=== PATIENT | female | born 1980 | race Caucasian/White ===

== ENCOUNTER → 2018-08-12 09:27 | Outpatient (CLI) | payer MEDICAID, SELFPAY ==
--- NOTE | 2018-08-12 09:29 | MRI_ITS ---
STUDY: MRI CERVICAL SPINE WITHOUT CONTRAST REASON FOR EXAM: Female, 37 years old. Neck pain and left arm numbness and weakness TECHNIQUE: Standardized fat and water weighted pulse sequences were obtained in the sagittal and axial planes. COMPARISON: None FINDINGS: Normal foramen magnum and brainstem-cervical cord junction. Normal craniovertebral junction. Normal anterior atlantoaxial articulation. Normal odontoid process. Normal cervical lordosis. Normal vertebral bodies and posterior osseous elements. C2-3: Normal endplates. Normal disc height, signal and morphology. Normal central canal and intervertebral neural foramina. C3-4: Normal endplates. Normal disc height, signal and morphology. Normal central canal and intervertebral neural foramina. C4-5: Normal endplates. Normal disc height, signal and morphology. Normal central canal and intervertebral neural foramina. C5-6: Normal endplates. Normal disc height, signal and morphology. Normal central canal and intervertebral neural foramina. C6-7: Normal endplates. Normal disc height, signal and morphology. Normal central canal and intervertebral neural foramina. C7-T1: Normal endplates. Normal disc height, signal and morphology. Normal central canal and intervertebral neural foramina. Normal cervical cord. Normal visualized soft tissue structures. MRI/Spine Cervical (Routine) IMPRESSION: Normal unenhanced MR examination of the cervical spine. Electronically Signed: Vikram Dobbs MD at 22:37 EST , Service support ,
--- OUTSIDE RECORDS SUMMARY | 2018-10-17 01:11 | XMS RPT_ITS ---
:1980 Author Organization OHIP Care Team Providers Name Role Phone RANDALL MAGANA Attending Unavailable RANDALL MAGANA Attending Unavailable BETSY LEE ([place]) Attending Unavailable VAMSI SUE Referring Unavailable RANDALL MAGANA Referring Unavailable CHENCHO CANALES (BUSINESS INTELLIGENCE MANAGER) Attending Unavailable BETSY LEE (LAUREEN) Referring Unavailable EFREN AMIN Referring Unavailable YAMILEX UGALDE Attending Unavailable RANDALL MAGANA Referring Unavailable YAMILEX UGALDE Referring Unavailable BETSY LEE ([facility]) Attending Unavailable Randall Magana Attending Unavailable Randall Magana Referring Unavailable Randall Magana Primary Care Unavailable PROBLEMS PROBLEMS DATE TYPE CONDITION / CODE ATTENDING STATUS SOURCE 02/08/2015 Active Personal history of NA Active [facility] malignant neoplasm [place] of thyroid / Repository Z85.850(ICD-10) 12/12/2017 Active Brachial plexus NA Active [facility] disorders / [place] G54.0(ICD-10) Repository 11/05/2017 Active Unknown / JESUS Active [facility] UNK(Unknown) BETSY (BUSINESS INTELLIGENCE MANAGER) [place] Repository 08/28/2016 Active Type 2 diabetes NA Active [facility] mellitus with other [place] diabetic kidney Repository complication / E11.29(ICD-10) 08/28/2016 Active Proteinuria, NA Active [facility] unspecified / [place] R80.9(ICD-10) Repository 02/08/2015 Active Mixed hyperlipidemia NA Active [facility] / E78.2(ICD-10) [place] Repository 12/11/2012 Active Postprocedural NA Active [facility] hypothyroidism / [place] E89.0(ICD-10) Repository PROCEDURES PROCEDURES No Procedure Records FoundRESULTS RESULTS SPINE CERVICAL Observed: 08/12/2018 Status: F Source: [place] (ROUTINE) 9:29 AM [facility] REPOSITORY [facility] Imaging Services [address] [place] [address] Spine Cervical (Routine) MR#: [id number] Acct: [id number] Name: JUAN MENCHACA Rep #: [id number] : 1980 F 37 From: Vikram Dobbs MD PCP: Randall Avila DO Status: REG CLI Study: Spine Cervical (Routine) Date of Exam: 08/12/18 Exam# [id number] Ordering Dr: Randall Magana DO STUDY: MRI CERVICAL SPINE WITHOUT CONTRAST REASON FOR EXAM: Female, 37 years old. Neck pain and left arm numbness and weakness TECHNIQUE: Standardized fat and water weighted pulse sequences were obtained in the sagittal and axial planes. COMPARISON: None FINDINGS: Normal foramen magnum and brainstem-cervical cord junction. Normal craniovertebral junction. Normal anterior atlantoaxial articulation. Normal odontoid process. Normal cervical lordosis. Normal vertebral bodies and posterior osseous elements. C2-3: Normal endplates. Normal disc height, signal and morphology. Normal central canal and intervertebral neural foramina. C3-4: Normal endplates. Normal disc height, signal and morphology. Normal central canal and intervertebral neural foramina. C4-5: Normal endplates. Normal disc height, signal and morphology. Normal central canal and intervertebral neural foramina. C5-6: Normal endplates. Normal disc height, signal and morphology. Normal central canal and intervertebral neural foramina. C6-7: Normal endplates. Normal disc height, signal and morphology. Normal central canal and intervertebral neural foramina. C7-T1: Normal endplates. Normal disc height, signal and morphology. Normal central canal and intervertebral neural foramina. Normal cervical cord. Normal visualized soft tissue structures. MRI/Spine Cervical (Routine) IMPRESSION: Normal unenhanced MR examination of the cervical spine. Electronically Signed: Vikram Dobbs MD at 22:37 EST , Service support , CC: Randall Avila DO Spa Director: Signed PROGRESS Observed: 07/29/2018 Status: COMPLETED Source: [place] 8:15 AM [facility] HNO ID: [id number] Author: Betsy Lee Service: (none) Author Type: Nurse Practitioner Type: Progress Notes Filed: 07/30/2018 10:45 AM Note Text: DIABETES VISIT HISTORIES FAMILY HISTORY Problem Relation Age of Onset - Diabetes Mother diverticular disease - Hypertension Mother - Arthritis Mother - Asthma Mother - Lipids Mother - Cancer Mother 60 anal - Diabetes Father - Hypertension Father - Diabetes Sister - Thyroid Sister - Hypertension Sister - Diabetes Sister - other (endometriosis) Sister - Breast Cancer Maternal Grandmother 30 - Breast Cancer Maternal Aunt 18 bilateral mastectomy PAST MEDICAL HISTORY Diagnosis Date - Abnormal glandular Papanicolaou smear of cervix 2004 Abn. Pap smear (cervix) - Acute anal fissure now closed - Allergic rhinitis - Asthma CHILDHOOD ASTHMA - Coccygeal arthritis seen on xray - Diabetes mellitus 01/2010 NIDDM - Dyspareunia 07/24/2013 - GERD (gastroesophageal reflux disease) - Hidradenitis suppurativa 01/28/2012 - Hypertension - PCOS (polycystic ovarian syndrome) - Right shoulder pain 12/11/2012 - Rosacea - Thyroid cancer (HCC) 10/02/2012 s/p thyroidectomy, Dr. Camcaho PAST SURGICAL HISTORY Procedure Laterality Date - COLONOSCOP W/ OR W/O BRSH SPEC 09/07/2014 Colonoscopy - EGD W/O OR W/BRUSH/WASH 11/11/13 EGD - FNA WITH IMAGING 08/19/12 U/S FNA left thyroid nodule - LAPAROSCOPY DIAGNOSTIC 2011 ectopic salpingectomy, L ovarian cystectomies - LEEP PROCEDURE (EXECUTIVE DIRECTOR OF NURSING DEPT)_*FL 1993 [id number] - OTHER 08/03/2014 left axillary skin resection hidratinitis - THYROIDECTOMY 10-02-12 TOTAL - cancerous. 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 Social History Main Topics Smoking status: Current Every Day Smoker Packs/day: 0.50 Years: 9.00 Types: Cigarettes Last attempt to quit: 01/25/2014 Smokeless tobacco: Never Used Alcohol use: Yes Comment: Seldom Drug use: No Sexual activity: Yes Partners with: Male control/protection: Pill Immunization History Administered Date(s) Administered Influenza Seasonal Inj Quadrivalent Age 3+ 08/05/2016 04/21/2017 05/29/2018 Influenza Vaccine, Split-Non Spec 06/25/2011 06/22/2012 07/01/2013 Pneumovax 06/22/2012 ALLERGIES Allergen Reactions - Erythromycin Hives, Swelling Current Outpatient Prescriptions on File Prior to Visit: betamethasone dipropionate (DIPROSONE) 0.05 % cream Apply 1 application to affected area twice daily as needed. blood sugar diagnostic (FREESTYLE LITE STRIPS) test strip TEST BLOOD SUGARS 3 TIMES DAILY Blood-Glucose Meter, Drum-type (ACCU-CHEK COMPACT PLUS CARE) kit Use as directed 6 times daily cyclobenzaprine (FLEXERIL) 10 mg tablet TAKE 1 TABLET BY MOUTH THREE TIMES DAILY NEEDED. dicyclomine (BENTYL) 20 mg tablet TAKE 1 TABLET BY MOUTH 4 TIMES A DAY NEEDED diphenhydrAMINE (BENADRYL) 25 mg capsule Take 1 capsule by mouth every 6 hours as needed for Itching/Rash. glyBURIDE (DIABETA) 2.5 mg tablet Take 1 tablet by mouth twice daily with meals. levothyroxine (SYNTHROID) 175 mcg tablet Take 1 tablet by mouth once daily. metFORMIN (GLUCOPHAGE) 500 mg tablet Take 2 tablets by mouth twice daily with meals. pantoprazole DR (PROTONIX) 40 mg tablet Take 1 tablet by mouth once daily. polyethylene glycol 3350 (MIRALAX, GLYCOLAX) 17 gram packet Take 1 Packet by mouth once daily. (Patient taking differently: Take 17 g by mouth as needed. ) multivitamin ( VITAMIN WITH MINERALS) 28 mg iron- 800 mcg tab Take 1 tablet by mouth once daily. simvastatin (ZOCOR) 20 mg tablet Take 1 tablet by mouth daily at bedtime. wheat dextrin (BENEFIBER SUGAR FREE, DEXTRIN,) 3 gram/3.8 gram powd Take by mouth. No current facility-administered medications on file prior to visit. LABS TSH (uU/mL) Date Value 05/16/2018 0.701 11/01/2017 0.135 05/14/2017 0.674 ALT (U/L) Date Value 05/16/2018 21 11/01/2017 17 05/14/2017 24 Potassium (mmol/L) Date Value 05/16/2018 4.2 11/01/2017 4.6 Creatinine (mg/dL) Date Value 05/16/2018 0.87 11/01/2017 0.86 05/14/2017 0.79 Hemoglobin A1C (%) Date Value 05/16/2018 7.4 11/01/2017 6.1 05/14/2017 7.1 Albumin, Urine Random (mg/L) Date Value 11/01/2017 23.1 07/04/2016 71.0 04/26/2015 34.7 Creatinine, Ur Random (UCRR) (mg/dL) Date Value 11/01/2017 111.3 04/26/2015 120.6 Albumin/Creat Ratio (mg/g) Date Value 11/01/2017 21 04/26/2015 29 Glucose (mg/dL) Date Value 05/16/2018 168 11/01/2017 137 05/14/2017 168 Calcium (mg/dL) Date Value 05/16/2018 9.5 11/01/2017 9.9 Vitamin D 25 Hydroxy (ng/mL) Date Value 02/11/2013 35.5 11/04/2012 12.0 Lipids: Cholesterol, Total (mg/dL) Date Value 05/16/2018 240 11/01/2017 157 05/14/2017 156 HDL Cholesterol (mg/dL) Date Value 05/16/2018 30 11/01/2017 28 05/14/2017 27 LDL Cholesterol (mg/dL) Date Value 05/16/2018 143 11/01/2017 93 05/14/2017 86 Triglyceride (mg/dL) Date Value 05/16/2018 335 11/01/2017 181 05/14/2017 215 I reviewed the Slice Cutting Machine Operator Helper's notes with this visit for vital signs, current allergies, medications, electronic medical record, lab(s), outside lab(s), and or back office lab(s) results, history of vaccinations, and chief complaints. I edited the information obtained, as required. HISTORY OF PRESENT ILLNESS Last endo office visit: 11/05/2017 with me, last office visit with Dr. 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 Patient has had diabetes since 2009. Also known history of obesity, hypertension, hirsutism Family history re DM : parents Patient's last HgA1C was Hemoglobin A1C (%) Date Value 05/16/2018 7.4 Component Latest Ref Rng AND Units 08/05/2016 10/14/2016 05/14/2017 11/01/2017 05/16/2018 Thyroglobulin 1.6 - 59.9 ng/mL <0.2 (L) TG Antibody Screen <14.4 IU/mL 2.2 Free T4 0.9 - 1.7 ng/dL 1.6 1.5 2.0 (H) 1.8 (H) TSH 0.400 - 5.500 uU/mL 0.090 (L) 0.386 (L) 0.674 0.135 (L) 0.701 -in past office visit, the patient was contemplating , so medications were adjusted accordingly--she now states she is not going to become and will be discussing control with her EXECUTIVE DIRECTOR OF NURSING -she states that her was recently diagnosed with diabetes, so she and he are going to eating better -she had flu shot this fall -winding down from the holidays--had a houseful of children for -has weakness in left arm with numbness and tingling as well as decreased ROM--was told it is not Thoracic outlet syndrome by vascular surgeon --will be having this reevaluated soon Diet: Breakfast: 1/2 C cheerios + milk or toast + 4 oz Snack: yogurt --plain vanilla Lunch: Usually skips Dinner: Chicken + veg + mashed pots or spaghetti Tea/splenda Snack: pkg PB crackers Medications: The patient is currently taking the following medications to manage her diabetes: -metformin 500 mg two tablets twice daily -glyburide 2.5 mg twice daily The patient is currently taking levothyroxine 175 mcg daily to manage her thyroid CA She is compliant with medication(s) and is tolerating med(s) without any side effects. Monitoring: She reports checking her glucose with meter: 3 times a day BG Values: Patient did not bring meter or log for review today. Patient states FBSs 115-136 (usually the highest reading), Lunch ~ 105, Dinner 120-130 Other issues: Last Ophthalmology exam was 02/2018 Hypoglycemia awareness:yes, but rare occurrence. Exercise: exercise bike 30 min 3 times weekly REVIEW OF SYSTEMS: GENERAL: No weight loss, malaise or fevers WEIGHT: gained a few pounds over the holidays EYES:denies any recent visual changes CARDIAC: no chest pain, dyspnea, palpitations, edema, orthopnea, cough LUNG:Negative for cough, hemoptysis, wheezing, COPD, dyspnea or shortness of breath GI: no nausea, fullness, vomiting, diarrhea, constipation, GI bleeding or heartburn :no dysuria, frequency, hesitancy, hematuria, polyuria, nocturia, UTIs, yeast infections, or kidney stones SKIN: Pt denies ulceration,cellulitis, abscess, acne, hirsutism, rashes, or lesions FEET:Pt denies callus formation, foot deformity including partial or complete amputation of the foot, ulceration, or peripheral neuropathy MUSCULO-SKELETAL: see above, also left neck pain NERVOUS SYSTEM: no numbness, paresthesias, weakness, cramping, burning or dizziness The rest of the ROS is otherwise negative PHYSICAL EXAM: BP 140/86 (BP Site: Left Arm, BP Position: Sitting, BP Cuff Size: Regular Adult) Pulse 92 Ht 167.2 cm (5' 5.83) Wt 102.1 kg (225 lb) SpO2 95% BMI 36.51 kg/m? Wt: 100.7 kg (222 lb) BMI: 38.11 kg/(m2) Last 2 Encounter Wt Readings: Date: Wt: 07/17/2018 100.7 kg (222 lb) 05/29/2018 100.7 kg (222 lb) Appearance:Well appearing, alert, in no acute distress, well-hydrated, well nourished. and Obese Eyes:PERRLA, conjunctiva and sclera normal Neck: Supple, no adenopathy; thyroidectomy scar is visible Heart:RRR with no JVD appreciated Lungs:clear to auscultation Extremities: No skin discoloration and No edema Neuro:Awake, alert and oriented x 3, No involuntary motions. and Cranial nerves II-XII grossly intact Feet: Foot exam 07/17/2018 Skin:Color, texture, turgor normal. No rashes or lesions IMPRESSION AND PLAN: (E11.29, R80.9) Type 2 diabetes mellitus with microalbuminuria, without long-term current use of insulin (HCC) (primary encounter diagnosis) Comment: most recent A1c on 05/16 at 7.4%. Patient is not planning future , will add alogliptin Plan: -Medications: -continue metformin 50 mg two tablets twice daily -continue glyburide 2.5 mg twice daily -add alogliptin 25 mg daily -Refills: Yes, patient requests e-script prescription -Recommended diet: Low carbohydrate and Low saturated fat, low simple sugar, high fiber diet -Recommended exercise: 150 minutes of exercise weekly -Monitor blood glucose 2-3 times per day. The patient was advised to contact the office if the blood sugar readings are consistently high or if having frequent hypoglycemia. -Driving and Diabetes has been reviewed with the patient (E89.0) Hypothyroidism, postsurgical (Z85.850) History of thyroid cancer Comment: denies symptoms of hypo or hyperthyroidism with most recent labs 04/2018 Plan: -continue levothyroxine 175 mcg daily -follow up for thyroid in April 2019 (E66.09) Class 2 obesity due to excess calories in adult, unspecified BMI, unspecified whether serious comorbidity present Comment: Body mass index is 36.51 kg/m?. Plan: -discussed diet and exercise -encourage weight loss (R03.0) Elevated blood pressure reading without diagnosis of hypertension Comment: BP elevated today, she feels due to lack of sleep Plan: -she will take BP in community and follow up with PCP if needed Patient to continue to follow up with her Primary Care Provider and with other consultants regarding her other medical problems. Entire visit was 30 min with >50% of time spent as face to face counseling regarding blood sugar monitoring, review of risks, benefits, and side effects of medication(s), symptoms AND treatment of hypoglycemia, importance of diet adherence, discussion of BMI and weight goals and importance of exercise program and Plan of Care. Next visit in 9 months (April) with Dr. Sue . Betsy Lee MSN, BUSINESS INTELLIGENCE MANAGER, CDE Department of Endocrinology, Diabetes and Metabolism CNOV Observed: 07/29/2018 Status: COMPLETED Source: [place] 8:15 AM [facility] REPOSITORY Office Visit (ENDMED) JUAN MENCHACA ([id number]) 1980 F Date Time Provider Department 07/29/18 8:15 AM BETSY LEE (LAUREEN) MARGARETTE During your visit today, we recorded the following information about you: Pulse Blood pressure Weight Height 92/minute 140/86 102.1 kg 1.672 m Betsy Lee APRN.CNP 07/30/2018 10:45 AM Signed DIABETES VISIT HISTORIES FAMILY HISTORY Problem Relation Age of Onset - Diabetes Mother diverticular disease - Hypertension Mother - Arthritis Mother - Asthma Mother - Lipids Mother - Cancer Mother 60 anal - Diabetes Father - Hypertension Father - Diabetes Sister - Thyroid Sister - Hypertension Sister - Diabetes Sister - other (endometriosis) Sister - Breast Cancer Maternal Grandmother 30 - Breast Cancer Maternal Aunt 18 bilateral mastectomy PAST MEDICAL HISTORY Diagnosis Date - Abnormal glandular Papanicolaou smear of cervix 2004 Abn. Pap smear (cervix) - Acute anal fissure now closed - Allergic rhinitis - Asthma CHILDHOOD ASTHMA - Coccygeal arthritis seen on xray - Diabetes mellitus 01/2010 NIDDM - Dyspareunia 07/24/2013 - GERD (gastroesophageal reflux disease) - Hidradenitis suppurativa 01/28/2012 - Hypertension - PCOS (polycystic ovarian syndrome) - Right shoulder pain 12/11/2012 - Rosacea - Thyroid cancer (HCC) 10/02/2012 s/p thyroidectomy, Dr. Camacho PAST SURGICAL HISTORY Procedure Laterality Date - COLONOSCOP W/ OR W/O BRSH SPEC 09/07/2014 Colonoscopy - EGD W/O OR W/BRUSH/WASH 11/11/13 EGD - FNA WITH IMAGING 08/19/12 U/S FNA left thyroid nodule - LAPAROSCOPY DIAGNOSTIC 2011 ectopic salpingectomy, L ovarian cystectomies - LEEP PROCEDURE (EXECUTIVE DIRECTOR OF NURSING DEPT)_*FL 1993 [id number] - OTHER 08/03/2014 left axillary skin resection hidratinitis - THYROIDECTOMY 10-02-12 TOTAL - cancerous. 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 Social History Main Topics Smoking status: Current Every Day Smoker Packs/day: 0.50 Years: 9.00 Types: Cigarettes Last attempt to quit: 01/25/2014 Smokeless tobacco: Never Used Alcohol use: Yes Comment: Seldom Drug use: No Sexual activity: Yes Partners with: Male control/protection: Pill Immunization History Administered Date(s) Administered Influenza Seasonal Inj Quadrivalent Age 3+ 08/05/2016 04/21/2017 05/29/2018 Influenza Vaccine, Split-Non Spec 06/25/2011 06/22/2012 07/01/2013 Pneumovax 06/22/2012 ALLERGIES Allergen Reactions - Erythromycin Hives, Swelling Current Outpatient Prescriptions on File Prior to Visit: betamethasone dipropionate (DIPROSONE) 0.05 % cream Apply 1 application to affected area twice daily as needed. blood sugar diagnostic (FREESTYLE LITE STRIPS) test strip TEST BLOOD SUGARS 3 TIMES DAILY Blood-Glucose Meter, Drum-type (ACCU-CHEK COMPACT PLUS CARE) kit Use as directed 6 times daily cyclobenzaprine (FLEXERIL) 10 mg tablet TAKE 1 TABLET BY MOUTH THREE TIMES DAILY NEEDED. dicyclomine (BENTYL) 20 mg tablet TAKE 1 TABLET BY MOUTH 4 TIMES A DAY NEEDED diphenhydrAMINE (BENADRYL) 25 mg capsule Take 1 capsule by mouth every 6 hours as needed for Itching/Rash. glyBURIDE (DIABETA) 2.5 mg tablet Take 1 tablet by mouth twice daily with meals. levothyroxine (SYNTHROID) 175 mcg tablet Take 1 tablet by mouth once daily. metFORMIN (GLUCOPHAGE) 500 mg tablet Take 2 tablets by mouth twice daily with meals. pantoprazole DR (PROTONIX) 40 mg tablet Take 1 tablet by mouth once daily. polyethylene glycol 3350 (MIRALAX, GLYCOLAX) 17 gram packet Take 1 Packet by mouth once daily. (Patient taking differently: Take 17 g by mouth as needed. ) multivitamin ( VITAMIN WITH MINERALS) 28 mg iron- 800 mcg tab Take 1 tablet by mouth once daily. simvastatin (ZOCOR) 20 mg tablet Take 1 tablet by mouth daily at bedtime. wheat dextrin (BENEFIBER SUGAR FREE, DEXTRIN,) 3 gram/3.8 gram powd Take by mouth. No current facility-administered medications on file prior to visit. LABS TSH (uU/mL) Date Value 05/16/2018 0.701 11/01/2017 0.135 05/14/2017 0.674 ALT (U/L) Date Value 05/16/2018 21 11/01/2017 17 05/14/2017 24 Potassium (mmol/L) Date Value 05/16/2018 4.2 11/01/2017 4.6 Creatinine (mg/dL) Date Value 05/16/2018 0.87 11/01/2017 0.86 05/14/2017 0.79 Hemoglobin A1C (%) Date Value 05/16/2018 7.4 11/01/2017 6.1 05/14/2017 7.1 Albumin, Urine Random (mg/L) Date Value 11/01/2017 23.1 07/04/2016 71.0 04/26/2015 34.7 Creatinine, Ur Random (UCRR) (mg/dL) Date Value 11/01/2017 111.3 04/26/2015 120.6 Albumin/Creat Ratio (mg/g) Date Value 11/01/2017 21 04/26/2015 29 Glucose (mg/dL) Date Value 05/16/2018 168 11/01/2017 137 05/14/2017 168 Calcium (mg/dL) Date Value 05/16/2018 9.5 11/01/2017 9.9 Vitamin D 25 Hydroxy (ng/mL) Date Value 02/11/2013 35.5 11/04/2012 12.0 Lipids: Cholesterol, Total (mg/dL) Date Value 05/16/2018 240 11/01/2017 157 05/14/2017 156 HDL Cholesterol (mg/dL) Date Value 05/16/2018 30 11/01/2017 28 05/14/2017 27 LDL Cholesterol (mg/dL) Date Value 05/16/2018 143 11/01/2017 93 05/14/2017 86 Triglyceride (mg/dL) Date Value 05/16/2018 335 11/01/2017 181 05/14/2017 215 I reviewed the Slice Cutting Machine Operator Helper's notes with this visit for vital signs, current allergies, medications, electronic medical record, lab(s), outside lab(s), and or back office lab(s) results, history of vaccinations, and chief complaints. I edited the information obtained, as required. HISTORY OF PRESENT ILLNESS Last endo office visit: 11/05/2017 with me, last office visit with Dr. 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 Patient has had diabetes since 2009. Also known history of obesity, hypertension, hirsutism Family history re DM : parents Patient's last HgA1C was Hemoglobin A1C (%) Date Value 05/16/2018 7.4 Component Latest Ref Rng AND Units 08/05/2016 10/14/2016 05/14/2017 11/01/2017 05/16/2018 Thyroglobulin 1.6 - 59.9 ng/mL <0.2 (L) TG Antibody Screen <14.4 IU/mL 2.2 Free T4 0.9 - 1.7 ng/dL 1.6 1.5 2.0 (H) 1.8 (H) TSH 0.400 - 5.500 uU/mL 0.090 (L) 0.386 (L) 0.674 0.135 (L) 0.701 -in past office visit, the patient was contemplating , so medications were adjusted accordingly--she now states she is not going to become and will be discussing control with her EXECUTIVE DIRECTOR OF NURSING -she states that her was recently diagnosed with diabetes, so she and he are going to eating better -she had flu shot this fall -winding down from the holidays--had a houseful of children for -has weakness in left arm with numbness and tingling as well as decreased ROM--was told it is not Thoracic outlet syndrome by vascular surgeon --will be having this reevaluated soon Diet: Breakfast: 1/2 C cheerios + milk or toast + 4 oz Snack: yogurt --plain vanilla Lunch: Usually skips Dinner: Chicken + veg + mashed pots or spaghetti Tea/splenda Snack: pkg PB crackers Medications: The patient is currently taking the following medications to manage her diabetes: -metformin 500 mg two tablets twice daily -glyburide 2.5 mg twice daily The patient is currently taking levothyroxine 175 mcg daily to manage her thyroid CA She is compliant with medication(s) and is tolerating med(s) without any side effects. Monitoring: She reports checking her glucose with meter: 3 times a day BG Values: Patient did not bring meter or log for review today. Patient states FBSs 115-136 (usually the highest reading), Lunch ~ 105, Dinner 120-130 Other issues: Last Ophthalmology exam was 02/2018 Hypoglycemia awareness:yes, but rare occurrence. Exercise: exercise bike 30 min 3 times weekly REVIEW OF SYSTEMS: GENERAL: No weight loss, malaise or fevers WEIGHT: gained a few pounds over the holidays EYES:denies any recent visual changes CARDIAC: no chest pain, dyspnea, palpitations, edema, orthopnea, cough LUNG:Negative for cough, hemoptysis, wheezing, COPD, dyspnea or shortness of breath GI: no nausea, fullness, vomiting, diarrhea, constipation, GI bleeding or heartburn :no dysuria, frequency, hesitancy, hematuria, polyuria, nocturia, UTIs, yeast infections, or kidney stones SKIN: Pt denies ulceration,cellulitis, abscess, acne, hirsutism, rashes, or lesions FEET:Pt denies callus formation, foot deformity including partial or complete amputation of the foot, ulceration, or peripheral neuropathy MUSCULO-SKELETAL: see above, also left neck pain NERVOUS SYSTEM: no numbness, paresthesias, weakness, cramping, burning or dizziness The rest of the ROS is otherwise negative PHYSICAL EXAM: BP 140/86 (BP Site: Left Arm, BP Position: Sitting, BP Cuff Size: Regular Adult) Pulse 92 Ht 167.2 cm (5' 5.83) Wt 102.1 kg (225 lb) SpO2 95% BMI 36.51 kg/m? Wt: 100.7 kg (222 lb) BMI: 38.11 kg/(m2) Last 2 Encounter Wt Readings: Date: Wt: 07/17/2018 100.7 kg (222 lb) 05/29/2018 100.7 kg (222 lb) Appearance:Well appearing, alert, in no acute distress, well- hydrated, well nourished. and Obese Eyes:PERRLA, conjunctiva and sclera normal Neck: Supple, no adenopathy; thyroidectomy scar is visible Heart:RRR with no JVD appreciated Lungs:clear to auscultation Extremities: No skin discoloration and No edema Neuro:Awake, alert and oriented x 3, No involuntary motions. and Cranial nerves II-XII grossly intact Feet: Foot exam 07/17/2018 Skin:Color, texture, turgor normal. No rashes or lesions IMPRESSION AND PLAN: (E11.29, R80.9) Type 2 diabetes mellitus with microalbuminuria, without long-term current use of insulin ([facility]) (primary encounter diagnosis) Comment: most recent A1c on 05/16 at 7.4%. Patient is not planning future , will add alogliptin Plan: -Medications: -continue metformin 50 mg two tablets twice daily -continue glyburide 2.5 mg twice daily -add alogliptin 25 mg daily -Refills: Yes, patient requests e-script prescription -Recommended diet: Low carbohydrate and Low saturated fat, low simple sugar, high fiber diet -Recommended exercise: 150 minutes of exercise weekly -Monitor blood glucose 2-3 times per day. The patient was advised to contact the office if the blood sugar readings are consistently high or if having frequent hypoglycemia. -Driving and Diabetes has been reviewed with the patient (E89.0) Hypothyroidism, postsurgical (Z85.850) History of thyroid cancer Comment: denies symptoms of hypo or hyperthyroidism with most recent labs 04/2018 Plan: -continue levothyroxine 175 mcg daily -follow up for thyroid in April 2019 (E66.09) Class 2 obesity due to excess calories in adult, unspecified BMI, unspecified whether serious comorbidity present Comment: Body mass index is 36.51 kg/m?. Plan: -discussed diet and exercise -encourage weight loss (R03.0) Elevated blood pressure reading without diagnosis of hypertension Comment: BP elevated today, she feels due to lack of sleep Plan: -she will take BP in community and follow up with PCP if needed Patient to continue to follow up with her Primary Care Provider and with other consultants regarding her other medical problems. Entire visit was 30 min with >50% of time spent as face to face counseling regarding blood sugar monitoring, review of risks, benefits, and side effects of medication(s), symptoms AND treatment of hypoglycemia, importance of diet adherence, discussion of BMI and weight goals and importance of exercise program and Plan of Care. Next visit in 9 months (April) with Dr. Sue . Betsy Lee MSN, BUSINESS INTELLIGENCE MANAGER, CDE Department of Endocrinology, Diabetes and Metabolism Betsy Lee, GAMBLING SUPERVISOR.LAUREEN 07/29/2018 9:17 AM Signed Continue metformin 500 mg two tablets twice daily Continue glyburide 2.5 mg twice daily Add alogliptin 25 mg daily Referring Provider: SELF [200] Allergies As of Date: 07/29/2018 Noted Allergy Reaction ERYTHROMYCIN 01/02/2009 4 - Hives 7 - Swelling Date Reviewed: 07/29/2018 Reviewed by: Betsy (Laureen) Jesus - Fully Assessed Reason for Visit: Diabetes [34] Primary Visit Diagnosis:Type 2 diabetes mellitus with microalbuminuria, without long-term current use of insulin (HCC) [E11.29, R80.9] Other Visit Diagnoses:Hypothyroidism, postsurgical [E89.0] History of thyroid cancer [Z85.850] Class 2 obesity due to excess calories in adult, unspecified BMI, unspecified whether serious comorbidity present [E66.09] Elevated blood pressure reading without diagnosis of hypertension [R03.0] Order(s):dicyclomine (BENTYL) 20 mg tabletTAKE 1 TABLET BY MOUTH 4 TIMES A DAY NEEDEDDisp: 120 tabletRfl: 6 metFORMIN (GLUCOPHAGE) 500 mg tabletTake 2 tablets by mouth twice daily with meals.Disp: 360 tabletRfl: 3 levothyroxine (SYNTHROID) 175 mcg tabletTake 1 tablet by mouth once daily.Disp: 90 tabletRfl: 3 glyBURIDE (DIABETA) 2.5 mg tabletTake 1 tablet by mouth twice daily with meals.Disp: 90 tabletRfl: 3 alogliptin (NESINA) 25 mg tabTake 1 tablet by mouth once daily.Disp: 90 tabletRfl: 3 Prescriptions as of 07/29/2018 Sig: METFORMIN 500 MG TABLET Take 2 tablets by mouth twice* LEVOTHYROXINE 175 MCG TABLET Take 1 tablet by mouth once d* GLYBURIDE 2.5 MG TABLET Take 1 tablet by mouth twice * CYCLOBENZAPRINE 10 MG TABLET TAKE 1 TABLET BY MOUTH THREE * SIMVASTATIN 20 MG TABLET Take 1 tablet by mouth daily * WHEAT DEXTRIN 3 GRAM/3.8 GRAM* Take by mouth. BLOOD SUGAR DIAGNOSTIC STRIPS TEST BLOOD SUGARS 3 TIMES OSORIO* POLYETHYLENE GLYCOL 3350 17 G* Take 1 Packet by mouth once d* Patient taking differently: Take 17 g by mouth as needed.* PANTOPRAZOLE 40 MG TABLET,DEL* Take 1 tablet by mouth once d* BETAMETHASONE DIPROPIONATE 0.* Apply 1 application to affect* DICYCLOMINE 20 MG TABLET TAKE 1 TABLET BY MOUTH 4 TIME* ALOGLIPTIN 25 MG TABLET Take 1 tablet by mouth once d* BLOOD-GLUCOSE METER, DRUM-TYP* Use as directed 6 times daily Medication notes this encounter DIPHENHYDRAMINE 25 MG CAPSULE >> Giovany Baker Ma 07/29/2018 8:34 AM >> GIOVANY BAKER MA FriJul 29, 2018 8:34 AM D/c VITAMIN-FERROUS FUMARATE 28 MG IRON-FOLIC ACID 800 MCG TABLET >> Giovany Baker Ma 07/29/2018 8:35 AM >> GIOVANY BAKER MA FriJul 29, 2018 8:35 AM D/c Problem List As Of Date 07/29/2018 Noted Resolved Supervision of other high-risk [O09.8*INVALID FOR*01/28/2012 Obesity [E66.9] INVALID FOR* GERD (gastroesophageal reflux disease) [K21.9] INVALID FOR* Depression [F32.9] INVALID FOR* Hypothyroidism, postsurgical [E89.0] INVALID FOR* Type 2 diabetes mellitus with microalbuminuria,*INVALID FOR* Hyperprolactinemia [E22.1] INVALID FOR*08/16/2014 Stress incontinence [N39.3] INVALID FOR* Mixed hyperlipidemia [E78.2] INVALID FOR* History of thyroid cancer [Z85.850] INVALID FOR* Coccygeal arthritis [M48.9] INVALID FOR*08/28/2016 Obesity, Class I, BMI 30-34.9 [E66.9] INVALID FOR* Constipation [K59.00] INVALID FOR* Paresthesia of left arm [R20.2] INVALID FOR* Paresthesia of right arm [R20.2] INVALID FOR* Varicose veins of bilateral lower extremities w*INVALID FOR* Arterial thoracic outlet syndrome of left subcl*INVALID FOR* Other instructions from your clinician: Continue metformin 500 mg two tablets twice daily Continue glyburide 2.5 mg twice daily Add alogliptin 25 mg daily Prescriptions ordered this encounter Disp Refills Start End DICYCLOMINE 20 MG TABLET 120 * 6 07/29/2018 Class: Med Update Sig: TAKE 1 TABLET BY MOUTH 4 TIMES A DAY NEEDED METFORMIN 500 MG TABLET 360 * 3 07/29/2018 Route: ORAL Sig: Take 2 tablets by mouth twice daily with meals. LEVOTHYROXINE 175 MCG TABLET 90 t* 3 07/29/2018 Route: ORAL Sig: Take 1 tablet by mouth once daily. GLYBURIDE 2.5 MG TABLET 90 t* 3 07/29/2018 Route: ORAL Sig: Take 1 tablet by mouth twice daily with meals. ALOGLIPTIN 25 MG TABLET 90 t* 3 07/29/2018 Route: ORAL Sig: Take 1 tablet by mouth once daily. Medications Discontinued During This Encounter dicyclomine (BENTYL) 20 mg tablet 120 * 6 11/14/2016 07/29/2018 Sig: TAKE 1 TABLET BY MOUTH 4 TIMES A DAY NEEDED Disc: Course of therapy completed Cosign accepted by ALYSON RITTER MD[[id number]] on 11/15/2016 7:16 AM diphenhydrAMINE (BENADRYL) 25 mg cap* 20 c* 0 10/03/2017 07/29/2018 Route: ORAL Sig: Take 1 capsule by mouth every 6 hours as needed for Itching/Rash. Disc: Course of therapy completed multivitamin ( WARD* 90 t* 3 06/18/2017 07/29/2018 Route: ORAL Sig: Take 1 tablet by mouth once daily. Disc: Course of therapy completed metFORMIN (GLUCOPHAGE) 500 mg tablet 360 * 0 06/22/2018 07/29/2018 Route: ORAL Sig: Take 2 tablets by mouth twice daily with meals. Disc: Reason for discontinue is not on file. levothyroxine (SYNTHROID) 175 mcg ta* 30 t* 1 06/22/2018 07/29/2018 Route: ORAL Sig: Take 1 tablet by mouth once daily. Disc: Reason for discontinue is not on file. glyBURIDE (DIABETA) 2.5 mg tablet 90 t* 0 05/29/2018 07/29/2018 Route: ORAL Sig: Take 1 tablet by mouth twice daily with meals. Disc: Reason for discontinue is not on file. Follow-up and Disposition History Recorded Encounter Status:Closed by BETSY LEE CNP on 07/30/18 PROGRESS Observed: 07/17/2018 Status: COMPLETED Source: [place] 1:41 PM [facility] RE[facility]IT[facility] O ID: [id number] Author: Randall Magana Service: (none) Author Type: Physician Type: Progress Notes Filed: 07/18/2018 8:08 AM Note Text: WILLIAMS Menchaca is a 37 year old female who presents to the office for left arm pain HPI: Left neck and arm pain into hands, has been occurring on a constant with intermittent worsening basis for several years. Was diagnosed with concerns for thoracic arterial origin outlet syndrome per testing at [facility]. She was recently seen by Vascular surgeon who repeated the testing in his office but less comprehensive testing and states that she doesn't have TOS. She is getting frustrated since she continues to have worsening weakness in her left hand, tingling in left hand/fingers as well as difficulty with raising left shoulder above 90 degrees based on demonstration. Symptoms into the neck, these issues all started after a fall off of a swing several years ago. Has been using different NSAIDs and other topical medications without relief. PAST MEDICAL HISTORY Diagnosis Date - Abnormal glandular Papanicolaou smear of cervix 2004 Abn. Pap smear (cervix) - Acute anal fissure now closed - Allergic rhinitis - Asthma CHILDHOOD ASTHMA - Coccygeal arthritis seen on xray - Diabetes mellitus 01/2010 NIDDM - Dyspareunia 07/24/2013 - GERD (gastroesophageal reflux disease) - Hidradenitis suppurativa 01/28/2012 - Hypertension - PCOS (polycystic ovarian syndrome) - Right shoulder pain 12/11/2012 - Rosacea - Thyroid cancer (HCC) 10/02/2012 s/p thyroidectomy, Dr. Camacho PAST SURGICAL HISTORY Procedure Laterality Date - COLONOSCOP W/ OR W/O [facility] SPEC 09/07/2014 Colonoscopy - EGD W/O OR W/BRUSH/WASH 11/11/13 EGD - FNA WITH IMAGING 08/19/12 U/S FNA left thyroid nodule - LAPAROSCOPY DIAGNOSTIC 2011 ectopic salpingectomy, L ovarian cystectomies - LEEP PROCEDURE (EXECUTIVE DIRECTOR OF NURSING DEPT)_*FL 1993 [id number] - OTHER 08/03/2014 left axillary skin resection hidratinitis - THYROIDECTOMY 10-02-12 TOTAL - cancerous. Current Outpatient Prescriptions: betamethasone dipropionate (DIPROSONE) 0.05 % cream Apply 1 application to affected area twice daily as needed. blood sugar diagnostic (FREESTYLE LITE STRIPS) test strip TEST BLOOD SUGARS 3 TIMES DAILY cyclobenzaprine (FLEXERIL) 10 mg tablet TAKE 1 TABLET BY MOUTH THREE TIMES DAILY NEEDED. dicyclomine (BENTYL) 20 mg tablet TAKE 1 TABLET BY MOUTH 4 TIMES A DAY NEEDED diphenhydrAMINE (BENADRYL) 25 mg capsule Take 1 capsule by mouth every 6 hours as needed for Itching/Rash. glyBURIDE (DIABETA) 2.5 mg tablet Take 1 tablet by mouth twice daily with meals. levothyroxine (SYNTHROID) 175 mcg tablet Take 1 tablet by mouth once daily. metFORMIN (GLUCOPHAGE) 500 mg tablet Take 2 tablets by mouth twice daily with meals. polyethylene glycol 3350 (MIRALAX, GLYCOLAX) 17 gram packet Take 1 Packet by mouth once daily. (Patient taking differently: Take 17 g by mouth as needed. ) multivitamin ( VITAMIN WITH MINERALS) 28 mg iron- 800 mcg tab Take 1 tablet by mouth once daily. simvastatin (ZOCOR) 20 mg tablet Take 1 tablet by mouth daily at bedtime. wheat dextrin (BENEFIBER SUGAR FREE, DEXTRIN,) 3 gram/3.8 gram powd Take by mouth. Blood-Glucose Meter, Drum-type (ACCU-CHEK COMPACT PLUS CARE) kit Use as directed [address] (PROTONIX) 40 mg tablet Take 1 tablet by mouth once daily. No current facility-administered medications for this visit. 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 Uvula midline. Neck: No LAD, no thyromegaly, no meningismus. CV: RRR, no murmur Lungs: CTA b/l, no wheezing Skin: No rashes, lesions, or wounds on exposed skin. 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 Chronic neck pain - ICD9: 723.1, 338.29, ICD10: M54.2, G89.29 (primary diagnosis) - unsure cause, need for MRI cervical spine to make sure cervical nerve impingement or herniated disc is not a contributing cause to symptoms since has failed multiple rounds of PHYSICAL THERAPY and conservative tx - MRI CERVICAL SPINE WO IVCON - DIAZEPAM 5 MG TABLET 2. Radiculopathy of lumbar region - ICD9: 724.4, ICD10: M54.16 - unsure cause, need for MRI cervical spine to make sure cervical nerve impingement or herniated disc is not a contributing cause to symptoms since has failed multiple rounds of PHYSICAL THERAPY and conservative tx - MRI CERVICAL SPINE WO IVCON - DIAZEPAM 5 MG TABLET 3. Weakness of left arm - ICD9: 729.89, ICD10: R29.898 - unsure cause, need for MRI cervical spine to make sure cervical nerve impingement or herniated disc is not a contributing cause to symptoms since has failed multiple rounds of PHYSICAL THERAPY and conservative tx - MRI CERVICAL SPINE WO IVCON - DIAZEPAM 5 MG TABLET 4. Paresthesia of left arm - ICD9: 782.0, ICD10: R20.2 - unsure cause, need for MRI cervical spine to make sure cervical nerve impingement or herniated disc is not a contributing cause to symptoms since has failed multiple rounds of PHYSICAL THERAPY and conservative tx - MRI CERVICAL SPINE WO IVCON - DIAZEPAM 5 MG TABLET Randall Magana DO Return if no improvement. Follow up with Randall Magana DO. Discussed risks, benefits, alternatives, and potential side effects of medications. Patient/Guardian expressed understanding and agreed with the plan. See patient instructions. Randall Magana DO [address] [place] [address] CNOV Observed: 07/17/2018 Status: COMPLETED Source: [place] 1:40 PM [facility] Office Visit (FAMPWS) JUAN MENCHACA ([id number]) 1980 F Date Time Provider Department 07/17/18 1:40 PM RANDALL MAGANA During your visit today, we recorded the following information about you: Temperature Pulse Respiration Blood pressure 98.5 degrees 80/minute 16/minute 120/70 Weight Last Period 100.7 kg 05/25/18 Randall Magana DO 07/18/2018 8:08 AM Signed CC Juan Menchaca is a 37 year old female who presents to the office for left arm pain HPI: Left neck and arm pain into hands, has been occurring on a constant with intermittent worsening basis for several years. Was diagnosed with concerns for thoracic arterial origin outlet syndrome per testing at [facility]. She was recently seen by Vascular surgeon who repeated the testing in his office but less comprehensive testing and states that she doesn't have TOS. She is getting frustrated since she continues to have worsening weakness in her left hand, tingling in left hand/fingers as well as difficulty with raising left shoulder above 90 degrees based on demonstration. Symptoms into the neck, these issues all started after a fall off of a swing several years ago. Has been using different NSAIDs and other topical medications without relief. PAST MEDICAL HISTORY Diagnosis Date - Abnormal glandular Papanicolaou smear of cervix 2004 Abn. Pap smear (cervix) - Acute anal fissure now closed - Allergic rhinitis - Asthma CHILDHOOD ASTHMA - Coccygeal arthritis seen on xray - Diabetes mellitus 01/2010 NIDDM - Dyspareunia 07/24/2013 - GERD (gastroesophageal reflux disease) - Hidradenitis suppurativa 01/28/2012 - Hypertension - PCOS (polycystic ovarian syndrome) - Right shoulder pain 12/11/2012 - Rosacea - Thyroid cancer (HCC) 10/02/2012 s/p thyroidectomy, Dr. Camacho PAST SURGICAL HISTORY Procedure Laterality Date - COLONOSCOP W/ OR W/O [facility] SPEC 09/07/2014 Colonoscopy - EGD W/O OR W/BRUSH/WASH 11/11/13 EGD - FNA WITH IMAGING 08/19/12 U/S FNA left thyroid nodule - LAPAROSCOPY DIAGNOSTIC 2011 ectopic salpingectomy, L ovarian cystectomies - LEEP PROCEDURE (EXECUTIVE DIRECTOR OF NURSING DEPT)_*FL 1993 [id number] - OTHER 08/03/2014 left axillary skin resection hidratinitis - THYROIDECTOMY 10-02-12 TOTAL - cancerous. Current Outpatient Prescriptions: betamethasone dipropionate (DIPROSONE) 0.05 % cream Apply 1 application to affected area twice daily as needed. blood sugar diagnostic (FREESTYLE LITE STRIPS) test strip TEST BLOOD SUGARS 3 TIMES DAILY cyclobenzaprine (FLEXERIL) 10 mg tablet TAKE 1 TABLET BY MOUTH THREE TIMES DAILY NEEDED. dicyclomine (BENTYL) 20 mg tablet TAKE 1 TABLET BY MOUTH 4 TIMES A DAY NEEDED diphenhydrAMINE (BENADRYL) 25 mg capsule Take 1 capsule by mouth every 6 hours as needed for Itching/Rash. glyBURIDE (DIABETA) 2.5 mg tablet Take 1 tablet by mouth twice daily with meals. levothyroxine (SYNTHROID) 175 mcg tablet Take 1 tablet by mouth once daily. metFORMIN (GLUCOPHAGE) 500 mg tablet Take 2 tablets by mouth twice daily with meals. polyethylene glycol 3350 (MIRALAX, GLYCOLAX) 17 gram packet Take 1 Packet by mouth once daily. (Patient taking differently: Take 17 g by mouth as needed. ) multivitamin ( VITAMIN WITH MINERALS) 28 mg iron- 800 mcg tab Take 1 tablet by mouth once daily. simvastatin (ZOCOR) 20 mg tablet Take 1 tablet by mouth daily at bedtime. wheat dextrin (BENEFIBER SUGAR FREE, DEXTRIN,) 3 gram/3.8 gram powd Take by mouth. Blood-Glucose Meter, Drum-type (ACCU-CHEK COMPACT PLUS CARE) kit Use as directed [address] (PROTONIX) 40 mg tablet Take 1 tablet by mouth once daily. No current facility-administered medications for this visit. 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 Uvula midline. Neck: No LAD, no thyromegaly, no meningismus. CV: RRR, no murmur Lungs: CTA b/l, no wheezing Skin: No rashes, lesions, or wounds on exposed skin. 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 Chronic neck pain - ICD9: 723.1, 338.29, ICD10: M54.2, G89.29 (primary diagnosis) - unsure cause, need for MRI cervical spine to make sure cervical nerve impingement or herniated disc is not a contributing cause to symptoms since has failed multiple rounds of PHYSICAL THERAPY and conservative tx - MRI CERVICAL SPINE WO IVCON - DIAZEPAM 5 MG TABLET 2. Radiculopathy of lumbar region - ICD9: 724.4, ICD10: M54.16 - unsure cause, need for MRI cervical spine to make sure cervical nerve impingement or herniated disc is not a contributing cause to symptoms since has failed multiple rounds of PHYSICAL THERAPY and conservative tx - MRI CERVICAL SPINE WO IVCON - DIAZEPAM 5 MG TABLET 3. Weakness of left arm - ICD9: 729.89, ICD10: R29.898 - unsure cause, need for MRI cervical spine to make sure cervical nerve impingement or herniated disc is not a contributing cause to symptoms since has failed multiple rounds of PHYSICAL THERAPY and conservative tx - MRI CERVICAL SPINE WO IVCON - DIAZEPAM 5 MG TABLET 4. Paresthesia of left arm - ICD9: 782.0, ICD10: R20.2 - unsure cause, need for MRI cervical spine to make sure cervical nerve impingement or herniated disc is not a contributing cause to symptoms since has failed multiple rounds of PHYSICAL THERAPY and conservative tx - MRI CERVICAL SPINE WO IVCON - DIAZEPAM 5 MG TABLET Randall Magana DO Return if no improvement. Follow up with Randall Magana DO. Discussed risks, benefits, alternatives, and potential side effects of medications. Patient/Guardian expressed understanding and agreed with the plan. See patient instructions. Randall Magana DO [address] [place] [address] Ranadll Magana DO 07/17/2018 1:[address] Johan Vuong- [facility], vascular surgeon Dr. Jim Alarcon - [facility], Vascular surgeon Referring Provider: SELF [200] Allergies As of Date: 07/17/2018 Noted Allergy Reaction ERYTHROMYCIN 01/02/2009 4 - Hives 7 - Swelling Date Reviewed: 07/17/2018 Reviewed by: Jeimy Kilpatrick LPN - Fully Assessed Reason for Visit: Follow Up [171] Cmt: left side Primary Visit Diagnosis:Chronic neck pain [M54.2, G89.29] Other Visit Diagnoses:Radiculopathy of lumbar region [M54.16] Weakness of left arm [R29.898] Paresthesia of left arm [R20.2] Order(s):MRI CERVICAL SPINE WO JGON [[id number]] Order #: [id number] FUTURE [] diazePAM (VALIUM) 5 mg tabletTake 1-2 tablets by mouth once in interventional radiology for 1 dose.Disp: 2 tabletRfl: 1 Prescriptions as of 07/17/2018 Sig: BETAMETHASONE DIPROPIONATE 0.* Apply 1 application to affect* BLOOD SUGAR DIAGNOSTIC STRIPS TEST BLOOD SUGARS 3 TIMES OSORIO* CYCLOBENZAPRINE 10 MG TABLET TAKE 1 TABLET BY MOUTH THREE * DICYCLOMINE 20 MG TABLET TAKE 1 TABLET BY MOUTH 4 TIME* DIPHENHYDRAMINE 25 MG CAPSULE Take 1 capsule by mouth every* GLYBURIDE 2.5 MG TABLET Take 1 tablet by mouth twice * LEVOTHYROXINE 175 MCG TABLET Take 1 tablet by mouth once d* METFORMIN 500 MG TABLET Take 2 tablets by mouth twice* POLYETHYLENE GLYCOL 3350 17 G* Take 1 Packet by mouth once d* Patient taking differently: Take 17 g by mouth as needed.* VITAMIN-FERROUS FUMA* Take 1 tablet by mouth once d* SIMVASTATIN 20 MG TABLET Take 1 tablet by mouth daily * WHEAT DEXTRIN 3 GRAM/3.8 GRAM* Take by mouth. BLOOD-GLUCOSE METER, DRUM-TYP* Use as directed 6 times daily DIAZEPAM 5 MG TABLET Take 1-2 tablets by mouth onc* PANTOPRAZOLE 40 MG TABLET,DEL* Take 1 tablet by mouth once d* Problem List As Of Date 07/17/2018 Noted Resolved Supervision of other high-risk [O09.8*INVALID FOR*01/28/2012 Obesity [E66.9] INVALID FOR* GERD (gastroesophageal reflux disease) [K21.9] INVALID FOR* Depression [F32.9] INVALID FOR* Hypothyroidism, postsurgical [E89.0] INVALID FOR* Type 2 diabetes mellitus with microalbuminuria,*INVALID FOR* Hyperprolactinemia [E22.1] INVALID FOR*08/16/2014 Stress incontinence [N39.3] INVALID FOR* Mixed hyperlipidemia [E78.2] INVALID FOR* History of thyroid cancer [Z85.850] INVALID FOR* Coccygeal arthritis [M48.9] INVALID FOR*08/28/2016 Obesity, Class I, BMI 30-34.9 [E66.9] INVALID FOR* Constipation [K59.00] INVALID FOR* Paresthesia of left arm [R20.2] INVALID FOR* Paresthesia of right arm [R20.2] INVALID FOR* Varicose veins of bilateral lower extremities w*INVALID FOR* Arterial thoracic outlet syndrome of left subcl*INVALID FOR* Other instructions from your clinician[facility], Vascular surgeon Prescriptions ordered this encounter Disp Refills Start End DIAZEPAM 5 MG TABLET 2 ta* 1 07/17/2018 07/17/2018 Class: Print RX Route: ORAL Sig: Take 1-2 tablets by mouth once in interventional radiology for 1 dose. Encounter Status:Closed by RANDALL MAGANA DO on 07/18/18 PROGRESS Observed: 05/29/2018 Status: COMPLETED Source: [place] 8:30 AM [facility] REPOSITORY [facility] ID: [id number] Author: Chencho Rees (Sales Training Representative) [place] Service: (none) Author Type: Nurse Practitioner Type: Progress Notes Filed: 05/29/2018 2:54 PM Note Text: HPI/CC: Juan Menchaca is a 37 year old female who presents to the office today for review of health conditions. Ms. Menchaca has past history of diabetes, hyperlipidemia and hypertension. DM: Since our last visit she denies excessive thirst or increased frequency of urination, chest pain or dyspnea , numbness, tingling or pain in extremities, new or unusual visual symptoms and low sugar/hypoglycemic reactions. Follows a diabetic diet some of the time. She is compliant with medication(s) and is tolerating med(s) without any side effects. She reports checking her glucose on a twice a day schedule with sugars in the fasting 160 and postprandial 220 range. Patient's last HgA1C was Hemoglobin A1C (%) Date Value 05/16/2018 7.4 11/01/2017 6.1 ) Last Ophthalmology exam was 2015 Last Podiatry exam was 2015 Complications of Diabetes include: hyperlipidemia Most Recent Immunizations Administered Date(s) Administered Influenza Seasonal Inj Quadrivalent Age 3+ 04/21/2017 Influenza Vaccine, Split-Non Spec 07/01/2013 Pneumovax 06/22/2012 Hyperlipidemia. Current therapy includes no current treatment. Stopped statin d/t TTC. Her most recent lipid panels are reviewed. Cholesterol, Total (mg/dL) Date Value 05/16/2018 240 HDL Cholesterol (mg/dL) Date Value 05/16/2018 30 LDL Cholesterol (mg/dL) Date Value 05/16/2018 143 Triglyceride (mg/dL) Date Value 05/16/2018 335 She watches her diet for sodium, low fat and low cholesterol some of the time. She does not check BP's generally. Juan denies regular aerobic exercise. REVIEW OF SYSTEMS: as above Reviewed relevant PMHx, PSHx, Social Hx, current medications and allergies. PHYSICAL EXAMINATION: BP 109/72 (BP Site: Right Arm, BP Position: Sitting, BP Cuff Size: Large Adult) Wt 100.7 kg (222 lb) BMI 38.11 kg/m? General appearance: Well appearing, alert, in no acute distress, well-hydrated, well nourished. Skin: Skin color, texture, turgor normal, no suspicious rashes or lesions Lungs: Lungs clear to auscultation. No wheezing, rhonchi, rales Heart: RRR without murmur, gallop, or rubs. No ectopy ASSESSMENT/PLAN: 1. Type 2 diabetes mellitus with microalbuminuria, without long-term current use of insulin ([facility]) - ICD9: 250.40, 791.0, ICD10: E11.29, R80.9 (primary diagnosis) worsening control - Increase glyburide (Micronase) - Blood glucose monitoring on a twice a day schedule - Follow up in 3 months, sooner should any other issues arise. - BP goal of <130/80 - LDL goal of <100 - GLYBURIDE 2.5 MG TABLET - COMP METABOLIC PANEL - HGB A1C - LIPID PANEL BASIC - f/u with endo 2. Need for vaccination - ICD9: V05.9, ICD10: Z23 - INFLUENZA VACCINE QUADRIVALENT AGE 3 YRS PLUS + IM 3. Mixed hyperlipidemia - ICD9: 272.2, ICD10: E78.2 - poor control and - to be determined upon return of lab results - Begin treatment with simvastatin (Zocor) 20 mg - Encouraged following a low fat, low cholesterol diet. - Discussed the benefits of regular aerobic exercise and weight loss. - SIMVASTATIN 20 MG TABLET- restart. Patient no longer TTC - LIPID PANEL BASIC 4. Hypothyroidism, postsurgical - ICD9: 244.0, ICD10: E89.0 - TSH BLD - T3 BLD - T4 FREE/FREE THYROX - f/u with endo for managament Chencho Canales APRN.BUSINESS INTELLIGENCE MANAGER PROGRESS Observed: 05/29/2018 Status: COMPLETED Source: [place] 8:25 AM [facility] REPOSITORY [facility] ID: [id number] Author: Waylon White [facility] Service: (none) Author Type: (none) Type: Progress Notes Filed: 05/29/2018 2:54 PM Note Text: 37 year old female here for INACTIVATED INFLUENZA VACCINE. 7245-3214 Season Patient is identified by name and date of : Yes [] CONTRAINDICATIONS color enhanced section Age less than 6 months? No Allergy to eggs, chicken, chicken feathers, or chicken dander? No Allergy to thimerosal (a preservative) or formaldehyde, gelatin? No History of severe reaction to any vaccine component or a previous dose of influenza vaccination? No History of Guillain-Peninsula Syndrome within 6 weeks after a previous influenza vaccine? No Patient is not moderately or severely ill? No Current temperature greater or equal to 100.4F? No History of Bone Marrow Transplant prior 6 months or solid organ transplant in the past 3 months ? No History of fainting after a prior injection or medical procedure? No- ? If patient has fainted in the past, the CDC recommends sitting or lying down for 15 minutes after the vaccination. [] VERIFICATION color enhanced section Was the answer Yes for any of the above contraindications? No contraindications present. Acceptable to proceed with vaccine. Patient/guardian agrees the above answers are true to the best of their knowledge? Yes Flu vaccine information sheet given? Yes See immunization activity in [facility] for details of immunizations adminstered today. Patient age: [age] year old For The 7860-7374 Flu Season 6-35 months old: Fluzone 0.25 ml - IM (Preservative Free) 3 years of age: Fluzone 0.5 ml - IM (Preservative Free) 3 years and older: Fluzone 0.5 ml- IM-(with Preservatives) 65+ years old: 2-49 years old Fluzone High-Dose 0.5 ml - IM (Preservative Free) FLUMIST- intranasal REMEMBER: If patient is less than 9 years of age and this is the first vaccine of Influenza to be received in any flu season, they should receive a second dose in one months time. FABI Observed: 05/29/2018 Status: COMPLETED Source: [place] 8:20 AM [facility] REPOSITORY Office Visit (FAMPWS) JUAN MENCHACA ([id number]) 1980 F Date Time Provider Department 05/29/18 8:20 AM CHENCHO CANALES ([facility] During your visit today, we recorded the following information about you: Temperature Pulse Respiration Blood pressure 98.6 degrees 93/minute 16/minute 109/72 Weight 100.7 kg Waylon White Cma 05/29/2018 2:54 PM Signed 37 year old female here for INACTIVATED INFLUENZA VACCINE. Season Patient is identified by name and date of : Yes [] CONTRAINDICATIONS color enhanced section Age less than 6 months? No Allergy to eggs, chicken, chicken feathers, or chicken dander? No Allergy to thimerosal (a preservative) or formaldehyde, gelatin? No History of severe reaction to any vaccine component or a previous dose of influenza vaccination? No History of Guillain-Peninsula Syndrome within 6 weeks after a previous influenza vaccine? No Patient is not moderately or severely ill? No Current temperature greater or equal to 100.4F? No History of Bone Marrow Transplant prior 6 months or solid organ transplant in the past 3 months ? No History of fainting after a prior injection or medical procedure? No- ? If patient has fainted in the past, the CDC recommends sitting or lying down for 15 minutes after the vaccination. [] VERIFICATION color enhanced section Was the answer Yes for any of the above contraindications? No contraindications present. Acceptable to proceed with vaccine. Patient/guardian agrees the above answers are true to the best of their knowledge? Yes Flu vaccine information sheet given? Yes See immunization activity in [facility] for details of immunizations adminstered today. Patient age: [age] year old For The Flu Season 6-35 months old: Fluzone 0.25 ml - IM (Preservative Free) 3 years of age: Fluzone 0.5 ml - IM (Preservative Free) 3 years and older: Fluzone 0.5 ml- IM-(with Preservatives) 65+ years old: 2-49 years old Fluzone High-Dose 0.5 ml - IM (Preservative Free) FLUMIST- intranasal REMEMBER: If patient is less than 9 years of age and this is the first vaccine of Influenza to be received in any flu season, they should receive a second dose in one months time. Chencho Canales APRN.CNP 05/29/2018 2:54 PM Signed HPI/CC: Juan Menchaca is a 37 year old female who presents to the office today for review of health conditions. Ms. Menchaca has past history of diabetes, hyperlipidemia and hypertension. DM: Since our last visit she denies excessive thirst or increased frequency of urination, chest pain or dyspnea , numbness, tingling or pain in extremities, new or unusual visual symptoms and low sugar/hypoglycemic reactions. Follows a diabetic diet some of the time. She is compliant with medication(s) and is tolerating med(s) without any side effects. She reports checking her glucose on a twice a day schedule with sugars in the fasting 160 and postprandial 220 range. Patient's last HgA1C was Hemoglobin A1C (%) Date Value 05/16/2018 7.4 11/01/2017 6.1 ) Last Ophthalmology exam was 2015 Last Podiatry exam was 2015 Complications of Diabetes include: hyperlipidemia Most Recent Immunizations Administered Date(s) Administered Influenza Seasonal Inj Quadrivalent Age 3+ 04/21/2017 Influenza Vaccine, Split-Non Spec 07/01/2013 Pneumovax 06/22/2012 Hyperlipidemia. Current therapy includes no current treatment. Stopped statin d/t TTC. Her most recent lipid panels are reviewed. Cholesterol, Total (mg/dL) Date Value 05/16/2018 240 HDL Cholesterol (mg/dL) Date Value 05/16/2018 30 LDL Cholesterol (mg/dL) Date Value 05/16/2018 143 Triglyceride (mg/dL) Date Value 05/16/2018 335 She watches her diet for sodium, low fat and low cholesterol some of the time. She does not check BP's generally. Juan denies regular aerobic exercise. REVIEW OF SYSTEMS: as above Reviewed relevant PMHx, PSHx, Social Hx, current medications and allergies. PHYSICAL EXAMINATION: BP 109/72 (BP Site: Right Arm, BP Position: Sitting, BP Cuff Size: Large Adult) Wt 100.7 kg (222 lb) BMI 38.11 kg/m? General appearance: Well appearing, alert, in no acute distress, well-hydrated, well nourished. Skin: Skin color, texture, turgor normal, no suspicious rashes or lesions Lungs: Lungs clear to auscultation. No wheezing, rhonchi, rales Heart: RRR without murmur, gallop, or rubs. No ectopy ASSESSMENT/PLAN: 1. Type 2 diabetes mellitus with microalbuminuria, without long-term current use of insulin (HCC) - ICD9: 250.40, 791.0, ICD10: E11.29, R80.9 (primary diagnosis) worsening control - Increase glyburide (Micronase) - Blood glucose monitoring on a twice a day schedule - Follow up in 3 months, sooner should any other issues arise. - BP goal of <130/80 - LDL goal of <100 - GLYBURIDE 2.5 MG TABLET - COMP METABOLIC PANEL - HGB A1C - LIPID PANEL BASIC - f/u with endo 2. Need for vaccination - ICD9: V05.9, ICD10: Z23 - INFLUENZA VACCINE QUADRIVALENT AGE 3 YRS PLUS + IM 3. Mixed hyperlipidemia - ICD9: 272.2, ICD10: E78.2 - poor control and - to be determined upon return of lab results - Begin treatment with simvastatin (Zocor) 20 mg - Encouraged following a low fat, low cholesterol diet. - Discussed the benefits of regular aerobic exercise and weight loss. - SIMVASTATIN 20 MG TABLET- restart. Patient no longer TTC - LIPID PANEL BASIC 4. Hypothyroidism, postsurgical - ICD9: 244.0, ICD10: E89.0 - TSH BLD - T3 BLD - T4 FREE/FREE THYROX - f/u with endo for managament Chencho Canales APRN.BUSINESS INTELLIGENCE MANAGER Referring Provider: SELF [200] Allergies As of Date: 05/29/2018 Noted Allergy Reaction ERYTHROMYCIN 01/02/2009 4 - Hives 7 - Swelling Date Reviewed: 05/29/2018 Reviewed by: Waylon White Cma - Fully Assessed Reason for Visit: Recheck [92] Cmt: Review of labs Imm/Inj [58] Cmt: Flu Vaccine Reason For Visit History Recorded Primary Visit Diagnosis:Type 2 diabetes mellitus with microalbuminuria, without long-term current use of insulin (HCC) [E11.29, R80.9] Other Visit Diagnoses:Need for vaccination [Z23] Mixed hyperlipidemia [E78.2] Hypothyroidism, postsurgical [E89.0] Order(s):glyBURIDE (DIABETA) 2.5 mg tabletTake 1 tablet by mouth twice daily with meals.Disp: 90 tabletRfl: 0 simvastatin (ZOCOR) 20 mg tabletTake 1 tablet by mouth daily at bedtime.Disp: 90 tabletRfl: 0 COMP METABOLIC PANEL [SQCMP] Order #: [id number] FUTURE HGB A1C [NICGT9Q] Order #: [id number] FUTURE LIPID PANEL BASIC [SQLIPB] Order #: [id number] FUTURE TSH BLD [SQTSH] Order #: [id number] FUTURE T3 BLD [SQT3] Order #: [id number] FUTURE T4 FREE/FREE THYROX [SQFT4] Order #: [id number] FUTURE INFLUENZA VACCINE QUADRIVALENT AGE 3 YRS PLUS + IM [[id number]] Order #: [id number] Prescriptions as of 05/29/2018 Sig: GLYBURIDE 2.5 MG TABLET Take 1 tablet by mouth twice * CYCLOBENZAPRINE 10 MG TABLET TAKE 1 TABLET BY MOUTH THREE * LEVOTHYROXINE 175 MCG TABLET TAKE 1 TABLET BY MOUTH EVERY * WHEAT DEXTRIN 3 GRAM/3.8 GRAM* Take by mouth. BLOOD SUGAR DIAGNOSTIC STRIPS TEST BLOOD SUGARS 3 TIMES OSORIO* POLYETHYLENE GLYCOL 3350 17 G* Take 1 Packet by mouth once d* Patient taking differently: Take 17 g by mouth as needed.* METFORMIN 500 MG TABLET Take 2 tablets by mouth twice* PANTOPRAZOLE 40 MG TABLET,DEL* Take 1 tablet by mouth once d* DIPHENHYDRAMINE 25 MG CAPSULE Take 1 capsule by mouth every* VITAMIN-FERROUS FUMA* Take 1 tablet by mouth once d* DICYCLOMINE 20 MG TABLET TAKE 1 TABLET BY MOUTH 4 TIME* BETAMETHASONE DIPROPIONATE 0.* Apply 1 application to affect* SIMVASTATIN 20 MG TABLET Take 1 tablet by mouth daily * BLOOD-GLUCOSE METER, DRUM-TYP* Use as directed 6 times daily Problem List As Of Date 05/29/2018 Noted Resolved Supervision of other high-risk [O09.8*INVALID FOR*01/28/2012 Obesity [E66.9] INVALID FOR* GERD (gastroesophageal reflux disease) [K21.9] INVALID FOR* Depression [F32.9] INVALID FOR* Hypothyroidism, postsurgical [E89.0] INVALID FOR* Type 2 diabetes mellitus with microalbuminuria,*INVALID FOR* Hyperprolactinemia [E22.1] INVALID FOR*08/16/2014 Stress incontinence [N39.3] INVALID FOR* Mixed hyperlipidemia [E78.2] INVALID FOR* History of thyroid cancer [Z85.850] INVALID FOR* Coccygeal arthritis [M48.9] INVALID FOR*08/28/2016 Obesity, Class I, BMI 30-34.9 [E66.9] INVALID FOR* Constipation [K59.00] INVALID FOR* Paresthesia of left arm [R20.2] INVALID FOR* Paresthesia of right arm [R20.2] INVALID FOR* Varicose veins of bilateral lower extremities w*INVALID FOR* Arterial thoracic outlet syndrome of left subcl*INVALID FOR* Prescriptions ordered this encounter Disp Refills Start End GLYBURIDE 2.5 MG TABLET 90 t* 0 05/29/2018 Route: ORAL Sig: Take 1 tablet by mouth twice daily with meals. SIMVASTATIN 20 MG TABLET 90 t* 0 05/29/2018 Route: ORAL Sig: Take 1 tablet by mouth daily at bedtime. Medications Discontinued During This Encounter glyBURIDE (MICRONASE, DIABETA) 1.25 * 60 t* 11 11/05/2017 05/29/2018 Route: ORAL Sig: Take 1 tablet by mouth twice daily with meals. Disc: Reason for discontinue is not on file. Encounter Status:Closed by WAYLON WHITE CMA on 05/29/18 FREE T4 Collected: 05/16/2018 Status: F Source: [place] 9:31 AM [facility] REPOSITORY TYPE CODE TESTS RESULT OUT OF RANGE REFERENCE UNITS LAB FT4 0.9-1.7 ng/dL High Free T4 1.8 Performed By: #### FT4, TSH, TG #### [facility] [address] [address] TSH Collected: 05/16/2018 Status: F Source: [place] 9:31 AM [facility] REPOSITORY TYPE CODE TESTS RESULT OUT OF RANGE REFERENCE UNITS LAB TSH 0.400-5.500 uU/mL TSH 0.701 Result Comment: If the patient is , TSH reference range varies by gestational period: First Trimester 0.100-2.500 uU/mL Second Trimester 0.200-3.000 uU/mL Third Trimester 0.300-3.000 uU/mL References: 1. Garcia L, Stanley M, Miguel Angel EK, et al. Management of Thyroid Dysfunction during and : An Endocrine Society Clinical Practice Guideline. J Clin Endocrinol Metab, 2012:97:3076-5825. 2. Morgan MARTINEZ. Overview of thyroid disease in . UpToDate. 2016. Accessed on January 12, 2016. Performed By: #### FT4, TSH, TG #### [facility] [address] [place], [place] [address] THYROGLOBULIN Collected: 05/16/2018 Status: F Source: [place] 9:31 AM [facility] REPOSITORY TYPE CODE TESTS RESULT OUT OF REFERENCE UNITS RANGE LAB THYG 1.6-59.9 ng/mL Thyroglobulin Low <0.2 Result Comment: Test analyzed by the Siemens Immulite method LAB TGABS <14.4 IU/mL TG Antibody Screen 2.2 Performed By: #### FT4, TSH, TG #### [place] [address] [place], [place] [address] COMP METABOLIC PANEL Collected: 05/16/2018 Status: F Source: [place] 9:31 AM [facility] REPOSITORY TYPE CODE TESTS RESULT OUT OF REFERENCE UNITS RANGE LAB TP 6.3-8.0 g/dL Protein, Total 7.6 LAB ALB 3.9-4.9 g/dL Albumin 4.1 LAB CA 8.5-10.2 mg/dL Calcium, Total 9.5 LAB TBIL 0.2-1.3 mg/dL Bilirubin, Total 0.3 LAB ALKP 34-123 U/L Alkaline Phosphatase 63 LAB AST 13-35 U/L AST 29 LAB GLU 74-99 mg/dL Glucose High 168 Result Comment: The [place] Diabetes Association (ADA) provides guidance for cutoff values for fasting glucose and random glucose. The ADA defines fasting as no caloric intake for at least 8 hours. Fas ting plasma glucose results between 100 to 125 mg/dL indicate increased risk for diabetes (prediabetes). Fasting plasma glucose results greater than or equal to 126 mg/dL meet the criteria for diagnosis of diabetes. In the absence of unequivocal hyperglycemia, results should be confirmed by repeat testing. In a patient with classic symptoms of hyperglycemia or hyperglycemic crisis, random plasma glucose results greater than or equal to 200 mg/dL meet the criteria for diagnosis of diabetes. Reference: Standards of Medical Care in Diabetes 2016, [place] Diabetes Association. Diabetes Care. 2016.39(Suppl 1). LAB BUN 7-21 mg/dL BUN 10 LAB CRET 0.58-0.96 mg/dL Creatinine 0.87 LAB NA 136-144 mmol/L Sodium 141 LAB K 3.7-5.1 mmol/L Potassium 4.2 LAB CL 97-105 mmol/L Chloride 99 LAB CO2 22-30 mmol/L CO2 26 LAB AGAP 9-18 mmol/L Anion Gap 16 LAB ALT 7-38 U/L ALT 21 LAB GFRAA eGFR- Amer. >60 LAB GFRNAA . eGFR-All Other Races >60 Result Comment: eGFR (Estimated GFR) Units of measure: mL/min/1.73 meters squared eGFR is derived from the reexpressed MDRD Study equation using the following parameters: serum creatinine, age, gender and race. The creatinine assay has been calibrated to be traceable to IDMS. An eGFR <60 mL/min/1.73m2 for >3 months is consistent with chronic kidney disease. Refer to KDOQI guidelines for clinical interpretation. In patients with unstable renal function, e.g. those with acute kidney injury, the eGFR may not accurately reflect actual GFR. Performed By: #### CMP, LIPB, HBA1C #### [facility] [address] [place] [id number] LIPID PANEL, BASIC Collected: 05/16/2018 Status: F Source: [place] 9:31 AM [facility] REPOSITORY TYPE CODE TESTS RESULT OUT OF REFERENCE UNITS RANGE LAB CHOL <200 mg/dL Cholesterol High 240 Result Comment: <200 mg/dL, Desirable 200-239 mg/dL, Borderline high >239 mg/dL, High LAB TRIGLY <150 mg/dL Triglyceride High 335 Result Comment: <150 mg/dL, Normal 150-199 mg/dL, Borderline high 200-499 mg/dL, High >499 mg/dL, Very high LAB HDL >39 mg/dL HDL-Cholesterol Low 30 Result Comment: 40-59 mg/dL, Acceptable >59 mg/dL, High: Negative risk factor for coronary heart disease <40 mg/dL, Low: Positive risk factor for coronary heart disease LAB LDL <100 mg/dL LDL-Cholesterol High 143 Result Comment: <100 mg/dL, Optimal 100-129 mg/dL, Near optimal/above optimal 130-159 mg/dL, Borderline high 160-189 mg/dL, High >189 mg/dL, Very high Secondary prevention optimal LDL Cholesterol levels are recommended to be < 70 mg/dL LAB NONHDL <130 mg/dL Non HDL High Cholesterol 210 Result Comment: <130 mg/dL, Optimal 130-159 mg/dL, Near optimal/above optimal 160-189 mg/dL, Borderline high 190-219 mg/dL, High >219 mg/dL, Very high Secondary prevention optimal non HDL Cholesterol levels are recommended to be < 100 mg/dL LAB FT hrs Fasting Time 10 LAB VLDL <30 mg/dL High VLDL Cholesterol 67 LAB TCHDL <5.10 High TC:HDL Ratio 8.00 LAB LDLHDL <2.54 High LDL:HDL Ratio 4.77 Result Comment: Reference: 1. National Cholesterol Education Program ATP III Guideline At-A-Glance Quick Desk Reference: National Heart, Lung, and Blood [place]. National Institutes of Health. 2001: NIH Publication No. 01-3305. 2. An International Atherosclerosis Society position paper: global recommendations for the management of dyslipidemia: executive summary, Atherosclerosis. 2014: 232(2):410-413. Performed By: #### CMP, LIPB, HBA1C #### [facility] [address] [place], [place] [address] HEMOGLOBIN A1C Collected: 05/16/2018 Status: F Source: [place] 9:31 AM [facility] REPOSITORY TYPE CODE TESTS RESULT OUT OF REFERENCE UNITS RANGE LAB HGBA1C 4.3-5.6 % High Hemoglobin A1c 7.4 LAB HBA0 mg/dL Est. Average Glucose 166 Result Comment: eAG: (Estimated average glucose) is a calculated value from HgbA1c and is school admissions representative of the average blood glucose level in the last 2-3 month period. Performed By: #### CMP, LIPB, HBA1C #### [facility] [address] [place], [place] [address] PROGRESS Observed: 02/13/2018 Status: COMPLETED Source: [place] 1:22 PM [facility] REPOSITORY [facility]NO ID: [id number] Author: [place] Production Team Member Service: (none) Author Type: (none) Type: Progress Notes Filed: 02/13/2018 1:22 PM Note Text: Patient returned call and r/s appointment. PROGRESS Observed: 02/13/2018 Status: COMPLETED Source: [place] 8:50 AM [facility] REPOSITORY [facility] ID: [id number] Author: [place] Production Team Member Service: (none) Author Type: (none) Type: Progress Notes Filed: 02/13/2018 1:12 PM Note Text: Please file orders. Left detailed message for patient to return call #[phone] PROGRESS Observed: 02/13/2018 Status: COMPLETED Source: [place] 8:43 AM [facility] REPOSITORY [facility] ID: [id number] Author: [place] Production Team Member Service: (none) Author Type: (none) Type: Progress Notes Filed: 02/13/2018 1:12 PM Note Text: PHMA TEAMLET DOCUMENTATION Provider Action/FYI: *Please file labs PSR Action/FYI: *R/S appointment pt. No showed on 02/04/18 *Due for DM retinal exam *Due for DM Foot Exam Teamlet has identified patient by name and date of . Team: Chencho Chinchilla Myself ? Last Office Visit:Visit date not found ? Next Office Visit: Visit date not found ? Last BP/Labs: Blood Pressure: Last 3 Encounter BP Readings: Date: BP: 12/12/2017 116/78 11/05/2017 115/72 11/01/2017 108/76 Lipids: Cholesterol, Total (mg/dL) Date Value 11/01/2017 157 05/14/2017 156 HDL Cholesterol (mg/dL) Date Value 11/01/2017 28 05/14/2017 27 LDL Cholesterol (mg/dL) Date Value 11/01/2017 93 05/14/2017 86 Triglyceride (mg/dL) Date Value 11/01/2017 181 05/14/2017 215 HGB A1C: Lab Results Component Value Date HBA1C 6.1 11/01/2017 HBA1C 7.1 05/14/2017 HBA1C 7.3 07/04/2016 TSH: TSH (uU/mL) Date Value 11/01/2017 0.135 05/14/2017 0.674 ) Care Gap: DM - Needs dilated eye exam - HM overdue Hyperlipidemia Thyroid Plan: ? Confirm PCP / Status ? Type of appointment needed: Follow-up DM next available with Provider PCP or FLOOR STEWARD/STEWARDESS ? Consultation Appointments: N/S Labs, HM and Immunization: Health Maintenance Due: DTAP,TDAP,TD(1 - Tdap) due on 1997 DILATED RETINAL EXAM due on 10/29/2016 DIABETIC FOOT EXAM due on 08/28/2017 [place] Cma CNPTOUTREACH Observed: 02/13/2018 Status: COMPLETED Source: [place] 12:00 AM [facility] REPOSITORY Patient Outreach (INTMWS) JUAN MENCHACA ([id number]) 1980 F Date Time Provider Department 02/13/18 [place] ([facility]) INTMWS During your visit today, we recorded the following information about you: [place] Cma 02/13/2018 1:12 PM Signed PHMA TEAMLET DOCUMENTATION Provider Action/FYI: *Please file labs PSR Action/FYI: *R/S appointment pt. No showed on 02/04/18 *Due for DM retinal exam *Due for DM Foot Exam Teamlet has identified patient by name and date of . Team: Chencho Chinchilla Myself ? Last Office Visit:Visit date not found ? Next Office Visit: Visit date not found ? Last BP/Labs: Blood Pressure: Last 3 Encounter BP Readings: Date: BP: 12/12/2017 116/78 11/05/2017 115/72 11/01/2017 108/76 Lipids: Cholesterol, Total (mg/dL) Date Value 11/01/2017 157 05/14/2017 156 HDL Cholesterol (mg/dL) Date Value 11/01/2017 28 05/14/2017 27 LDL Cholesterol (mg/dL) Date Value 11/01/2017 93 05/14/2017 86 Triglyceride (mg/dL) Date Value 11/01/2017 181 05/14/2017 215 HGB A1C: Lab Results Component Value Date HBA1C 6.1 11/01/2017 HBA1C 7.1 05/14/2017 HBA1C 7.3 07/04/2016 TSH: TSH (uU/mL) Date Value 11/01/2017 0.135 05/14/2017 0.674 ) Care Gap: DM - Needs dilated eye exam - HM overdue Hyperlipidemia Thyroid Plan: ? Confirm PCP / Status ? Type of appointment needed: Follow-up DM next available with Provider PCP or FLOOR STEWARD/STEWARDESS ? Consultation Appointments: N/S Labs, HM and Immunization: Health Maintenance Due: DTAP,TDAP,TD(1 - Tdap) due on 1997 DILATED RETINAL EXAM due on 10/29/2016 DIABETIC FOOT EXAM due on 08/28/2017 [facility] 02/13/2018 1:12 PM Signed Please file orders. Left detailed message for patient to return call #[phone] [facility] [email or web address] [facility] 02/13/2018 1:22 PM Signed Patient returned call and r/s appointment. Allergies As of Date: 02/13/2018 Noted Allergy Reaction ERYTHROMYCIN 01/02/2009 4 - Hives 7 - Swelling Date Reviewed: 12/12/2017 Reviewed by: Oxana (Ariana) ARIANA Mitchell - Fully Assessed Reason for Visit: PHMA/Care Gap Outreach [[id number]] Primary Visit Diagnosis:Type 2 diabetes mellitus with microalbuminuria, without long-term current use of insulin (HCC) [E11.29, R80.9] Other Visit Diagnosis:Mixed hyperlipidemia [E78.2] Order(s):HGB A1C [CFCUB7P] Order #: [id number] FUTURE COMP METABOLIC PANEL [SQCMP] Order #: [id number] FUTURE LIPID PANEL BASIC [SQLIPB] Order #: [id number] FUTURE Prescriptions as of 02/13/2018 Sig: LEVOTHYROXINE 175 MCG TABLET TAKE 1 TABLET BY MOUTH EVERY * WHEAT DEXTRIN 3 GRAM/3.8 GRAM* Take by mouth. BLOOD SUGAR DIAGNOSTIC STRIPS TEST BLOOD SUGARS 3 TIMES OSORIO* POLYETHYLENE GLYCOL 3350 17 G* Take 1 Packet by mouth once d* Patient taking differently: Take 17 g by mouth as needed.* CYCLOBENZAPRINE 10 MG TABLET TAKE 1 TABLET BY MOUTH THREE * GLYBURIDE 1.25 MG TABLET Take 1 tablet by mouth twice * METFORMIN 500 MG TABLET Take 2 tablets by mouth twice* PANTOPRAZOLE 40 MG TABLET,DEL* Take 1 tablet by mouth once d* DIPHENHYDRAMINE 25 MG CAPSULE Take 1 capsule by mouth every* VITAMIN-FERROUS FUMA* Take 1 tablet by mouth once d* DICYCLOMINE 20 MG TABLET TAKE 1 TABLET BY MOUTH 4 TIME* BETAMETHASONE DIPROPIONATE 0.* Apply 1 application to affect* BLOOD-GLUCOSE METER, DRUM-TYP* Use as directed 6 times daily Problem List As Of Date 02/13/2018 Noted Resolved Supervision of other high-risk [O09.8*INVALID FOR*01/28/2012 Obesity [E66.9] INVALID FOR* GERD (gastroesophageal reflux disease) [K21.9] INVALID FOR* Depression [F32.9] INVALID FOR* Hypothyroidism, postsurgical [E89.0] INVALID FOR* Type 2 diabetes mellitus with microalbuminuria,*INVALID FOR* Hyperprolactinemia [E22.1] INVALID FOR*08/16/2014 Stress incontinence [N39.3] INVALID FOR* Mixed hyperlipidemia [E78.2] INVALID FOR* History of thyroid cancer [Z85.850] INVALID FOR* Coccygeal arthritis [M48.9] INVALID FOR*08/28/2016 Obesity, Class I, BMI 30-34.9 [E66.9] INVALID FOR* Constipation [K59.00] INVALID FOR* Paresthesia of left arm [R20.2] INVALID FOR* Paresthesia of right arm [R20.2] INVALID FOR* Varicose veins of bilateral lower extremities w*INVALID FOR* Arterial thoracic outlet syndrome of left subcl*INVALID FOR* Encounter Status:Closed by HALEY PARK CMA on 02/13/18 PROGRESS Observed: 12/12/2017 Status: COMPLETED Source: [place] 1:32 PM [facility] REPOSITORY HNO ID: [id number] Author: Yamilex Ugalde MD Service: (none) Author Type: Physician Type: Progress Notes Filed: 12/31/2017 4:02 PM Note Text: VASCULAR SURGERY INITIAL CONSULT SERVICE DATE: 12/12/2017 SERVICE TIME: 1:32 PM PRIMARY CARE PHYSICIAN: Randall Magana DO REFERRING PROVIDER: Randall Magana DO [address] [facility] [address] Consult requested for an opinion regarding the evaluation and treatment of the above. My final impression and recommendations will be communicated back to the requesting physician by way of the shared medical record or letter via US mail. CHIEF COMPLAINT/HISTORY OF PRESENT ILLNESS: Chief Complaint: TOS History of Present Illness: Juan Menchaca is a 37 year old female presenting with symptoms that began approximately 8 years ago, and swing broke in the air, her arms were holding to the chains when fell to the ground Patient states she broke her coccyx. Patient reports since this incident she had pain in her left side of neck down shoulder, arm, and in her hand. Patient states she get cramps in her hands, left more than right. Patient states she gets symptoms on her right side, but the left is worse. Patient states approximately one year later she lost about 100 pounds then pain worsened in her arms, and lower back. She states symptoms worsens at night when she tries to sleep. She denies chest wall pain. Patient is left hand dominant. Patient reports unable to brush her hair with her left hand. Patient states she drops pasta noodles on the floor due to arm weakness, they just give out. As well, doing laundry is difficult. 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 Patient states she had physical therapy for her shoulder and arm pain. Patient states she has seen pain management through [facility]. Patient states she has trialed steroid injections around 2009 in the left shoulder. Patient history of prominent variscosities which causes her legs to fatigue easily. Patient states they did not really help as she still could not sleep on her left side. She reports left arm, and L hand swelling with numbness. Patient denies history of strokes, heart attack, DVT or PE. PAST MEDICAL/SURGICAL/FAMILY/SOCIAL HISTORY PAST MEDICAL HISTORY Diagnosis Date - Abnormal glandular Papanicolaou smear of cervix 2004 Abn. Pap smear (cervix) - Acute anal fissure now closed - Allergic rhinitis - Asthma CHILDHOOD ASTHMA - Coccygeal arthritis seen on xray - Diabetes mellitus 01/2010 NIDDM - Dyspareunia 07/24/2013 - GERD (gastroesophageal reflux disease) - Hidradenitis suppurativa 01/28/2012 - Hypertension - PCOS (polycystic ovarian syndrome) - Right shoulder pain 12/11/2012 - Rosacea - Thyroid cancer (HCC) 10/02/2012 s/p thyroidectomy, Dr. Camacho PAST SURGICAL HISTORY Procedure Laterality Date - COLONOSCOP W/ OR W/O BRSH SPEC 09/07/2014 Colonoscopy - EGD W/O OR W/BRUSH/WASH 11/11/13 EGD - FNA WITH IMAGING 08/19/12 U/S FNA left thyroid nodule - LAPAROSCOPY DIAGNOSTIC 2011 ectopic salpingectomy, L ovarian cystectomies - LEEP PROCEDURE (EXECUTIVE DIRECTOR OF NURSING DEPT)_*FL 1993 [id number] - OTHER 08/03/2014 left axillary skin resection hidratinitis - THYROIDECTOMY 10-02-12 TOTAL - cancerous. 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 Disp: Rfl: levothyroxine (SYNTHROID) 175 mcg tablet One tablet Friday thru Friday + 0.5 tablet on Friday Disp: 90 tablet Rfl: 1 blood sugar diagnostic (FREESTYLE LITE STRIPS) test strip TEST BLOOD SUGARS 3 TIMES DAILY Disp: 300 Strip Rfl: 1 polyethylene glycol 3350 (MIRALAX, GLYCOLAX) 17 gram packet Take 1 Packet by mouth once daily. (Patient taking differently: Take 17 g by mouth as needed. ) Disp: 100 Packet Rfl: 3 cyclobenzaprine (FLEXERIL) 10 mg tablet TAKE 1 TABLET BY MOUTH THREE TIMES DAILY NEEDED. Disp: 270 tablet Rfl: 0 glyBURIDE (MICRONASE, DIABETA) 1.25 mg tablet Take 1 tablet by mouth twice daily with meals. Disp: 60 tablet Rfl: 11 metFORMIN (GLUCOPHAGE) 500 mg tablet Take 2 tablets by mouth twice daily with meals. Disp: 360 tablet Rfl: [address] (PROTONIX) 40 mg tablet Take 1 tablet by mouth once daily. Disp: 30 tablet Rfl: 11 diphenhydrAMINE (BENADRYL) 25 mg capsule Take 1 capsule by mouth every 6 hours as needed for Itching/Rash. Disp: 20 capsule Rfl: 0 multivitamin ( VITAMIN WITH MINERALS) 28 mg iron- 800 mcg tab Take 1 tablet by mouth once daily. Disp: 90 tablet Rfl: 3 dicyclomine (BENTYL) 20 mg tablet TAKE 1 TABLET BY MOUTH 4 TIMES A DAY NEEDED Disp: 120 tablet Rfl: 6 betamethasone dipropionate (DIPROSONE) 0.05 % cream Apply 1 application to affected area twice daily as needed. Disp: 60 g Rfl: 1 Blood-Glucose Meter, Drum-type (ACCU-CHEK COMPACT PLUS CARE) kit Use as directed 6 times daily Disp: 1 Kit Rfl: 0 No current facility-administered medications for this visit. ALLERGIES Allergen Reactions - Erythromycin Hives, Swelling REVIEW OF SYSTEMS Constitutional: No weight loss, malaise or fevers. HEENT: Negative for frequent or significant headaches Respiratory: Negative for cough, wheezing, or shortness of breath Cardiovascular: Negative for chest pain, leg swelling or palpitations Gatrointestinal: Positive for constipation Genitourinary: No history of dysuria, frequency, or incontinence Musculoskeletal: Positive for back pain, joint pain and bilateral shoulder and arm pain Endocrine: Positive for cold intolerance to hands and feet Hematology/Lymphatic: Negative for prolonged bleeding, bruising easily or swollen nodes Neurologic: Positive for headaches and numbness or tingling of hands Integumentary: Negative for lesions, rash, and itching. PHYSICAL EXAM VITALS: BP 116/78 Pulse 102 Temp (Src) 98.5 (Temporal Artery) Resp 15 Ht 5' 4 (1.63m) Wt 213 lb (96.6kg) SpO2 100% BMI 36.54 kg/(m2). General: Alert and oriented Integumentary: Normal color, no rash, no lesions. HEENT: EOM, pupils equal, round and reactive. Cardiovascular: No JVD., Pulse regular. Lungs: nonlabored breathing Abdomen: Soft, non-tender, no rigidity. Extremities: No deformity, no edema or tenderness, no joint swelling or clubbing. Neurological: Normal cognition and motor skills. Vascular: Pulses: Brachial Pulse Right: Normal Left: Normal Radial Pulse Right: Normal Left: Normal Femoral Pulse Right: Normal Left: Normal Popliteal Pulse Right: Normal Left: Normal Posterior Tibial Right: Normal Left: Normal Dorsalis Pedal Right: Normal Left: Normal ASSESSMENT 37 yo female with b/l UE arm pain that began occurring after she fell out of a swing holding onto the chains on the way to falling to the ground causing, what sounds to be, trauma to the shoulder girdle, cervical spine, or brachial plexus. SHe is here for evaluation for TOS. Diagnostic tests reviewed for today's visit: PLAN/RECOMMENDATIONS TOS specific PT consult Neurology consult for EMG if she has not had that before. Follow up in 3 months. SIGNATURE: Yamilex Ugalde MD, MD PATIENT NAME: Juan Menchaca DATE: December 12, 2017 TIME: 1:32 PM CNOV Observed: 12/12/2017 Status: COMPLETED Source: [place] 1:00 PM [facility] REPOSITORY Office Visit (OBDULIO) JUAN MENCHACA ([id number]) 1980 F Date Time Provider Department 12/12/17 1:00 PM YAMILEX UGALDE During your visit today, we recorded the following information about you: Temperature Pulse Respiration Blood pressure 98.5 degrees 102/minute 15/minute 116/78 Weight Height 96.6 kg 1.626 m Yamilex Ugalde MD, MD 12/31/2017 4:02 PM Signed VASCULAR SURGERY INITIAL CONSULT SERVICE DATE: 12/12/2017 SERVICE TIME: 1:32 PM PRIMARY CARE PHYSICIAN: Randall Magaan DO REFERRING PROVIDER: Randall Magana DO [address] [facility] [place] [address] Consult requested for an opinion regarding the evaluation and treatment of the above. My final impression and recommendations will be communicated back to the requesting physician by way of the shared medical record or letter via US mail. CHIEF COMPLAINT/HISTORY OF PRESENT ILLNESS: Chief Complaint: TOS History of Present Illness: Juan Menchaca is a 37 year old female presenting with symptoms that began approximately 8 years ago, and swing broke in the air, her arms were holding to the chains when fell to the ground Patient states she broke her coccyx. Patient reports since this incident she had pain in her left side of neck down shoulder, arm, and in her hand. Patient states she get cramps in her hands, left more than right. Patient states she gets symptoms on her right side, but the left is worse. Patient states approximately one year later she lost about 100 pounds then pain worsened in her arms, and lower back. She states symptoms worsens at night when she tries to sleep. She denies chest wall pain. Patient is left hand dominant. Patient reports unable to brush her hair with her left hand. Patient states she drops pasta noodles on the floor due to arm weakness, they just give out. As well, doing laundry is difficult. 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 Patient states she had physical therapy for her shoulder and arm pain. Patient states she has seen pain management through [facility]. Patient states she has trialed steroid injections around 2009 in the left shoulder. Patient history of prominent variscosities which causes her legs to fatigue easily. Patient states they did not really help as she still could not sleep on her left side. She reports left arm, and L hand swelling with numbness. Patient denies history of strokes, heart attack, DVT or PE. PAST MEDICAL/SURGICAL/FAMILY/SOCIAL HISTORY PAST MEDICAL HISTORY Diagnosis Date - Abnormal glandular Papanicolaou smear of cervix 2004 Abn. Pap smear (cervix) - Acute anal fissure now closed - Allergic rhinitis - Asthma CHILDHOOD ASTHMA - Coccygeal arthritis seen on xray - Diabetes mellitus 01/2010 NIDDM - Dyspareunia 07/24/2013 - GERD (gastroesophageal reflux disease) - Hidradenitis suppurativa 01/28/2012 - Hypertension - PCOS (polycystic ovarian syndrome) - Right shoulder pain 12/11/2012 - Rosacea - Thyroid cancer (HCC) 10/02/2012 s/p thyroidectomy, Dr. Camacho PAST SURGICAL HISTORY Procedure Laterality Date - COLONOSCOP W/ OR W/O BRSH SPEC 09/07/2014 Colonoscopy - EGD W/O OR W/BRUSH/WASH 11/11/13 EGD - FNA WITH IMAGING 08/19/12 U/S FNA left thyroid nodule - LAPAROSCOPY DIAGNOSTIC 2011 ectopic salpingectomy, L ovarian cystectomies - LEEP PROCEDURE (EXECUTIVE DIRECTOR OF NURSING DEPT)_*FL 1993 [id number] - OTHER 08/03/2014 left axillary skin resection hidratinitis - THYROIDECTOMY 10-02-12 TOTAL - cancerous. 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 Disp: Rfl: levothyroxine (SYNTHROID) 175 mcg tablet One tablet Friday thru Friday + 0.5 tablet on Friday Disp: 90 tablet Rfl: 1 blood sugar diagnostic (FREESTYLE LITE STRIPS) test strip TEST BLOOD SUGARS 3 TIMES DAILY Disp: 300 Strip Rfl: 1 polyethylene glycol 3350 (MIRALAX, GLYCOLAX) 17 gram packet Take 1 Packet by mouth once daily. (Patient taking differently: Take 17 g by mouth as needed. ) Disp: 100 Packet Rfl: 3 cyclobenzaprine (FLEXERIL) 10 mg tablet TAKE 1 TABLET BY MOUTH THREE TIMES DAILY NEEDED. Disp: 270 tablet Rfl: 0 glyBURIDE (MICRONASE, DIABETA) 1.25 mg tablet Take 1 tablet by mouth twice daily with meals. Disp: 60 tablet Rfl: 11 metFORMIN (GLUCOPHAGE) 500 mg tablet Take 2 tablets by mouth twice daily with meals. Disp: 360 tablet Rfl: [address] (PROTONIX) 40 mg tablet Take 1 tablet by mouth once daily. Disp: 30 tablet Rfl: 11 diphenhydrAMINE (BENADRYL) 25 mg capsule Take 1 capsule by mouth every 6 hours as needed for Itching/Rash. Disp: 20 capsule Rfl: 0 multivitamin ( VITAMIN WITH MINERALS) 28 mg iron- 800 mcg tab Take 1 tablet by mouth once daily. Disp: 90 tablet Rfl: 3 dicyclomine (BENTYL) 20 mg tablet TAKE 1 TABLET BY MOUTH 4 TIMES A DAY NEEDED Disp: 120 tablet Rfl: 6 betamethasone dipropionate (DIPROSONE) 0.05 % cream Apply 1 application to affected area twice daily as needed. Disp: 60 g Rfl: 1 Blood-Glucose Meter, Drum-type (ACCU-CHEK COMPACT PLUS CARE) kit Use as directed 6 times daily Disp: 1 Kit Rfl: 0 No current facility-administered medications for this visit. ALLERGIES Allergen Reactions - Erythromycin Hives, Swelling REVIEW OF SYSTEMS Constitutional: No weight loss, malaise or fevers. HEENT: Negative for frequent or significant headaches Respiratory: Negative for cough, wheezing, or shortness of breath Cardiovascular: Negative for chest pain, leg swelling or palpitations Gatrointestinal: Positive for constipation Genitourinary: No history of dysuria, frequency, or incontinence Musculoskeletal: Positive for back pain, joint pain and bilateral shoulder and arm pain Endocrine: Positive for cold intolerance to hands and feet Hematology/Lymphatic: Negative for prolonged bleeding, bruising easily or swollen nodes Neurologic: Positive for headaches and numbness or tingling of hands Integumentary: Negative for lesions, rash, and itching. PHYSICAL EXAM VITALS: BP 116/78 Pulse 102 Temp (Src) 98.5 (Temporal Artery) Resp 15 Ht 5' 4 (1.63m) Wt 213 lb (96.6kg) SpO2 100% BMI 36.54 kg/(m2). General: Alert and oriented Integumentary: Normal color, no rash, no lesions. HEENT: EOM, pupils equal, round and reactive. Cardiovascular: No JVD., Pulse regular. Lungs: nonlabored breathing Abdomen: Soft, non-tender, no rigidity. Extremities: No deformity, no edema or tenderness, no joint swelling or clubbing. Neurological: Normal cognition and motor skills. Vascular: Pulses: Brachial Pulse Right: Normal Left: Normal Radial Pulse Right: Normal Left: Normal Femoral Pulse Right: Normal Left: Normal Popliteal Pulse Right: Normal Left: Normal Posterior Tibial Right: Normal Left: Normal Dorsalis Pedal Right: Normal Left: Normal ASSESSMENT 37 yo female with b/l UE arm pain that began occurring after she fell out of a swing holding onto the chains on the way to falling to the ground causing, what sounds to be, trauma to the shoulder girdle, cervical spine, or brachial plexus. SHe is here for evaluation for TOS. Diagnostic tests reviewed for today's visit: PLAN/RECOMMENDATIONS TOS specific PT consult Neurology consult for EMG if she has not had that before. Follow up in 3 months. 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 BLOOD SUGAR DIAGNOSTIC STRIPS TEST BLOOD SUGARS 3 TIMES OSORIO* X LEVOTHYROXINE 175 MCG TABLET One tablet Friday thru * POLYETHYLENE GLYCOL 3350 17 G* Take 1 Packet by mouth once d* Patient taking differently: Take 17 g by mouth as needed.* CYCLOBENZAPRINE 10 MG TABLET TAKE 1 TABLET BY MOUTH THREE * GLYBURIDE 1.25 MG TABLET Take 1 tablet by mouth twice * METFORMIN 500 MG TABLET Take 2 tablets by mouth twice* PANTOPRAZOLE 40 MG TABLET,DEL* Take 1 tablet by mouth once d* DIPHENHYDRAMINE 25 MG CAPSULE Take 1 capsule by mouth every* VITAMIN-FERROUS FUMA* Take 1 tablet by mouth once d* DICYCLOMINE 20 MG TABLET TAKE 1 TABLET BY MOUTH 4 TIME* BETAMETHASONE DIPROPIONATE 0.* Apply 1 application to affect* BLOOD-GLUCOSE METER, DRUM-TYP* Use as directed 6 times daily Problem List As Of Date 12/12/2017 Noted Resolved Supervision of other high-risk [O09.8*INVALID FOR*01/28/2012 Obesity [E66.9] INVALID FOR* GERD (gastroesophageal reflux disease) [K21.9] INVALID FOR* Depression [F32.9] INVALID FOR* Hypothyroidism, postsurgical [E89.0] INVALID FOR* Type 2 diabetes mellitus with microalbuminuria,*INVALID FOR* Hyperprolactinemia [E22.1] INVALID FOR*08/16/2014 Stress incontinence [N39.3] INVALID FOR* Mixed hyperlipidemia [E78.2] INVALID FOR* History of thyroid cancer [Z85.850] INVALID FOR* Coccygeal arthritis [M48.9] INVALID FOR*08/28/2016 Obesity, Class I, BMI 30-34.9 [E66.9] INVALID FOR* Constipation [K59.00] INVALID FOR* Paresthesia of left arm [R20.2] INVALID FOR* Paresthesia of right arm [R20.2] INVALID FOR* Varicose veins of bilateral lower extremities w*INVALID FOR* Arterial thoracic outlet syndrome of left subcl*INVALID FOR* Medications Discontinued During This Encounter CALORIC SUPPLEMENT (BENECALORIE ORAL) 12/12/2017 Class: Historical Med Route: ORAL Sig: Take by mouth. Disc: Discontinued by Patient mupirocin (BACTROBAN) 2 % ointment 30 g 2 02/17/2017 12/12/2017 Route: TOPICAL Sig: Apply 1 application to affected area twice daily. Patient not taking: Reported on 11/05/2017 Disc: Discontinued by Patient mupirocin (BACTROBAN) 2 % ointment 15 g 0 10/03/2017 12/12/2017 Route: TOPICAL Sig: Apply 1 application to affected area three times daily. Location: left upper arm Patient not taking: Reported on 11/05/2017 Disc: Discontinued by Patient Letter Text Yamilex Ugalde MD Department of Vascular Surgery [address] [place] [address] / [place] [address] Office: [phone] Appointments: [phone] PHYSICAL THERAPY REFERRAL FORM THORACIC OUTLET SYNDROME Date: December 12, 2017 Name: Juan Menchaca Bilateral Thoracic Outlet Syndrome: Please follow instructions below. - Muscle energy technique/mobilization to pelvis, lumbar, thoracic, cervical spine - Upper quarter stretching (pectoralis major, minor, scalenes, sternocleidomastoid, upper trapezius) - Soft tissue mobilization to upper quarter (pectoralis major, minor, upper trapezius, sternocleidomastoid) - Dural stretching (median, ulnar, radial) - Please instruct in home stretching program, proper posture (sitting, standing, and sleeping) and body mechanics - No strengthening at this time Frequency: 2-3x/week Duration: 3 months (Signature) Encounter Status:Closed by YAMILEX UGALDE MD on 12/31/17 CNCO Observed: 12/12/2017 Status: COMPLETED Source: [place] 12:00 AM [facility] REPOSITORY Letter Text Yamilex Ugalde MD Department of Vascular Surgery [facility] / [place] [address] Office: [phone] Appointments: [phone] January 05, 2018 Randall Magana DO [facility] [place] [address] NAME: Juan Menchaca [facility] NO.: [id number] : 1980 DATE OF SERVICE: 12/12/[address] Magana: Your patient, Ms. Menchaca, was seen by me in the office for a consult. The details of her treatment plan are included in my office note, a copy of which is included for your interest and records. I appreciate the opportunity to participate in Ms. Menchaca's evaluation and treatment. If I can provide further information, please do not hesitate to contact me. Sincerely yours, Yamilex Ugalde MD (Signed electronically to expedite mailing) /kaci Enclosure CNOV Observed: 11/05/2017 Status: COMPLETED Source: [place] 2:45 PM [facility] [place] REPOSITORY Office Visit (ENDMED) JUAN MENCHACA ([id number]) 1980 F Date Time Provider Department 11/05/17 2:45 PM BETSY LEE (LAUREEN) MARGARETTE During your visit today, we recorded the following information about you: Pulse Blood pressure Weight Height 105/minute 115/72 94.1 kg 1.665 m Betsy Lee APRN.CNP 11/06/2017 11:14 AM Signed DIABETES VISIT HISTORIES FAMILY HISTORY Problem Relation Age of Onset - Diabetes Mother diverticular disease - Hypertension Mother - Arthritis Mother - Asthma Mother - Lipids Mother - Cancer Mother 60 anal - Diabetes Father - Hypertension Father - Diabetes Sister - Thyroid Sister - Hypertension Sister - Diabetes Sister - endometriosis [OTHER] Sister - Breast Cancer Maternal Grandmother 30 - Breast Cancer Maternal Aunt 18 bilateral mastectomy PAST MEDICAL HISTORY Diagnosis Date - Abnormal glandular Papanicolaou smear of cervix Abn. Pap smear (cervix) - Acute anal fissure - Allergic rhinitis - Asthma CHILDHOOD ASTHMA - Coccygeal arthritis seen on xray - Diabetes mellitus 01/2010 DM2, insulin dependent - Dyspareunia 07/24/2013 - GERD (gastroesophageal reflux disease) - Hidradenitis suppurativa 01/28/2012 - Hypertension - PCOS (polycystic ovarian syndrome) - Right shoulder pain 12/11/2012 - Rosacea - Thyroid cancer (HCC) 10/02/2012 s/p thyroidectomy, Dr. Camacho PAST SURGICAL HISTORY Procedure Laterality Date - COLONOSCOP W/ OR W/O BRSH SPEC 09/07/2014 Colonoscopy - EGD W/O OR W/BRUSH/WASH 11/11/13 EGD - FNA WITH IMAGING 08/19/12 U/S FNA left thyroid nodule - LAPAROSCOPY DIAGNOSTIC 2011 ectopic salpingectomy, L ovarian cystectomies - LEEP PROCEDURE (EXECUTIVE DIRECTOR OF NURSING DEPT)_*[place] 1993 ANDamp;1995 - OTHER 08/03/2014 left axillary skin resection hidratinitis - THYROIDECTOMY 10-02-12 TOTAL - cancerous. 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 Social History Main Topics Smoking status: Current Every Day Smoker Packs/day: 0.50 Years: 9.00 Types: Cigarettes Last attempt to quit: 01/25/2014 Smokeless status: Never Used Alcohol use: Yes Comment: Seldom Drug use: No Sexual activity: Yes Partners with: Male control/protection: Pill Immunization History Administered Date(s) Administered Influenza Seasonal Inj Quadrivalent Age 3+ 08/05/2016 04/21/2017 Influenza Vaccine, Split-Non Spec 06/25/2011 06/22/2012 07/01/2013 Pneumovax 06/22/2012 ALLERGIES Allergen Reactions - Erythromycin Hives, Swelling Current Outpatient Prescriptions on File Prior to Visit: pantoprazole DR (PROTONIX) 40 mg tablet Take 1 tablet by mouth once daily. mupirocin (BACTROBAN) 2 % ointment Apply 1 application to affected area three times daily. Location: left upper arm diphenhydrAMINE (BENADRYL) 25 mg capsule Take 1 capsule by mouth every 6 hours as needed for Itching/Rash. blood sugar diagnostic (FREESTYLE LITE STRIPS) test strip TEST BLOOD SUGARS 3 TIMES DAILY simvastatin (ZOCOR) 20 mg tablet Take 1 tablet by mouth daily at bedtime. glimepiride (AMARYL) 1 mg tablet TAKE 1 TABLET BY MOUTH ONCE DAILY multivitamin ( VITAMIN WITH MINERALS) 28 mg iron- 800 mcg tab Take 1 tablet by mouth once daily. cyclobenzaprine (FLEXERIL) 10 mg tablet TAKE 1 TABLET BY MOUTH THREE TIMES DAILY NEEDED. spironolactone (ALDACTONE) 100 mg tablet TAKE 1 TABLET BY MOUTH ONCE DAILY. metFORMIN (GLUCOPHAGE) 500 mg tablet Take 2 tablets by mouth twice daily with meals. alogliptin 25 mg tab TAKE 1 TABLET BY MOUTH DAILY BEFORE DINNER. lisinopril (ZESTRIL, PRINIVIL) 10 mg tablet Take 1 tablet by mouth once daily. Norethindrone, Contraceptive, 0.35 mg tablet Take 1 tablet by mouth once daily. mupirocin (BACTROBAN) 2 % ointment Apply 1 application to affected area twice daily. levothyroxine (SYNTHROID) 175 mcg tablet TAKE 1 TABLET BY MOUTH EVERY DAY dicyclomine (BENTYL) 20 mg tablet TAKE 1 TABLET BY MOUTH 4 TIMES A DAY NEEDED betamethasone dipropionate (DIPROSONE) 0.05 % cream Apply 1 application to affected area twice daily as needed. CALORIC SUPPLEMENT (BENECALORIE ORAL) Take by mouth. clindamycin (CLEOCIN) 1 % external solution Apply 1 application to affected area as directed. for 10 days, then discontinue Blood-Glucose Meter, Drum-type (ACCU-CHEK COMPACT PLUS CARE) kit Use as directed 6 times daily No current facility-administered medications on file prior to visit. LABS TSH (uU/mL) Date Value 11/01/2017 0.135 05/14/2017 0.674 10/14/2016 0.386 ALT (U/L) Date Value 11/01/2017 17 05/14/2017 24 07/04/2016 19 Potassium (mmol/L) Date Value 11/01/2017 4.6 05/14/2017 4.3 Creatinine (mg/dL) Date Value 11/01/2017 0.86 05/14/2017 0.79 07/04/2016 0.79 Hemoglobin A1C (%) Date Value 11/01/2017 6.1 05/14/2017 7.1 07/04/2016 7.3 Albumin, Urine Random (mg/L) Date Value 11/01/2017 23.1 07/04/2016 71.0 04/26/2015 34.7 Creatinine, Ur Random (UCRR) (mg/dL) Date Value 11/01/2017 111.3 04/26/2015 120.6 Albumin/Creat Ratio (mg/g) Date Value 11/01/2017 21 04/26/2015 29 Glucose (mg/dL) Date Value 11/01/2017 137 05/14/2017 168 07/04/2016 200 Calcium (mg/dL) Date Value 11/01/2017 9.9 05/14/2017 9.0 Vitamin D 25 Hydroxy (ng/mL) Date Value 02/11/2013 35.5 11/04/2012 12.0 Lipids: Cholesterol, Total (mg/dL) Date Value 11/01/2017 157 05/14/2017 156 07/04/2016 173 HDL Cholesterol (mg/dL) Date Value 11/01/2017 28 05/14/2017 27 07/04/2016 27 LDL Cholesterol (mg/dL) Date Value 11/01/2017 93 05/14/2017 86 07/04/2016 106 Triglyceride (mg/dL) Date Value 11/01/2017 181 05/14/2017 215 07/04/2016 201 I reviewed the Slice Cutting Machine Operator Helper's notes with this visit for vital signs, current allergies, medications, electronic medical record, lab(s), outside lab(s), and or back office lab(s) results, history of vaccinations, and chief complaints. I edited the information obtained, as required. HISTORY OF PRESENT ILLNESS Last endo office visit: 08/28/[address] 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 Patient has had diabetes since 2009. Also known history of obesity, hypertension, hirsutism Family history re DM : parents Patient's last HgA1C was Hemoglobin A1C (%) Date Value 11/01/2017 6.1 Component Latest Ref Rng ANDamp; Units 06/26/2015 05/30/2016 07/04/2016 08/05/2016 10/14/2016 05/14/2017 11/01/2017 Thyroglobulin 0.8 - 49.0 ng/mL ANDlt;0.2 (L) TG Antibody Screen ANDlt;14.4 IU/mL 4.2 TSH 0.400 - 5.500 uU/mL 0.208 (L) 0.036 (L) 0.041 (L) 0.090 (L) 0.386 (L) 0.674 0.135 (L) Free T4 0.9 - 1.7 ng/dL 1.5 1.6 1.5 2.0 (H) -she states that she and are actively trying to get -will discontinue some medications due to this -see AVS instructions -she has had miscarriages in the past -she is accompanied by today Diet: Follows a lower carb diet -trying to eat healthier - has DM Type 2 and both are eating better -admits that she does not like vegetables Medications: The patient is currently taking the following medications to manage her diabetes: -glimepiride 1 mg one tablet daily -metformin 500 mg two tablets twice daily -alogliptin 25 mg daily The patient is currently taking levothyroxine 175 mg daily to 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 Monitoring: She reports checking her glucose with meter: 3 times a day BG Values: she brings Blood glucose log sheets with the following information: Fasting blood glucose range 68-134 with majority of blood glucose readings ANDlt;120 -2 hours after breakfast blood glucose range 78-188 with majority of readings ANDlt;130 Before lunch blood glucose range 80-2 158 with majority 120-140 -2 hour after lunch blood glucose reading range 94-204 Before dinner blood glucose range 86-242 -Two-hour after dinner blood glucose range 147-205 Other issues: Last Ophthalmology exam was within the past 12 months Hypoglycemia awareness:yes. Exercise: ADL Diabetes education: discussed blood glucose control with with patient and REVIEW OF SYSTEMS: GENERAL: No weight loss, malaise or fevers WEIGHT: continues to lose weight EYES:denies any recent visual changes CARDIAC: no chest pain, dyspnea, palpitations, edema, orthopnea, cough LUNG:Negative for cough, hemoptysis, wheezing, COPD, dyspnea or shortness of breath GI: Constipation :no dysuria, frequency, hesitancy, hematuria, polyuria, nocturia, UTIs, yeast infections, or kidney stones SEXUAL/REPRODUCTIVE: off of contraception medications, desires SKIN: Shaves face and chin daily --has not noticed any difference in hair distribution after starting spironolactone FEET:Pt denies callus formation, foot deformity including partial or complete amputation of the foot, ulceration, or peripheral neuropathy MUSCULO-SKELETAL: Pt denies joint pain, stiffness, swelling, cramping or weakness; No back pain, arthritis, full ROM NERVOUS SYSTEM: no numbness, paresthesias, weakness, cramping, burning or dizziness The rest of the ROS is otherwise negative PHYSICAL EXAM: BP 115/72 Pulse 105 Ht 5' 5.551ANDquot; (1.67m) Wt 207 lb 6.4 oz (94.1kg) SpO2 97% BMI 33.94 kg/(m2). Wt: 93 kg (205 lb) BMI: 34.11 kg/(m2) Last 2 Encounter Wt Readings: Date: Wt: 11/01/2017 93 kg (205 lb) 10/03/2017 93.4 kg (206 lb) Appearance:Well appearing, alert, in no acute distress, well- hydrated, well nourished. Eyes:PERRLA, conjunctiva and sclera normal Neck: Supple, no adenopathy; no palpable thyroid, surgical scar is visible Heart:RRR with no JVD appreciated Lungs:clear to auscultation Extremities: No skin discoloration and No edema Neuro:Awake, alert and oriented x 3, No involuntary motions. and Cranial nerves II-XII grossly intact Skin: No rashes or lesions IMPRESSION AND PLAN: (E11.29, R80.9) Type 2 diabetes mellitus with microalbuminuria, without long-term current use of insulin ([facility]) (primary encounter diagnosis) Comment: Well controlled diabetes mellitus type 2 with A1c at 6.1% -Patient states she desires Plan: -discussed need for tight control with -labs: Reviewed most recent A1c with patient -Medications: Will switch medications due to desired -Stop glimepiride 1 mg daily and start glyburide 1.25 mg twice a day -Stop alogliptin -stop lisinopril --patient will monitor BP and if elevated will start other agent for BP control -Refills: Yes, patient requests e-script prescription -Recommended diet: Low carbohydrate -Recommended exercise: 150 minutes of exercise weekly --suggested daily walk after dinner -Monitor blood glucose 3 times per day. The patient was advised to contact the office if the blood sugar readings are consistently high or if having frequent hypoglycemia. -Driving and Diabetes has been reviewed with the patient (Z85.850) History of thyroid cancer Comment: Labs reveal the patient is on too much replacement therapy--I will slightly adjust medication and repeat labs in approximately 6 weeks Plan: levothyroxine (SYNTHROID) 175 mcg tablet, T4 -labs: FREE/FREE THYROX, TSH BLD, THYROGLOBULIN BLD in 6 weeks -medications: Reduce levothyroxine 175 ?g daily to 175 ?g Friday through Friday with 0.5 tablets on Friday -Patient instructed to call office if she obtains a positive test (L68.0) Hirsutism Comment: patient taking spironolactone for hirsutism Plan: -Stop spironolactone for possible demise if male (E66.9) Obesity, Class I, BMI 30-34.9 Comment: Body mass index is 33.94 kg/(m2). Plan: -discussed diet --more vegetables less dairy -discussed need for exercise (E78.2) Mixed hyperlipidemia Comment: will stop simvastatin due to desire for Plan: -stop simvastatin Patient to continue to follow up with her Primary Care Provider and with other consultants regarding her other medical problems. Entire visit was 45 min with ANDgt;50% of time spent as face to face counseling regarding blood sugar monitoring, review of risks, benefits, and side effects of medication(s), symptoms ANDamp; treatment of hypoglycemia, importance of diet adherence, discussion of BMI and weight goals and importance of exercise program and Plan of Care. Next visit in 6 months or sooner if she is . Betsy Lee MSN, BUSINESS INTELLIGENCE MANAGER, CDE Department of Endocrinology, Diabetes and Metabolism Betsy Lee APRN.LAUREEN 11/05/2017 4:03 PM Addendum Decrease levothyroxine 175 mcg to one tablet Friday thru Friday and one half tablet every Friday -have your labs drawn in 6 weeks Stop glimepiride and switch to glyburide 1.25 mg twice daily with breakfast and dinner Continue metformin 500 mg two tablets twice daily with breakfast and dinner Stop spironolactone, alogliptin, simvastatin and lisinopril --due to trying to get -let us know when you have a positive test Referring Provider: VAMSI SUE [[id number]] Allergies As of Date: 11/05/2017 Noted Allergy Reaction ERYTHROMYCIN 01/02/2009 4 - Hives 7 - Swelling Date Reviewed: 11/05/2017 Reviewed by: Betsy ([facility]) Jesus - Fully Assessed Reason for Visit: Established Patient [175] Cmt: thyroid and diabetes Primary Visit Diagnosis:Type 2 diabetes mellitus with microalbuminuria, without long-term current use of insulin (HCC) [E11.29, R80.9] Other Visit Diagnoses:History of thyroid cancer [Z85.850] Hirsutism [L68.0] Obesity, Class I, BMI 30-34.9 [E66.9] Mixed hyperlipidemia [E78.2] Order(s):glyBURIDE (MICRONASE, DIABETA) 1.25 mg tabletTake 1 tablet by mouth twice daily with meals.Disp: 60 tabletRfl: 11 levothyroxine (SYNTHROID) 175 mcg tabletOne tablet Friday thru Friday + 0.5 tablet on FridayDisp: 30 tabletRfl: 11 T4 FREE/FREE THYROX [SQFT4] Order #: [id number] FUTURE TSH BLD [SQTSH] Order #: [id number] FUTURE THYROGLOBULIN BLD [SQTG] Order #: [id number] FUTURE blood sugar diagnostic (FREESTYLE LITE STRIPS) test stripTEST BLOOD SUGARS 3 TIMES DAILYDisp: 300 StripRfl: 3 metFORMIN (GLUCOPHAGE) 500 mg tabletTake 2 tablets by mouth twice daily with meals.Disp: 360 tabletRfl: 3 Prescriptions as of 11/05/2017 Sig: LEVOTHYROXINE 175 MCG TABLET One tablet Friday thru * BLOOD SUGAR DIAGNOSTIC STRIPS TEST BLOOD SUGARS 3 TIMES OSORIO* METFORMIN 500 MG TABLET Take 2 tablets by mouth twice* PANTOPRAZOLE 40 MG TABLET,DEL* Take 1 tablet by mouth once d* VITAMIN-FERROUS FUMA* Take 1 tablet by mouth once d* X CYCLOBENZAPRINE 10 MG TABLET TAKE 1 TABLET BY MOUTH THREE * DICYCLOMINE 20 MG TABLET TAKE 1 TABLET BY MOUTH 4 TIME* BENECALORIE ORAL Take by mouth. BLOOD-GLUCOSE METER, DRUM-TYP* Use as directed 6 times daily GLYBURIDE 1.25 MG TABLET Take 1 tablet by mouth twice * MUPIROCIN 2 % TOPICAL OINTMENT Apply 1 application to affect* Patient not taking: Reported on 11/05/2017 DIPHENHYDRAMINE 25 MG CAPSULE Take 1 capsule by mouth every* Patient not taking: Reported on 11/05/2017 MUPIROCIN 2 % TOPICAL OINTMENT Apply 1 application to affect* Patient not taking: Reported on 11/05/2017 BETAMETHASONE DIPROPIONATE 0.* Apply 1 application to affect* Patient not taking: Reported on 11/05/2017 Medication notes this encounter BENECALORIE ORAL >> Candis Carroll Ma 11/05/2017 3:00 PM >> MILI YOUNG CANDIS FriNov 05, 2017 3:00 PM Not taking >> Candis Carroll Ma 11/05/2017 3:00 PM >> MILI YOUNG CANDIS FriNov 05, 2017 3:00 PM Problem List As Of Date 11/05/2017 Noted Resolved Supervision of other high-risk [O09.8*INVALID FOR*01/28/2012 Obesity [E66.9] INVALID FOR* GERD (gastroesophageal reflux disease) [K21.9] INVALID FOR* Depression [F32.9] INVALID FOR* Hypothyroidism, postsurgical [E89.0] INVALID FOR* Type 2 diabetes mellitus with microalbuminuria,*INVALID FOR* Hyperprolactinemia [E22.1] INVALID FOR*08/16/2014 Stress incontinence [N39.3] INVALID FOR* Mixed hyperlipidemia [E78.2] INVALID FOR* History of thyroid cancer [Z85.850] INVALID FOR* Coccygeal arthritis [M48.9] INVALID FOR*08/28/2016 Obesity, Class I, BMI 30-34.9 [E66.9] INVALID FOR* Constipation [K59.00] INVALID FOR* Paresthesia of left arm [R20.2] INVALID FOR* Paresthesia of right arm [R20.2] INVALID FOR* Varicose veins of bilateral lower extremities w*INVALID FOR* Arterial thoracic outlet syndrome of left subcl*INVALID FOR* Other instructions from your clinician: Decrease levothyroxine 175 mcg to one tablet Friday thru Friday and one half tablet every Friday -have your labs drawn in 6 weeks Stop glimepiride and switch to glyburide 1.25 mg twice daily with breakfast and dinner Continue metformin 500 mg two tablets twice daily with breakfast and dinner Stop spironolactone, alogliptin, simvastatin and lisinopril --due to trying to get -let us know when you have a positive test Prescriptions ordered this encounter Disp Refills Start End GLYBURIDE 1.25 MG TABLET 60 t* 11 11/05/2017 Route: ORAL Sig: Take 1 tablet by mouth twice daily with meals. LEVOTHYROXINE 175 MCG TABLET 30 t* 11 11/05/2017 Class: Med Update Sig: One tablet Friday thru Friday + 0.5 tablet on Friday BLOOD SUGAR DIAGNOSTIC STRIPS 300 * 3 11/05/2017 Sig: TEST BLOOD SUGARS 3 TIMES DAILY METFORMIN 500 MG TABLET 360 * 3 11/05/2017 Route: ORAL Sig: Take 2 tablets by mouth twice daily with meals. Medications Discontinued During This Encounter simvastatin (ZOCOR) 20 mg tablet 90 t* 0 09/19/2017 11/05/2017 Route: ORAL Sig: Take 1 tablet by mouth daily at bedtime. Disc: Clinical Decision spironolactone (ALDACTONE) 100 mg ta* 90 t* 0 04/14/2017 11/05/2017 Sig: TAKE 1 TABLET BY MOUTH ONCE DAILY. Disc: Clinical Decision lisinopril (ZESTRIL, PRINIVIL) 10 mg* 90 t* 3 02/19/2017 11/05/2017 Route: ORAL Sig: Take 1 tablet by mouth once daily. Disc: Clinical Decision clindamycin (CLEOCIN) 1 % external s* 120 * 0 06/10/2016 11/05/2017 Route: TOPICAL Sig: Apply 1 application to affected area as directed. for 10 days, then discontinue Patient not taking: Reported on 11/05/2017 Disc: Course of therapy completed Norethindrone, Contraceptive, 0.35 m* 3 Pa* 0 02/17/2017 11/05/2017 Route: ORAL Sig: Take 1 tablet by mouth once daily. Patient not taking: Reported on 11/05/2017 Disc: Discontinued by another Health Care Provider alogliptin 25 mg tab 30 t* 11 03/17/2017 11/05/2017 Sig: TAKE 1 TABLET BY MOUTH DAILY BEFORE DINNER. Disc: Clinical Decision glimepiride (AMARYL) 1 mg tablet 90 t* 0 08/04/2017 11/05/2017 Sig: TAKE 1 TABLET BY MOUTH ONCE DAILY Disc: Clinical Decision levothyroxine (SYNTHROID) 175 mcg ta* 30 t* 11 12/01/2016 11/05/2017 Sig: TAKE 1 TABLET BY MOUTH EVERY DAY Disc: Reason for discontinue is not on file. blood sugar diagnostic (FREESTYLE LI* 300 * 0 09/19/2017 11/05/2017 Sig: TEST BLOOD SUGARS 3 TIMES DAILY Disc: Reason for discontinue is not on file. metFORMIN (GLUCOPHAGE) 500 mg tablet 360 * 3 04/14/2017 11/05/2017 Route: ORAL Sig: Take 2 tablets by mouth twice daily with meals. Disc: Reason for discontinue is not on file. Disposition: Return in about 6 months (around 05/07/2018). Follow-up and Disposition History Recorded Encounter Status:Closed by BETSY LEE CNP on 11/06/17 PROGRESS Observed: 11/05/2017 Status: COMPLETED Source: [place] 12:38 PM [facility] [place] REPOSITORY HNO ID: [id number] Author: Betsy (Laureen) Jesus Service: (none) Author Type: Nurse Practitioner Type: Progress Notes Filed: 11/06/2017 11:14 AM Note Text: DIABETES VISIT HISTORIES FAMILY HISTORY Problem Relation Age of Onset - Diabetes Mother diverticular disease - Hypertension Mother - Arthritis Mother - Asthma Mother - Lipids Mother - Cancer Mother 60 anal - Diabetes Father - Hypertension Father - Diabetes Sister - Thyroid Sister - Hypertension Sister - Diabetes Sister - endometriosis [OTHER] Sister - Breast Cancer Maternal Grandmother 30 - Breast Cancer Maternal Aunt 18 bilateral mastectomy PAST MEDICAL HISTORY Diagnosis Date - Abnormal glandular Papanicolaou smear of cervix Abn. Pap smear (cervix) - Acute anal fissure - Allergic rhinitis - Asthma CHILDHOOD ASTHMA - Coccygeal arthritis seen on xray - Diabetes mellitus 01/2010 DM2, insulin dependent - Dyspareunia 07/24/2013 - GERD (gastroesophageal reflux disease) - Hidradenitis suppurativa 01/28/2012 - Hypertension - PCOS (polycystic ovarian syndrome) - Right shoulder pain 12/11/2012 - Rosacea - Thyroid cancer (HCC) 10/02/2012 s/p thyroidectomy, Dr. Camacho PAST SURGICAL HISTORY Procedure Laterality Date - COLONOSCOP W/ OR W/O BRSH SPEC 09/07/2014 Colonoscopy - EGD W/O OR W/BRUSH/WASH 11/11/13 EGD - FNA WITH IMAGING 08/19/12 U/S FNA left thyroid nodule - LAPAROSCOPY DIAGNOSTIC 2011 ectopic salpingectomy, L ovarian cystectomies - LEEP PROCEDURE (EXECUTIVE DIRECTOR OF NURSING DEPT)_*[place] 1993 [id number] - OTHER 08/03/2014 left axillary skin resection hidratinitis - THYROIDECTOMY 10-02-12 TOTAL - cancerous. 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 Social History Main Topics Smoking status: Current Every Day Smoker Packs/day: 0.50 Years: 9.00 Types: Cigarettes Last attempt to quit: 01/25/2014 Smokeless status: Never Used Alcohol use: Yes Comment: Seldom Drug use: No Sexual activity: Yes Partners with: Male control/protection: Pill Immunization History Administered Date(s) Administered Influenza Seasonal Inj Quadrivalent Age 3+ 08/05/2016 04/21/2017 Influenza Vaccine, Split-Non Spec 06/25/2011 06/22/2012 07/01/2013 Pneumovax 06/22/2012 ALLERGIES Allergen Reactions - Erythromycin Hives, Swelling Current Outpatient Prescriptions on File Prior to Visit: pantoprazole DR (PROTONIX) 40 mg tablet Take 1 tablet by mouth once daily. mupirocin (BACTROBAN) 2 % ointment Apply 1 application to affected area three times daily. Location: left upper arm diphenhydrAMINE (BENADRYL) 25 mg capsule Take 1 capsule by mouth every 6 hours as needed for Itching/Rash. blood sugar diagnostic (FREESTYLE LITE STRIPS) test strip TEST BLOOD SUGARS 3 TIMES DAILY simvastatin (ZOCOR) 20 mg tablet Take 1 tablet by mouth daily at bedtime. glimepiride (AMARYL) 1 mg tablet TAKE 1 TABLET BY MOUTH ONCE DAILY multivitamin ( VITAMIN WITH MINERALS) 28 mg iron- 800 mcg tab Take 1 tablet by mouth once daily. cyclobenzaprine (FLEXERIL) 10 mg tablet TAKE 1 TABLET BY MOUTH THREE TIMES DAILY NEEDED. spironolactone (ALDACTONE) 100 mg tablet TAKE 1 TABLET BY MOUTH ONCE DAILY. metFORMIN (GLUCOPHAGE) 500 mg tablet Take 2 tablets by mouth twice daily with meals. alogliptin 25 mg tab TAKE 1 TABLET BY MOUTH DAILY BEFORE DINNER. lisinopril (ZESTRIL, PRINIVIL) 10 mg tablet Take 1 tablet by mouth once daily. Norethindrone, Contraceptive, 0.35 mg tablet Take 1 tablet by mouth once daily. mupirocin (BACTROBAN) 2 % ointment Apply 1 application to affected area twice daily. levothyroxine (SYNTHROID) 175 mcg tablet TAKE 1 TABLET BY MOUTH EVERY DAY dicyclomine (BENTYL) 20 mg tablet TAKE 1 TABLET BY MOUTH 4 TIMES A DAY NEEDED betamethasone dipropionate (DIPROSONE) 0.05 % cream Apply 1 application to affected area twice daily as needed. CALORIC SUPPLEMENT (BENECALORIE ORAL) Take by mouth. clindamycin (CLEOCIN) 1 % external solution Apply 1 application to affected area as directed. for 10 days, then discontinue Blood-Glucose Meter, Drum-type (ACCU-CHEK COMPACT PLUS CARE) kit Use as directed 6 times daily No current facility-administered medications on file prior to visit. LABS TSH (uU/mL) Date Value 11/01/2017 0.135 05/14/2017 0.674 10/14/2016 0.386 ALT (U/L) Date Value 11/01/2017 17 05/14/2017 24 07/04/2016 19 Potassium (mmol/L) Date Value 11/01/2017 4.6 05/14/2017 4.3 Creatinine (mg/dL) Date Value 11/01/2017 0.86 05/14/2017 0.79 07/04/2016 0.79 Hemoglobin A1C (%) Date Value 11/01/2017 6.1 05/14/2017 7.1 07/04/2016 7.3 Albumin, Urine Random (mg/L) Date Value 11/01/2017 23.1 07/04/2016 71.0 04/26/2015 34.7 Creatinine, Ur Random (UCRR) (mg/dL) Date Value 11/01/2017 111.3 04/26/2015 120.6 Albumin/Creat Ratio (mg/g) Date Value 11/01/2017 21 04/26/2015 29 Glucose (mg/dL) Date Value 11/01/2017 137 05/14/2017 168 07/04/2016 200 Calcium (mg/dL) Date Value 11/01/2017 9.9 05/14/2017 9.0 Vitamin D 25 Hydroxy (ng/mL) Date Value 02/11/2013 35.5 11/04/2012 12.0 Lipids: Cholesterol, Total (mg/dL) Date Value 11/01/2017 157 05/14/2017 156 07/04/2016 173 HDL Cholesterol (mg/dL) Date Value 11/01/2017 28 05/14/2017 27 07/04/2016 27 LDL Cholesterol (mg/dL) Date Value 11/01/2017 93 05/14/2017 86 07/04/2016 106 Triglyceride (mg/dL) Date Value 11/01/2017 181 05/14/2017 215 07/04/2016 201 I reviewed the Slice Cutting Machine Operator Helper's notes with this visit for vital signs, current allergies, medications, electronic medical record, lab(s), outside lab(s), and or back office lab(s) results, history of vaccinations, and chief complaints. I edited the information obtained, as required. HISTORY OF PRESENT ILLNESS Last endo office visit: 08/28/[address] 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 Patient has had diabetes since 2009. Also known history of obesity, hypertension, hirsutism Family history re DM : parents Patient's last HgA1C was Hemoglobin A1C (%) Date Value 11/01/2017 6.1 Component Latest Ref Rng AND Units 06/26/2015 05/30/2016 07/04/2016 08/05/2016 10/14/2016 05/14/2017 11/01/2017 Thyroglobulin 0.8 - 49.0 ng/mL <0.2 (L) TG Antibody Screen <14.4 IU/mL 4.2 TSH 0.400 - 5.500 uU/mL 0.208 (L) 0.036 (L) 0.041 (L) 0.090 (L) 0.386 (L) 0.674 0.135 (L) Free T4 0.9 - 1.7 ng/dL 1.5 1.6 1.5 2.0 (H) -she states that she and are actively trying to get -will discontinue some medications due to this -see AVS instructions -she has had miscarriages in the past -she is accompanied by today Diet: Follows a lower carb diet -trying to eat healthier - has DM Type 2 and both are eating better -admits that she does not like vegetables Medications: The patient is currently taking the following medications to manage her diabetes: -glimepiride 1 mg one tablet daily -metformin 500 mg two tablets twice daily -alogliptin 25 mg daily The patient is currently taking levothyroxine 175 mg daily to 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 Monitoring: She reports checking her glucose with meter: 3 times a day BG Values: she brings Blood glucose log sheets with the following information: Fasting blood glucose range 68-134 with majority of blood glucose readings <120 -2 hours after breakfast blood glucose range 78-188 with majority of readings <130 Before lunch blood glucose range 80-2 158 with majority 120-140 -2 hour after lunch blood glucose reading range 94-204 Before dinner blood glucose range 86-242 -Two-hour after dinner blood glucose range 147-205 Other issues: Last Ophthalmology exam was within the past 12 months Hypoglycemia awareness:yes. Exercise: ADL Diabetes education: discussed blood glucose control with with patient and REVIEW OF SYSTEMS: GENERAL: No weight loss, malaise or fevers WEIGHT: continues to lose weight EYES:denies any recent visual changes CARDIAC: no chest pain, dyspnea, palpitations, edema, orthopnea, cough LUNG:Negative for cough, hemoptysis, wheezing, COPD, dyspnea or shortness of breath GI: Constipation :no dysuria, frequency, hesitancy, hematuria, polyuria, nocturia, UTIs, yeast infections, or kidney stones SEXUAL/REPRODUCTIVE: off of contraception medications, desires SKIN: Shaves face and chin daily --has not noticed any difference in hair distribution after starting spironolactone FEET:Pt denies callus formation, foot deformity including partial or complete amputation of the foot, ulceration, or peripheral neuropathy MUSCULO-SKELETAL: Pt denies joint pain, stiffness, swelling, cramping or weakness; No back pain, arthritis, full ROM NERVOUS SYSTEM: no numbness, paresthesias, weakness, cramping, burning or dizziness The rest of the ROS is otherwise negative PHYSICAL EXAM: BP 115/72 Pulse 105 Ht 5' 5.551 (1.67m) Wt 207 lb 6.4 oz (94.1kg) SpO2 97% BMI 33.94 kg/(m2). Wt: 93 kg (205 lb) BMI: 34.11 kg/(m2) Last 2 Encounter Wt Readings: Date: Wt: 11/01/2017 93 kg (205 lb) 10/03/2017 93.4 kg (206 lb) Appearance:Well appearing, alert, in no acute distress, well-hydrated, well nourished. Eyes:PERRLA, conjunctiva and sclera normal Neck: Supple, no adenopathy; no palpable thyroid, surgical scar is visible Heart:RRR with no JVD appreciated Lungs:clear to auscultation Extremities: No skin discoloration and No edema Neuro:Awake, alert and oriented x 3, No involuntary motions. and Cranial nerves II-XII grossly intact Skin: No rashes or lesions IMPRESSION AND PLAN: (E11.29, R80.9) Type 2 diabetes mellitus with microalbuminuria, without long-term current use of insulin ([facility]) (primary encounter diagnosis) Comment: Well controlled diabetes mellitus type 2 with A1c at 6.1% -Patient states she desires Plan: -discussed need for tight control with -labs: Reviewed most recent A1c with patient -Medications: Will switch medications due to desired -Stop glimepiride 1 mg daily and start glyburide 1.25 mg twice a day -Stop alogliptin -stop lisinopril --patient will monitor BP and if elevated will start other agent for BP control -Refills: Yes, patient requests e-script prescription -Recommended diet: Low carbohydrate -Recommended exercise: 150 minutes of exercise weekly --suggested daily walk after dinner -Monitor blood glucose 3 times per day. The patient was advised to contact the office if the blood sugar readings are consistently high or if having frequent hypoglycemia. -Driving and Diabetes has been reviewed with the patient (Z85.850) History of thyroid cancer Comment: Labs reveal the patient is on too much replacement therapy--I will slightly adjust medication and repeat labs in approximately 6 weeks Plan: levothyroxine (SYNTHROID) 175 mcg tablet, T4 -labs: FREE/FREE THYROX, TSH BLD, THYROGLOBULIN BLD in 6 weeks -medications: Reduce levothyroxine 175 ?g daily to 175 ?g Friday through Friday with 0.5 tablets on Friday -Patient instructed to call office if she obtains a positive test (L68.0) Hirsutism Comment: patient taking spironolactone for hirsutism Plan: -Stop spironolactone for possible demise if male (E66.9) Obesity, Class I, BMI 30-34.9 Comment: Body mass index is 33.94 kg/(m2). Plan: -discussed diet --more vegetables less dairy -discussed need for exercise (E78.2) Mixed hyperlipidemia Comment: will stop simvastatin due to desire for Plan: -stop simvastatin Patient to continue to follow up with her Primary Care Provider and with other consultants regarding her other medical problems. Entire visit was 45 min with >50% of time spent as face to face counseling regarding blood sugar monitoring, review of risks, benefits, and side effects of medication(s), symptoms AND treatment of hypoglycemia, importance of diet adherence, discussion of BMI and weight goals and importance of exercise program and Plan of Care. Next visit in 6 months or sooner if she is . Betsy Lee MSN, BUSINESS INTELLIGENCE MANAGER, CDE Department of Endocrinology, Diabetes and Metabolism ALBUMIN/CREAT RATIO Collected: 11/01/2017 Status: F Source: [place] 10:50 AM [facility] REPOSITORY TYPE CODE TESTS RESULT OUT OF REFERENCE UNITS RANGE LAB UCRR 20-300 mg/dL Creatinine,Ur 111.3 ine,Ran LAB UALBR 0.0-23.0 mg/L High Albumin Urine 23.1 Random LAB UALBCR 0-30 mg/g Albumin/Creat 21 Ratio Result Comment: 30 to 300 mg/g indicates an increased risk for diabetic nephropathy. Greater than 300 mg/g is consistent with clinical nephropathy. (Am J Kidney Disease 1994, 25:107) Performed By: #### UACR #### [place] [address] [place], [place] [address] CBC Collected: 11/01/2017 Status: F Source: [place] 10:30 AM [facility] REPOSITORY TYPE CODE TESTS RESULT OUT OF REFERENCE UNITS RANGE LAB WBC 3.70-11.00 k/uL WBC High 12.63 LAB RBC 3.90-5.20 m/uL RBC High 5.35 LAB HGB 11.5-15.5 g/dL High Hemoglobin 15.8 LAB HCT 36.0-46.0 % High Hematocrit 48.9 LAB MCV 80.0-100.0 fL MCV 91.4 LAB MCH 26.0-34.0 pG MCH 29.5 LAB MCHC 30.5-36.0 g/dL MCHC 32.3 LAB RDWCV 11.5-15.0 % RDW-CV 14.7 LAB PLTCT 150-400 k/uL Platelet Count 327 LAB MPV 9.0-12.7 fL MPV 11.3 LAB ABSNUC <0.01 k/uL Absolute nRBC <0.01 Performed By: #### CBC, CMP, LIPB, TSH, FT4, HBA1C #### [facility] [address] [place], [place] [address] COMP METABOLIC PANEL Collected: 11/01/2017 Status: F Source: [place] 10:30 AM [facility] REPOSITORY TYPE CODE TESTS RESULT OUT OF REFERENCE UNITS RANGE LAB TP 6.3-8.0 g/dL Protein, High Total 8.1 LAB ALB 3.9-4.9 g/dL Albumin 4.1 LAB CA 8.5-10.2 mg/dL Calcium, Total 9.9 LAB TBIL 0.2-1.3 mg/dL Low Bilirubin, Total <0.2 LAB ALKP 32-117 U/L Alkaline Phosphatase 63 LAB AST 13-35 U/L AST 20 LAB GLU 74-99 mg/dL Glucose High 137 Result Comment: The [place] Diabetes Association (ADA) provides guidance for cutoff values for fasting glucose and random glucose. The ADA defines fasting as no caloric intake for at least 8 hours. Fas ting plasma glucose results between 100 to 125 mg/dL indicate increased risk for diabetes (prediabetes). Fasting plasma glucose results greater than or equal to 126 mg/dL meet the criteria for diagnosis of diabetes. In the absence of unequivocal hyperglycemia, results should be confirmed by repeat testing. In a patient with classic symptoms of hyperglycemia or hyperglycemic crisis, random plasma glucose results greater than or equal to 200 mg/dL meet the criteria for diagnosis of diabetes. Reference: Standards of Medical Care in Diabetes 2016, [place] Diabetes Association. Diabetes Care. 2016.39(Suppl 1). LAB BUN 7-21 mg/dL BUN 14 LAB CRET 0.58-0.96 mg/dL Creatinine 0.86 LAB NA 136-144 mmol/L Sodium 137 LAB K 3.7-5.1 mmol/L Potassium 4.6 LAB CL 97-105 mmol/L Chloride 100 LAB CO2 22-30 mmol/L CO2 27 LAB AGAP 9-18 mmol/L Anion Gap 10 LAB ALT 7-38 U/L ALT 17 LAB GFRAA eGFR- Amer. >60 LAB GFRNAA . eGFR-All Other Races >60 Result Comment: eGFR (Estimated GFR) Units of measure: mL/min/1.73 meters squared eGFR is derived from the reexpressed MDRD Study equation using the following parameters: serum creatinine, age, gender and race. The creatinine assay has been calibrated to be traceable to IDMS. An eGFR <60 mL/min/1.73m2 for >3 months is consistent with chronic kidney disease. Refer to KDOQI guidelines for clinical interpretation. In patients with unstable renal function, e.g. those with acute kidney injury, the eGFR may not accurately reflect actual GFR. Performed By: #### CBC, CMP, LIPB, TSH, FT4, HBA1C #### [facility] [address] [place] [address] LIPID PANEL, BASIC Collected: 11/01/2017 Status: F Source: [place] 10:30 AM [facility] REPOSITORY TYPE CODE TESTS RESULT OUT OF REFERENCE UNITS RANGE LAB CHOL <200 mg/dL Cholesterol 157 Result Comment: <200 mg/dL, Desirable 200-239 mg/dL, Borderline high >239 mg/dL, High LAB TRIGLY <150 mg/dL Triglyceride High 181 Result Comment: <150 mg/dL, Normal 150-199 mg/dL, Borderline high 200-499 mg/dL, High >499 mg/dL, Very high LAB HDL >39 mg/dL HDL-Cholesterol Low 28 Result Comment: 40-59 mg/dL, Acceptable >59 mg/dL, High: Negative risk factor for coronary heart disease <40 mg/dL, Low: Positive risk factor for coronary heart disease LAB LDL <100 mg/dL LDL-Cholesterol 93 Result Comment: <100 mg/dL, Optimal 100-129 mg/dL, Near optimal/above optimal 130-159 mg/dL, Borderline high 160-189 mg/dL, High >189 mg/dL, Very high Secondary prevention optimal LDL Cholesterol levels are recommended to be < 70 mg/dL LAB NONHDL <130 mg/dL Non HDL Cholesterol 129 Result Comment: <130 mg/dL, Optimal 130-159 mg/dL, Near optimal/above optimal 160-189 mg/dL, Borderline high 190-219 mg/dL, High >219 mg/dL, Very high Secondary prevention optimal non HDL Cholesterol levels are recommended to be < 100 mg/dL LAB FT hrs Fasting Time 11 LAB VLDL <30 mg/dL High VLDL Cholesterol 36 LAB TCHDL <5.10 High TC:HDL Ratio 5.61 LAB LDLHDL <2.54 High LDL:HDL Ratio 3.32 Result Comment: Reference: 1. National Cholesterol Education Program ATP III Guideline At-A-Glance Quick Desk Reference: National Heart, Lung, and Blood [place]. National Institutes of Health. 2001: NIH Publication No. 01-3305. 2. An International Atherosclerosis Society position paper: global recommendations for the management of dyslipidemia: executive summary, Atherosclerosis. 2014: 232(2):410-413. Performed By: #### CBC, CMP, LIPB, TSH, FT4, HBA1C #### [facility] [address] [place], [place] [address] TSH Collected: 11/01/2017 Status: F Source: [place] 10:30 AM [facility] REPOSITORY TYPE CODE TESTS RESULT OUT OF RANGE REFERENCE UNITS LAB TSH 0.400-5.500 uU/mL Low TSH 0.135 Result Comment: If the patient is , TSH reference range varies by gestational period: First Trimester 0.100-2.500 uU/mL Second Trimester 0.200-3.000 uU/mL Third Trimester 0.300-3.000 uU/mL References: 1. Perdue, Stanley M, Miguel Angel EK, et al. Management of Thyroid Dysfunction during and : An Endocrine Society Clinical Practice Guideline. J Clin Endocrinol Metab, 2012:97:3678-2576. 2. Morgan MARTINEZ. Overview of thyroid disease in . UpToDate. 2016. Accessed on January 12, 2016. Performed By: #### CBC, CMP, LIPB, TSH, FT4, HBA1C #### [facility] [address] [place], [place] [address] FREE T4 Collected: 11/01/2017 Status: F Source: [place] 10:30 AM [facility] REPOSITORY TYPE CODE TESTS RESULT OUT OF RANGE REFERENCE UNITS LAB FT4 0.9-1.7 ng/dL High Free T4 2.0 Performed By: #### CBC, CMP, LIPB, TSH, FT4, HBA1C #### [facility] [address] [place], [place] [address] HEMOGLOBIN A1C Collected: 11/01/2017 Status: F Source: [place] 10:30 AM [facility] REPOSITORY TYPE CODE TESTS RESULT OUT OF REFERENCE UNITS RANGE LAB HGBA1C 4.3-5.6 % High Hemoglobin A1c 6.1 LAB HBA0 mg/dL Est. Average Glucose 128 Result Comment: eAG: (Estimated average glucose) is a calculated value from HgbA1c and is school admissions representative of the average blood glucose level in the last 2-3 month period. Performed By: #### CBC, CMP, LIPB, TSH, FT4, HBA1C #### [facility] [address] [place], [place] [address] PROGRESS Observed: 11/01/2017 Status: COMPLETED Source: [place] 10:27 AM [facility] REPOSITORY HNO ID: [id number] Author: Randall Magana Service: (none) Author Type: Physician Type: Progress Notes Filed: 11/01/2017 10:31 AM Note Text: CC: Juan Menchaca is a 36 year old female who presents to the office to establish care. HPI: Diabetes, taking Metformin and Glimepiride, tolerating well, working on weight loss with cutting back on portions and carbohydrate intake Hemoglobin A1C Date Value Ref Range Status 05/14/2017 7.1 (H) 4.3 - 5.6 % Final Comment: [place] Diabetes Association guidelines indicate that patients with HgbA1c in the range 5.7-6.4% are at increased risk for development of diabetes, and intervention by lifestyle modification may be beneficial. HgbA1c greater or equal to 6.5% is considered diagnostic of diabetes. 07/04/2016 7.3 (H) 4.3 - 5.6 % Final Comment: [place] Diabetes Association guidelines indicate that patients with HgbA1c in the range 5.7-6.4% are at increased risk for development of diabetes, and intervention by lifestyle modification may be beneficial. HgbA1c greater or equal to 6.5% is considered diagnostic of diabetes. 09/25/2015 7.8 (H) 4.3 - 5.6 % Final Comment: [place] Diabetes Association guidelines indicate that patients with HgbA1c in the range 5.7-6.4% are at increased risk for development of diabetes, and intervention by lifestyle modification may be beneficial. HgbA1c greater or equal to 6.5% is considered diagnostic of diabetes. 06/26/2015 7.1 (H) 4.3 - 5.6 % Final Comment: [place] Diabetes Association guidelines indicate that patients with HgbA1c in the range 5.7-6.4% are at increased risk for development of diabetes, and intervention by lifestyle modification may be beneficial. HgbA1c greater or equal to 6.5% is considered diagnostic of diabetes. 04/26/2015 7.4 (H) 4.3 - 5.6 % Final Comment: [place] Diabetes Association guidelines indicate that patients with HgbA1c in the range 5.7-6.4% are at increased risk for development of diabetes, and intervention by lifestyle modification may be beneficial. HgbA1c greater or equal to 6.5% is considered diagnostic of diabetes. Dyslipidemia, due for lab recheck, working on weight loss and diet changes Cholesterol, Total Date Value Ref Range Status 05/14/2017 156 100 - 199 mg/dL Final HDL Cholesterol Date Value Ref Range Status 05/14/2017 27 (L) >55 mg/dL Final LDL Cholesterol Date Value Ref Range Status 05/14/2017 86 60 - 129 mg/dL Final Triglyceride Date Value Ref Range Status 05/14/2017 215 (H) 30 - 149 mg/dL Final Thoracic outlet syndrome, diagnosed through testing at [facility], waking up in middle of the night and with overhead activities with tingling/paresthesias in hands, needing referral for specialist B/l legs, varicose veins, sometimes painful, intermittent edema, needing rx for compression stockings intermittent constipation, improved with Miralax and fiber supplement PAST MEDICAL HISTORY Diagnosis Date - Abnormal glandular Papanicolaou smear of cervix Abn. Pap smear (cervix) - Acute anal fissure - Allergic rhinitis - Asthma CHILDHOOD ASTHMA - Coccygeal arthritis seen on xray - Diabetes mellitus 01/2010 DM2, insulin dependent - Dyspareunia 07/24/2013 - GERD (gastroesophageal reflux disease) - Hidradenitis suppurativa 01/28/2012 - Hypertension - PCOS (polycystic ovarian syndrome) - Right shoulder pain 12/11/2012 - Rosacea - Thyroid cancer (HCC) 10/02/2012 s/p thyroidectomy, Dr. Camacho PAST SURGICAL HISTORY Procedure Laterality Date - COLONOSCOP W/ OR W/O BRSH SPEC 09/07/2014 Colonoscopy - EGD W/O OR W/BRUSH/WASH 11/11/13 EGD - FNA WITH IMAGING 08/19/12 U/S FNA left thyroid nodule - LAPAROSCOPY DIAGNOSTIC 2011 ectopic salpingectomy, L ovarian cystectomies - LEEP PROCEDURE (EXECUTIVE DIRECTOR OF NURSING DEPT)_*FL 1993 [id number] - OTHER 08/03/2014 left axillary skin resection hidratinitis - THYROIDECTOMY 10-02-12 TOTAL - cancerous. Social History: Social History Substance Use Topics - Smoking status: Current Every Day Smoker Packs/day: 0.50 Years: 9.00 Types: Cigarettes Last attempt to quit: 01/25/2014 - Smokeless tobacco: Never Used - Alcohol use Yes Comment: Seldom FAMILY HISTORY Problem Relation Age of Onset - Diabetes Mother diverticular disease - Hypertension Mother - Arthritis Mother - Asthma Mother - Lipids Mother - Cancer Mother 60 anal - Diabetes Father - Hypertension Father - Diabetes Sister - Thyroid Sister - Hypertension Sister - Diabetes Sister - endometriosis [OTHER] Sister - Breast Cancer Maternal Grandmother 30 - Breast Cancer Maternal Aunt 18 bilateral mastectomy Current Outpatient prescriptions: pantoprazole DR (PROTONIX) 40 mg tablet Take 1 tablet by mouth once daily. mupirocin (BACTROBAN) 2 % ointment Apply 1 application to affected area three times daily. Location: left upper arm diphenhydrAMINE (BENADRYL) 25 mg capsule Take 1 capsule by mouth every 6 hours as needed for Itching/Rash. blood sugar diagnostic (FREESTYLE LITE STRIPS) test strip TEST BLOOD SUGARS 3 TIMES DAILY simvastatin (ZOCOR) 20 mg tablet Take 1 tablet by mouth daily at bedtime. glimepiride (AMARYL) 1 mg tablet TAKE 1 TABLET BY MOUTH ONCE DAILY multivitamin ( VITAMIN WITH MINERALS) 28 mg iron- 800 mcg tab Take 1 tablet by mouth once daily. cyclobenzaprine (FLEXERIL) 10 mg tablet TAKE 1 TABLET BY MOUTH THREE TIMES DAILY NEEDED. spironolactone (ALDACTONE) 100 mg tablet TAKE 1 TABLET BY MOUTH ONCE DAILY. metFORMIN (GLUCOPHAGE) 500 mg tablet Take 2 tablets by mouth twice daily with meals. alogliptin 25 mg tab TAKE 1 TABLET BY MOUTH DAILY BEFORE DINNER. lisinopril (ZESTRIL, PRINIVIL) 10 mg tablet Take 1 tablet by mouth once daily. levothyroxine (SYNTHROID) 175 mcg tablet TAKE 1 TABLET BY MOUTH EVERY DAY dicyclomine (BENTYL) 20 mg tablet TAKE 1 TABLET BY MOUTH 4 TIMES A DAY NEEDED betamethasone dipropionate (DIPROSONE) 0.05 % cream Apply 1 application to affected area twice daily as needed. CALORIC SUPPLEMENT (BENECALORIE ORAL) Take by mouth. clindamycin (CLEOCIN) 1 % external solution Apply 1 application to affected area as directed. for 10 days, then discontinue Blood-Glucose Meter, Drum-type (ACCU-CHEK COMPACT PLUS CARE) kit Use as directed 6 times daily Norethindrone, Contraceptive, 0.35 mg tablet Take 1 tablet by mouth once daily. mupirocin (BACTROBAN) 2 % ointment Apply 1 application to affected area twice daily. Allergies: ALLERGIES Allergen Reactions - Erythromycin Hives, Swelling ROS: See HPI PE: 11/01/17 0931 BP: 108/76 Pulse: 84 Resp: 16 Weight: 93 kg (205 lb) Height: 165.1 cm (5' 5) Gen: AANDO, NAD, non-toxic appearing, Pleasant, cooperative, obese HEENT: NT/AC, PERRLA, EOMs intact b/l, nares clear and patent b/l, pharynx without erythema, exudate or lesions. Uvula midline. Missing/decayed teeth, MMM, EACs without erythema or debris. TMs pearly beard with intact landmarks b/l. Neck: supple, No cervical LAD, no thyromegaly, no carotid bruits CV: RRR, normal S1 and S2, no murmurs, no gallops, no rubs, Pulses 2+ and symmetric in UE and LE b/l Lungs: normal respiratory effort, CTA b/l, no wheezing or rhonchi or rales Abd: soft, obese, NT, ND, +BS, no hepatosplenomegaly MS: FROM all 4 extremities Neuro: CN II-XII intact b/l, strength 5/5 b/l UE and LE, DTRs 2/4 UE and LE, sensation intact. Skin: warm, dry, intact, varicose veins b/l legs up to thighs with trace pretibial edema b/l legs, no ulcerations/wounds ASSESSMENT/PLAN: 1. Routine physical examination - ICD9: V70.0, ICD10: Z00.00 (primary diagnosis) - Encouraged monthly Breast Self Exam - Recommended calcium intake with supplements or by diet (goal of 1423-4508 mg/day - Recommended regular aerobic exercise. - Discussed need and benefit for weight loss. BMI 34.11 kg/(m2) - Follow up for annual exam in one year. 2. Mixed hyperlipidemia - ICD9: 272.2, ICD10: E78.2 - to be determined upon return of lab results - Continue current medication. - Encouraged following a low fat, low cholesterol diet. - Discussed the benefits of regular aerobic exercise and weight loss. - Check fasting lipid panel - LIPID PANEL BASIC 3. Type 2 diabetes mellitus with microalbuminuria, without long-term current use of insulin (HCC) - ICD9: 250.40, 791.0, ICD10: E11.29, R80.9 uncontrolled improved control - Continue current medications - Check HgA1C, fasting glucose and fasting lipid panel - HGB A1C - COMP METABOLIC PANEL - CBC - CONSULT TO OPHTHALMOLOGY 4. Hypothyroidism, postsurgical - ICD9: 244.0, ICD10: E89.0 - Instructed patient on importance of taking on an empty stomach either first thing in the morning or at bedtime. - check TSH and free T4 today - TSH BLD - T4 FREE/FREE THYROX 5. Varicose veins of bilateral lower extremities with pain - ICD9: 454.8, ICD10: I83.813 - rx as below, f/u with Vascular surgeon - GRAD COMPR STOCK THIGH 18-30 WEIGHT 6. 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 Paresthesia of right arm - ICD9: 782.0, ICD10: R20.2 - secondary to thoracic outlet syndrome, f/u with specialist 8. Paresthesia of left arm - ICD9: 782.0, ICD10: R20.2 - see above 9. Constipation, unspecified constipation type - ICD9: 564.00, ICD10: K59.00 - continue fiber and Miralax supplements 10. Obesity, Class I, BMI 30-34.9 - ICD9: 278.00, ICD10: E66.9 - Lengthy discussion in office today regarding diet and exercise. Discussed use of small plate to eat meals from, drink 1 glass of water 10-15 minutes prior to eating meal, drink 8 glasses of water daily, eat fresh fruit and vegetable during meal first then lean protein such as grilled/baked chicken breast or fish, limit carbohydrate intake (less pasta, breads, rice and snack foods) as well as limiting sugars (desserts etc). Important to count / track your calories and exercise as well. Randall Magana DO To ER if develops chest pain, shortness of breath, or severe worsening of symptoms. Discussed risks, benefits, alternatives, and potential side effects of medications. Patient expressed understanding and agreed with the plan. Randall Magana DO [address] [place] [address] ELLIEOV Observed: 11/01/2017 Status: COMPLETED Source: [place] 9:20 AM [facility] REPOSIT[facility] JUAN MENCHACA ([id number]) 1980 F Date Time Provider Department 11/01/17 9:20 AM RANDALL MAGANA During your visit today, we recorded the following information about you: Pulse Respiration Blood pressure Weight 84/minute 16/minute 108/76 93 kg Height 1.651 m Randall Magana DO 11/01/2017 10:31 AM Signed CC: Juan Menchaca is a 36 year old female who presents to the office to establish care. HPI: Diabetes, taking Metformin and Glimepiride, tolerating well, working on weight loss with cutting back on portions and carbohydrate intake Hemoglobin A1C Date Value Ref Range Status 05/14/2017 7.1 (H) 4.3 - 5.6 % Final Comment: [place] [employer] guidelines indicate that patients with HgbA1c in the range 5.7-6.4% are at increased risk for development of diabetes, and intervention by lifestyle modification may be beneficial. HgbA1c greater or equal to 6.5% is considered diagnostic of diabetes. 07/04/2016 7.3 (H) 4.3 - 5.6 % Final Comment: [place] [employer] guidelines indicate that patients with HgbA1c in the range 5.7-6.4% are at increased risk for development of diabetes, and intervention by lifestyle modification may be beneficial. HgbA1c greater or equal to 6.5% is considered diagnostic of diabetes. 09/25/2015 7.8 (H) 4.3 - 5.6 % Final Comment: [place] [employer] guidelines indicate that patients with HgbA1c in the range 5.7-6.4% are at increased risk for development of diabetes, and intervention by lifestyle modification may be beneficial. HgbA1c greater or equal to 6.5% is considered diagnostic of diabetes. 06/26/2015 7.1 (H) 4.3 - 5.6 % Final Comment: [place] [employer] guidelines indicate that patients with HgbA1c in the range 5.7-6.4% are at increased risk for development of diabetes, and intervention by lifestyle modification may be beneficial. HgbA1c greater or equal to 6.5% is considered diagnostic of diabetes. 04/26/2015 7.4 (H) 4.3 - 5.6 % Final Comment: [place] [employer] guidelines indicate that patients with HgbA1c in the range 5.7-6.4% are at increased risk for development of diabetes, and intervention by lifestyle modification may be beneficial. HgbA1c greater or equal to 6.5% is considered diagnostic of diabetes. Dyslipidemia, due for lab recheck, working on weight loss and diet changes Cholesterol, Total Date Value Ref Range Status 05/14/2017 156 100 - 199 mg/dL Final HDL Cholesterol Date Value Ref Range Status 05/14/2017 27 (L) ANDgt;55 mg/dL Final LDL Cholesterol Date Value Ref Range Status 05/14/2017 86 60 - 129 mg/dL Final Triglyceride Date Value Ref Range Status 05/14/2017 215 (H) 30 - 149 mg/dL Final Thoracic outlet syndrome, diagnosed through testing at [facility], waking up in middle of the night and with overhead activities with tingling/paresthesias in hands, needing referral for specialist B/l legs, varicose veins, sometimes painful, intermittent edema, needing rx for compression stockings intermittent constipation, improved with Miralax and fiber supplement PAST MEDICAL HISTORY Diagnosis Date - Abnormal glandular Papanicolaou smear of cervix Abn. Pap smear (cervix) - Acute anal fissure - Allergic rhinitis - Asthma CHILDHOOD ASTHMA - Coccygeal arthritis seen on xray - Diabetes mellitus 01/2010 DM2, insulin dependent - Dyspareunia 07/24/2013 - GERD (gastroesophageal reflux disease) - Hidradenitis suppurativa 01/28/2012 - Hypertension - PCOS (polycystic ovarian syndrome) - Right shoulder pain 12/11/2012 - Rosacea - Thyroid cancer (HCC) 10/02/2012 s/p thyroidectomy, Dr. Camacho PAST SURGICAL HISTORY Procedure Laterality Date - COLONOSCOP W/ OR W/O BRSH SPEC 09/07/2014 Colonoscopy - EGD W/O OR W/BRUSH/WASH 11/11/13 EGD - FNA WITH IMAGING 08/19/12 U/S FNA left thyroid nodule - LAPAROSCOPY DIAGNOSTIC 2011 ectopic salpingectomy, L ovarian cystectomies - LEEP PROCEDURE (EXECUTIVE DIRECTOR OF NURSING DEPT)_*FL 1993 ANDamp;1995 - OTHER 08/03/2014 left axillary skin resection hidratinitis - THYROIDECTOMY 10-02-12 TOTAL - cancerous. Social History: Social History Substance Use Topics - Smoking status: Current Every Day Smoker Packs/day: 0.50 Years: 9.00 Types: Cigarettes Last attempt to quit: 01/25/2014 - Smokeless tobacco: Never Used - Alcohol use Yes Comment: Seldom FAMILY HISTORY Problem Relation Age of Onset - Diabetes Mother diverticular disease - Hypertension Mother - Arthritis Mother - Asthma Mother - Lipids Mother - Cancer Mother 60 anal - Diabetes Father - Hypertension Father - Diabetes Sister - Thyroid Sister - Hypertension Sister - Diabetes Sister - endometriosis [OTHER] Sister - Breast Cancer Maternal Grandmother 30 - Breast Cancer Maternal Aunt 18 bilateral mastectomy Current Outpatient prescriptions: pantoprazole DR (PROTONIX) 40 mg tablet Take 1 tablet by mouth once daily. mupirocin (BACTROBAN) 2 % ointment Apply 1 application to affected area three times daily. Location: left upper arm diphenhydrAMINE (BENADRYL) 25 mg capsule Take 1 capsule by mouth every 6 hours as needed for Itching/Rash. blood sugar diagnostic (FREESTYLE LITE STRIPS) test strip TEST BLOOD SUGARS 3 TIMES DAILY simvastatin (ZOCOR) 20 mg tablet Take 1 tablet by mouth daily at bedtime. glimepiride (AMARYL) 1 mg tablet TAKE 1 TABLET BY MOUTH ONCE DAILY multivitamin ( VITAMIN WITH MINERALS) 28 mg iron- 800 mcg tab Take 1 tablet by mouth once daily. cyclobenzaprine (FLEXERIL) 10 mg tablet TAKE 1 TABLET BY MOUTH THREE TIMES DAILY NEEDED. spironolactone (ALDACTONE) 100 mg tablet TAKE 1 TABLET BY MOUTH ONCE DAILY. metFORMIN (GLUCOPHAGE) 500 mg tablet Take 2 tablets by mouth twice daily with meals. alogliptin 25 mg tab TAKE 1 TABLET BY MOUTH DAILY BEFORE DINNER. lisinopril (ZESTRIL, PRINIVIL) 10 mg tablet Take 1 tablet by mouth once daily. levothyroxine (SYNTHROID) 175 mcg tablet TAKE 1 TABLET BY MOUTH EVERY DAY dicyclomine (BENTYL) 20 mg tablet TAKE 1 TABLET BY MOUTH 4 TIMES A DAY NEEDED betamethasone dipropionate (DIPROSONE) 0.05 % cream Apply 1 application to affected area twice daily as needed. CALORIC SUPPLEMENT (BENECALORIE ORAL) Take by mouth. clindamycin (CLEOCIN) 1 % external solution Apply 1 application to affected area as directed. for 10 days, then discontinue Blood-Glucose Meter, Drum-type (ACCU-CHEK COMPACT PLUS CARE) kit Use as directed 6 times daily Norethindrone, Contraceptive, 0.35 mg tablet Take 1 tablet by mouth once daily. mupirocin (BACTROBAN) 2 % ointment Apply 1 application to affected area twice daily. Allergies: ALLERGIES Allergen Reactions - Erythromycin Hives, Swelling ROS: See HPI PE: 11/01/17 0931 BP: 108/76 Pulse: 84 Resp: 16 Weight: 93 kg (205 lb) Height: 165.1 cm (5' 5ANDquot;) Gen: AANDamp;O, NAD, non-toxic appearing, Pleasant, cooperative, obese HEENT: NT/AC, PERRLA, EOMs intact b/l, nares clear and patent b/l, pharynx without erythema, exudate or lesions. Uvula midline. Missing/decayed teeth, MMM, EACs without erythema or debris. TMs pearly beard with intact landmarks b/l. Neck: supple, No cervical LAD, no thyromegaly, no carotid bruits CV: RRR, normal S1 and S2, no murmurs, no gallops, no rubs, Pulses 2+ and symmetric in UE and LE b/l Lungs: normal respiratory effort, CTA b/l, no wheezing or rhonchi or rales Abd: soft, obese, NT, ND, +BS, no hepatosplenomegaly MS: FROM all 4 extremities Neuro: CN II-XII intact b/l, strength 5/5 b/l UE and LE, DTRs 2/4 UE and LE, sensation intact. Skin: warm, dry, intact, varicose veins b/l legs up to thighs with trace pretibial edema b/l legs, no ulcerations/wounds ASSESSMENT/PLAN: 1. Routine physical examination - ICD9: V70.0, ICD10: Z00.00 (primary diagnosis) - Encouraged monthly Breast Self Exam - Recommended calcium intake with supplements or by diet (goal of 4086-8937 mg/day - Recommended regular aerobic exercise. - Discussed need and benefit for weight loss. BMI 34.11 kg/(m2) - Follow up for annual exam in one year. 2. Mixed hyperlipidemia - ICD9: 272.2, ICD10: E78.2 - to be determined upon return of lab results - Continue current medication. - Encouraged following a low fat, low cholesterol diet. - Discussed the benefits of regular aerobic exercise and weight loss. - Check fasting lipid panel - LIPID PANEL BASIC 3. Type 2 diabetes mellitus with microalbuminuria, without long-term current use of insulin (HCC) - ICD9: 250.40, 791.0, ICD10: E11.29, R80.9 uncontrolled improved control - Continue current medications - Check HgA1C, fasting glucose and fasting lipid panel - HGB A1C - COMP METABOLIC PANEL - CBC - CONSULT TO OPHTHALMOLOGY 4. Hypothyroidism, postsurgical - ICD9: 244.0, ICD10: E89.0 - Instructed patient on importance of taking on an empty stomach either first thing in the morning or at bedtime. - check TSH and free T4 today - TSH BLD - T4 FREE/FREE THYROX 5. Varicose veins of bilateral lower extremities with pain - ICD9: 454.8, ICD10: I83.813 - rx as below, f/u with Vascular surgeon - GRAD COMPR STOCK THIGH 18-30 WEIGHT 6. 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 Paresthesia of right arm - ICD9: 782.0, ICD10: R20.2 - secondary to thoracic outlet syndrome, f/u with specialist 8. Paresthesia of left arm - ICD9: 782.0, ICD10: R20.2 - see above 9. Constipation, unspecified constipation type - ICD9: 564.00, ICD10: K59.00 - continue fiber and Miralax supplements 10. Obesity, Class I, BMI 30-34.9 - ICD9: 278.00, ICD10: E66.9 - Lengthy discussion in office today regarding diet and exercise. Discussed use of small plate to eat meals from, drink 1 glass of water 10- 15 minutes prior to eating meal, drink 8 glasses of water daily, eat fresh fruit and vegetable during meal first then lean protein such as grilled/baked chicken breast or fish, limit carbohydrate intake (less pasta, breads, rice and snack foods) as well as limiting sugars (desserts etc). Important to count / track your calories and exercise as well. Randall Magana, DO To ER if develops chest pain, shortness of breath, or severe worsening of symptoms. Discussed risks, benefits, alternatives, and potential side effects of medications. Patient expressed understanding and agreed with the plan. Randall Magana DO [address] [place] [address] Referring Provider: SELF [200] Allergies As of Date: 11/01/2017 Noted Allergy Reaction ERYTHROMYCIN 01/02/2009 4 - Hives 7 - Swelling Date Reviewed: 11/01/2017 Reviewed by: Ki Delgado LPN - Fully Assessed Reason for Visit: Physical [83] Primary Visit Diagnosis:Routine physical examination [Z00.00] Other Visit Diagnoses:Mixed hyperlipidemia [E78.2] Type 2 diabetes mellitus with microalbuminuria, without long-term current use of insulin (HCC) [E11.29, R80.9] Hypothyroidism, postsurgical [E89.0] Varicose veins of bilateral lower extremities with pain [I83.813] Arterial thoracic outlet syndrome of left subclavian artery [G54.0] Paresthesia of right arm [R20.2] Paresthesia of left arm [R20.2] Constipation, unspecified constipation type [K59.00] Obesity, Class I, BMI 30-34.9 [E66.9] Order(s):HGB A1C [[id number]] Order #: [id number] FUTURE LIPID PANEL BASIC [SQLIPB] Order #: [id number] FUTURE COMP METABOLIC PANEL [SQCMP] Order #: [id number] FUTURE CBC [SQCBC] Order #: [id number] FUTURE TSH BLD [SQTSH] Order #: [id number] FUTURE T4 FREE/FREE THYROX [SQFT4] Order #: [id number] FUTURE GRAD COMPR STOCK THIGH 18-30 WEIGHT [[id number]] Order #: [id number]: 2 CONSULT TO OPHTHALMOLOGY [9085] Order #: [id number]: 1 Prescriptions as of 11/01/2017 Sig: PANTOPRAZOLE 40 MG TABLET,DEL* Take 1 tablet by mouth once d* MUPIROCIN 2 % TOPICAL OINTMENT Apply 1 application to affect* DIPHENHYDRAMINE 25 MG CAPSULE Take 1 capsule by mouth every* BLOOD SUGAR DIAGNOSTIC STRIPS TEST BLOOD SUGARS 3 TIMES OSORIO* SIMVASTATIN 20 MG TABLET Take 1 tablet by mouth daily * GLIMEPIRIDE 1 MG TABLET TAKE 1 TABLET BY MOUTH ONCE D* VITAMIN-FERROUS FUMA* Take 1 tablet by mouth once d* CYCLOBENZAPRINE 10 MG TABLET TAKE 1 TABLET BY MOUTH THREE * SPIRONOLACTONE 100 MG TABLET TAKE 1 TABLET BY MOUTH ONCE D* METFORMIN 500 MG TABLET Take 2 tablets by mouth twice* ALOGLIPTIN 25 MG TABLET TAKE 1 TABLET BY MOUTH DAILY * LISINOPRIL 10 MG TABLET Take 1 tablet by mouth once d* LEVOTHYROXINE 175 MCG TABLET TAKE 1 TABLET BY MOUTH EVERY * DICYCLOMINE 20 MG TABLET TAKE 1 TABLET BY MOUTH 4 TIME* BETAMETHASONE DIPROPIONATE 0.* Apply 1 application to affect* BENECALORIE ORAL Take by mouth. CLINDAMYCIN PHOSPHATE 1 % TOP* Apply 1 application to affect* BLOOD-GLUCOSE METER, DRUM-TYP* Use as directed 6 times daily NORETHINDRONE (CONTRACEPTIVE)* Take 1 tablet by mouth once d* MUPIROCIN 2 % TOPICAL OINTMENT Apply 1 application to affect* Problem List As Of Date 11/01/2017 Noted Resolved Supervision of other high-risk [O09.8*INVALID FOR*01/28/2012 Obesity [E66.9] INVALID FOR* GERD (gastroesophageal reflux disease) [K21.9] INVALID FOR* Depression [F32.9] INVALID FOR* Hypothyroidism, postsurgical [E89.0] INVALID FOR* Type 2 diabetes mellitus with microalbuminuria,*INVALID FOR* Hyperprolactinemia [E22.1] INVALID FOR*08/16/2014 Stress incontinence [N39.3] INVALID FOR* Mixed hyperlipidemia [E78.2] INVALID FOR* History of thyroid cancer [Z85.850] INVALID FOR* Coccygeal arthritis [M48.9] INVALID FOR*08/28/2016 Obesity, Class I, BMI 30-34.9 [E66.9] INVALID FOR* Constipation [K59.00] INVALID FOR* Paresthesia of left arm [R20.2] INVALID FOR* Paresthesia of right arm [R20.2] INVALID FOR* Varicose veins of bilateral lower extremities w*INVALID FOR* Arterial thoracic outlet syndrome of left subcl*INVALID FOR* Encounter Status:Closed by RANDALL MAGANA DO on 11/01/17 LAUREENTOUTREACH Observed: 10/14/2017 Status: COMPLETED Source: [place] 12:00 AM [facility] REPOSITORY Patient Outreach ([facility]) JUAN MENCHACA ([id number]) 1980 F Date Time Provider Department 10/14/17 RANDALL MAGANA During your visit today, we recorded the following information about you: Allergies As of Date: 10/14/2017 Noted Allergy Reaction ERYTHROMYCIN 01/02/2009 4 - Hives 7 - Swelling Date Reviewed: 10/03/2017 Reviewed by: Ml ([facility]) APRN. [facility] - Fully Assessed Visit Diagnosis:Medication management [Z79.899] Order(s):HGB A1C [[id number]] Order #: [id number] FUTURE Prescriptions as of 10/14/2017 Sig: PANTOPRAZOLE 40 MG TABLET,DEL* Take 1 tablet by mouth once d* DIPHENHYDRAMINE 25 MG CAPSULE Take 1 capsule by mouth every* X MUPIROCIN 2 % TOPICAL OINTMENT Apply 1 application to affect* Patient not taking: Reported on 11/05/2017 X BLOOD SUGAR DIAGNOSTIC STRIPS TEST BLOOD SUGARS 3 TIMES OSORIO* X SIMVASTATIN 20 MG TABLET Take 1 tablet by mouth daily * X GLIMEPIRIDE 1 MG TABLET TAKE 1 TABLET BY MOUTH ONCE D* VITAMIN-FERROUS FUMA* Take 1 tablet by mouth once d* X CYCLOBENZAPRINE 10 MG TABLET TAKE 1 TABLET BY MOUTH THREE * X SPIRONOLACTONE 100 MG TABLET TAKE 1 TABLET BY MOUTH ONCE D* X METFORMIN 500 MG TABLET Take 2 tablets by mouth twice* X ALOGLIPTIN 25 MG TABLET TAKE 1 TABLET BY MOUTH DAILY * X LISINOPRIL 10 MG TABLET Take 1 tablet by mouth once d* X NORETHINDRONE (CONTRACEPTIVE)* Take 1 tablet by mouth once d* Patient not taking: Reported on 11/05/2017 X MUPIROCIN 2 % TOPICAL OINTMENT Apply 1 application to affect* Patient not taking: Reported on 11/05/2017 X LEVOTHYROXINE 175 MCG TABLET TAKE 1 TABLET BY MOUTH EVERY * DICYCLOMINE 20 MG TABLET TAKE 1 TABLET BY MOUTH 4 TIME* BETAMETHASONE DIPROPIONATE 0.* Apply 1 application to affect* X BENECALORIE ORAL Take by mouth. X CLINDAMYCIN PHOSPHATE 1 % TOP* Apply 1 application to affect* Patient not taking: Reported on 11/05/2017 BLOOD-GLUCOSE METER, DRUM-TYP* Use as directed 6 times daily Problem List As Of Date 10/14/2017 Noted Resolved Supervision of other high-risk [O09.8*INVALID FOR*01/28/2012 Obesity [E66.9] INVALID FOR* GERD (gastroesophageal reflux disease) [K21.9] INVALID FOR* Depression [F32.9] INVALID FOR* Hypothyroidism, postsurgical [E89.0] INVALID FOR* Type 2 diabetes mellitus with microalbuminuria,*INVALID FOR* Hyperprolactinemia [E22.1] INVALID FOR*08/16/2014 Stress incontinence [N39.3] INVALID FOR* Mixed hyperlipidemia [E78.2] INVALID FOR* History of thyroid cancer [Z85.850] INVALID FOR* Coccygeal arthritis [M48.9] INVALID FOR*08/28/2016 Encounter Status:Closed by DANIA CLIFFORD on 05/08/18 MARY Observed: 10/10/2017 Status: COMPLETED Source: [place] 12:00 AM [facility] RE[facility] Letter Text Juan Menchaca [address] [facility] [address] 10/10/2017 [facility] #: [id number] Dear , Due to a change in the provider's schedule it has been necessary to reschedule your Appointment. Your original appointment was scheduled for 11/08/2017 at 9:20 AM with Randall Magana DO. Your new appointment is now scheduled on 11/01/2017 at 9:20 AM with Randall Magana DO. If this new appointment is not convenient for you, please contact our office at [phone]. Thank you for choosing the [facility] as your Healthcare Provider . Sincerely, Family Medicine Appointment Office CNOV Observed: 10/03/2017 Status: COMPLETED Source: [place] 7:00 PM [facility] Office Visit ([facility]) JUAN MENCHACA ([id number]) 1980 F Date Time Provider Department 10/03/17 7:00 PM ML BOUDREAUX (LAUREEN) [facility] During your visit today, we recorded the following information about you: Temperature Pulse Respiration Blood pressure 98.6 degrees 102/minute 16/minute 100/60 Weight 93.4 kg Ml Boudreaux CNP 10/03/2017 7:22 PM Signed Subjective HPI Juan Menchaca is a 36 year old female who presents with bumps on her left upper arm. She fell asleep in her chair today at 2:30 (4 hours ago) and woke up 20 minutes later and her arm was itching and had bumps on it. She has a total of 5 bumps on her arm. She did not put anything on it or take any medication for it. Review of Systems Constitutional: Negative. Negative for fever. Musculoskeletal: Negative. Skin: Positive for itching. See HPI BP 100/60 Pulse 102 Temp 37 ?C (98.6 ?F) (Left Tympanic) Resp 16 Wt 93.4 kg (206 lb) BMI 34.02 kg/m2 PAST MEDICAL HISTORY Diagnosis Date - Abnormal glandular Papanicolaou smear of cervix Abn. Pap smear (cervix) - Acute anal fissure - Allergic rhinitis - Asthma CHILDHOOD ASTHMA - Coccygeal arthritis seen on xray - Diabetes mellitus 01/2010 DM2, insulin dependent - Dyspareunia 07/24/2013 - GERD (gastroesophageal reflux disease) - Hidradenitis suppurativa 01/28/2012 - Hypertension - PCOS (polycystic ovarian syndrome) - Right shoulder pain 12/11/2012 - Rosacea - Thyroid cancer (HCC) 10/02/2012 s/p thyroidectomy, Dr. Camacho PAST SURGICAL HISTORY Procedure Laterality Date - COLONOSCOP W/ OR W/O BRSH SPEC 09/07/2014 Colonoscopy - EGD W/O OR W/BRUSH/WASH 11/11/13 EGD - FNA WITH IMAGING 08/19/12 U/S FNA left thyroid nodule - LAPAROSCOPY DIAGNOSTIC 2011 ectopic salpingectomy, L ovarian cystectomies - LEEP PROCEDURE (EXECUTIVE DIRECTOR OF NURSING DEPT)_*[place] 1993 ANDamp;1995 - OTHER 08/03/2014 left axillary skin resection hidratinitis - THYROIDECTOMY 10-02-12 TOTAL - cancerous. ALLERGIES Erythromycin MEDICATIONS blood sugar diagnostic (FREESTYLE LITE STRIPS) test strip TEST BLOOD SUGARS 3 TIMES DAILY simvastatin (ZOCOR) 20 mg tablet Take 1 tablet by mouth daily at bedtime. glimepiride (AMARYL) 1 mg tablet TAKE 1 TABLET BY MOUTH ONCE DAILY multivitamin ( VITAMIN WITH MINERALS) 28 mg iron- 800 mcg tab Take 1 tablet by mouth once daily. cyclobenzaprine (FLEXERIL) 10 mg tablet TAKE 1 TABLET BY MOUTH THREE TIMES DAILY NEEDED. pantoprazole DR (PROTONIX) 40 mg tablet Take 1 tablet by mouth once daily. spironolactone (ALDACTONE) 100 mg tablet TAKE 1 TABLET BY MOUTH ONCE DAILY. metFORMIN (GLUCOPHAGE) 500 mg tablet Take 2 tablets by mouth twice daily with meals. alogliptin 25 mg tab TAKE 1 TABLET BY MOUTH DAILY BEFORE DINNER. lisinopril (ZESTRIL, PRINIVIL) 10 mg tablet Take 1 tablet by mouth once daily. Norethindrone, Contraceptive, 0.35 mg tablet Take 1 tablet by mouth once daily. mupirocin (BACTROBAN) 2 % ointment Apply 1 application to affected area twice daily. levothyroxine (SYNTHROID) 175 mcg tablet TAKE 1 TABLET BY MOUTH EVERY DAY dicyclomine (BENTYL) 20 mg tablet TAKE 1 TABLET BY MOUTH 4 TIMES A DAY NEEDED betamethasone dipropionate (DIPROSONE) 0.05 % cream Apply 1 application to affected area twice daily as needed. CALORIC SUPPLEMENT (BENECALORIE ORAL) Take by mouth. clindamycin (CLEOCIN) 1 % external solution Apply 1 application to affected area as directed. for 10 days, then discontinue Blood-Glucose Meter, Drum-type (ACCU-CHEK COMPACT PLUS CARE) kit Use as directed 6 times daily FAMILY HISTORY Problem Relation Age of Onset - Diabetes Mother diverticular disease - Hypertension Mother - Arthritis Mother - Asthma Mother - Lipids Mother - Cancer Mother 60 anal - Diabetes Father - Hypertension Father - Diabetes Sister - Thyroid Sister - Hypertension Sister - Diabetes Sister - endometriosis [OTHER] Sister - Breast Cancer Maternal Grandmother 30 - Breast Cancer Maternal Aunt 18 bilateral mastectomy Social History Substance Use Topics - Smoking status: Current Every Day Smoker Packs/day: 0.50 Years: 9.00 Types: Cigarettes Last attempt to quit: 01/25/2014 - Smokeless tobacco: Never Used - Alcohol use Yes Comment: Seldom Objective Physical Exam Constitutional: She is well-developed, well-nourished, and in no distress. Musculoskeletal: Arms: Neurological: She is alert. Skin: Skin is warm and dry. No rash noted. There is erythema. Nursing note and vitals reviewed. ASSESSMENT/PLAN: 1. Insect bite, initial encounter - ICD9: 919.4, E906.4, ICD10: W57.XXXA - MUPIROCIN 2 % TOPICAL OINTMENT - DIPHENHYDRAMINE 25 MG CAPSULE - Follow-up with your PCP in 3-5 days if symptoms have not improved or sooner if symptoms worsen - Discussed red flags and need for immediate medical evaluation if any occur. - Discussed supportive care treatment with fluids, rest and analgesia. - Discussed expected course of illness LAUREEN Lyman CNP 10/03/2017 7:03 PM Signed Insect Bites Insect bites can cause red bumps in people who are allergic to them, but they cause no visible skin changes in people who are not allergic. Therefore, only one or two people in a family usually get red bumps from insect bites, even though everyone may have been bitten. Children are especially likely to react to insect bites. Although red bumps are the most common sign of' insect bites, people who are very allergic and people with tender skin, such as children, may develop blisters over the bites as well. Most often, insect bites are itchy. The most common insects to cause bites are fleas and mosquitoes. Flea bites are usually painless, so people are often unaware of being bitten. Mosquito bites are often noticed by adults but are sometimes overlooked by busy children until the bumps and itching appear. Horseflies and deerflies can cause insect bites, but the bite is painful, so most people notice and remember being bitten. The treatment of insect bites includes avoidance of the insects in the future. Defleaing an animal rids the animal of the fleas, but then fleas may be more likely to bite people. Be sure to deflea the house and yard as well. Susceptible people should wear an insect repellant such as Off, Cutter, or 6-12 until the fleas are gone. People sensitive to mosquito bites should avoid being outdoors in the evening, when mosquitoes are most active. Insect repellents can be useful for the prevention of the bites as well. Removal of obvious breeding areas of standing water can be helpful. Insect bites, especially flea bites, can sometimes be very long lasting, with bumps persisting for several weeks. This is especially common when the spots are being scratched. Also, bites can become infected when scratched often, especially in children. You may have been given a cortisone cream to put on the bumps to help stop the itching, or an antibiotic if your bites look infected. If you have problems sleeping at night because of itching, you can take diphenhydramine (Benadryl), an upfs-lvc-lpqefcz medication. Adults may need 50 or 75 mg, and children may need two or three times the child's dose printed on the bottle. Often, brown spots remain after the bumps heal. This is just a temporary color change, and scarring generally does not occur except when bites become infected. Referring Provider: SELF [[id number]] Allergies As of Date: 10/03/2017 Noted Allergy Reaction ERYTHROMYCIN 01/02/2009 4 - Hives 7 - Swelling Date Reviewed: 10/03/2017 Reviewed by: Ml ([facility]) Kanika - Fully Assessed Reason for Visit: Rash [1087] Primary Visit Diagnosis:Insect bite, initial encounter [W57.XXXA] Order(s):mupirocin (BACTROBAN) 2 % ointmentApply 1 application to affected area three times daily. Location: left upper armDisp: 15 gRfl: 0 diphenhydrAMINE (BENADRYL) 25 mg capsuleTake 1 capsule by mouth every 6 hours as needed for Itching/Rash.Disp: 20 capsuleRfl: 0 Prescriptions as of 10/03/2017 Sig: MUPIROCIN 2 % TOPICAL OINTMENT Apply 1 application to affect* DIPHENHYDRAMINE 25 MG CAPSULE Take 1 capsule by mouth every* BLOOD SUGAR DIAGNOSTIC STRIPS TEST BLOOD SUGARS 3 TIMES OSORIO* SIMVASTATIN 20 MG TABLET Take 1 tablet by mouth daily * GLIMEPIRIDE 1 MG TABLET TAKE 1 TABLET BY MOUTH ONCE D* VITAMIN-FERROUS FUMA* Take 1 tablet by mouth once d* CYCLOBENZAPRINE 10 MG TABLET TAKE 1 TABLET BY MOUTH THREE * PANTOPRAZOLE 40 MG TABLET,DEL* Take 1 tablet by mouth once d* SPIRONOLACTONE 100 MG TABLET TAKE 1 TABLET BY MOUTH ONCE D* METFORMIN 500 MG TABLET Take 2 tablets by mouth twice* ALOGLIPTIN 25 MG TABLET TAKE 1 TABLET BY MOUTH DAILY * LISINOPRIL 10 MG TABLET Take 1 tablet by mouth once d* NORETHINDRONE (CONTRACEPTIVE)* Take 1 tablet by mouth once d* MUPIROCIN 2 % TOPICAL OINTMENT Apply 1 application to affect* LEVOTHYROXINE 175 MCG TABLET TAKE 1 TABLET BY MOUTH EVERY * DICYCLOMINE 20 MG TABLET TAKE 1 TABLET BY MOUTH 4 TIME* BETAMETHASONE DIPROPIONATE 0.* Apply 1 application to affect* BENECALORIE ORAL Take by mouth. CLINDAMYCIN PHOSPHATE 1 % TOP* Apply 1 application to affect* BLOOD-GLUCOSE METER, DRUM-TYP* Use as directed 6 times daily Problem List As Of Date 10/03/2017 Noted Resolved Supervision of other high-risk [O09.8*INVALID FOR*01/28/2012 Obesity [E66.9] INVALID FOR* GERD (gastroesophageal reflux disease) [K21.9] INVALID FOR* Depression [F32.9] INVALID FOR* Hypothyroidism, postsurgical [E89.0] INVALID FOR* Type 2 diabetes mellitus with microalbuminuria,*INVALID FOR* Hyperprolactinemia [E22.1] INVALID FOR*08/16/2014 Stress incontinence [N39.3] INVALID FOR* Mixed hyperlipidemia [E78.2] INVALID FOR* History of thyroid cancer [Z85.850] INVALID FOR* Coccygeal arthritis [M48.9] INVALID FOR*08/28/2016 Other instructions from your clinician: Insect Bites Insect bites can cause red bumps in people who are allergic to them, but they cause no visible skin changes in people who are not allergic. Therefore, only one or two people in a family usually get red bumps from insect bites, even though everyone may have been bitten. Children are especially likely to react to insect bites. Although red bumps are the most common sign of' insect bites, people who are very allergic and people with tender skin, such as children, may develop blisters over the bites as well. Most often, insect bites are itchy. The most common insects to cause bites are fleas and mosquitoes. Flea bites are usually painless, so people are often unaware of being bitten. Mosquito bites are often noticed by adults but are sometimes overlooked by busy children until the bumps and itching appear. Horseflies and deerflies can cause insect bites, but the bite is painful, so most people notice and remember being bitten. The treatment of insect bites includes avoidance of the insects in the future. Defleaing an animal rids the animal of the fleas, but then fleas may be more likely to bite people. Be sure to deflea the house and yard as well. Susceptible people should wear an insect repellant such as Off, Cutter, or 6-12 until the fleas are gone. People sensitive to mosquito bites should avoid being outdoors in the evening, when mosquitoes are most active. Insect repellents can be useful for the prevention of the bites as well. Removal of obvious breeding areas of standing water can be helpful. Insect bites, especially flea bites, can sometimes be very long lasting, with bumps persisting for several weeks. This is especially common when the spots are being scratched. Also, bites can become infected when scratched often, especially in children. You may have been given a cortisone cream to put on the bumps to help stop the itching, or an antibiotic if your bites look infected. If you have problems sleeping at night because of itching, you can take diphenhydramine (Benadryl), an isau-aqu-uzwkihz medication. Adults may need 50 or 75 mg, and children may need two or three times the child's dose printed on the bottle. Often, brown spots remain after the bumps heal. This is just a temporary color change, and scarring generally does not occur except when bites become infected. Prescriptions ordered this encounter Disp Refills Start End MUPIROCIN 2 % TOPICAL OINTMENT 15 g 0 10/03/2017 Route: TOPICAL Sig: Apply 1 application to affected area three times daily. Location: left upper arm DIPHENHYDRAMINE 25 MG CAPSULE 20 c* 0 10/03/2017 Route: ORAL Sig: Take 1 capsule by mouth every 6 hours as needed for Itching/Rash. Encounter Status:Closed by ML BOUDREAUX on 10/03/17 PROGRESS Observed: 10/03/2017 Status: COMPLETED Source: [place] 6:58 PM [facility] [place] REPOSITORY HNO ID: [id number] Author: Ml (Sales Training Representative) Kanika Service: (none) Author Type: Nurse Practitioner Type: Progress Notes Filed: 10/03/2017 7:22 PM Note Text: Subjective HPI Juan Menchaca is a 36 year old female who presents with bumps on her left upper arm. She fell asleep in her chair today at 2:30 (4 hours ago) and woke up 20 minutes later and her arm was itching and had bumps on it. She has a total of 5 bumps on her arm. She did not put anything on it or take any medication for it. Review of Systems Constitutional: Negative. Negative for fever. Musculoskeletal: Negative. Skin: Positive for itching. See HPI BP 100/60 Pulse 102 Temp 37 ?C (98.6 ?F) (Left Tympanic) Resp 16 Wt 93.4 kg (206 lb) BMI 34.02 kg/m2 PAST MEDICAL HISTORY Diagnosis Date - Abnormal glandular Papanicolaou smear of cervix Abn. Pap smear (cervix) - Acute anal fissure - Allergic rhinitis - Asthma CHILDHOOD ASTHMA - Coccygeal arthritis seen on xray - Diabetes mellitus 01/2010 DM2, insulin dependent - Dyspareunia 07/24/2013 - GERD (gastroesophageal reflux disease) - Hidradenitis suppurativa 01/28/2012 - Hypertension - PCOS (polycystic ovarian syndrome) - Right shoulder pain 12/11/2012 - Rosacea - Thyroid cancer (HCC) 10/02/2012 s/p thyroidectomy, Dr. Camacho PAST SURGICAL HISTORY Procedure Laterality Date - COLONOSCOP W/ OR W/O BRSH SPEC 09/07/2014 Colonoscopy - EGD W/O OR W/BRUSH/WASH 11/11/13 EGD - FNA WITH IMAGING 08/19/12 U/S FNA left thyroid nodule - LAPAROSCOPY DIAGNOSTIC 2011 ectopic salpingectomy, L ovarian cystectomies - LEEP PROCEDURE (EXECUTIVE DIRECTOR OF NURSING DEPT)_*FL 1993 [id number] - OTHER 08/03/2014 left axillary skin resection hidratinitis - THYROIDECTOMY 10-02-12 TOTAL - cancerous. ALLERGIES Erythromycin MEDICATIONS blood sugar diagnostic (FREESTYLE LITE STRIPS) test strip TEST BLOOD SUGARS 3 TIMES DAILY simvastatin (ZOCOR) 20 mg tablet Take 1 tablet by mouth daily at bedtime. glimepiride (AMARYL) 1 mg tablet TAKE 1 TABLET BY MOUTH ONCE DAILY multivitamin ( VITAMIN WITH MINERALS) 28 mg iron- 800 mcg tab Take 1 tablet by mouth once daily. cyclobenzaprine (FLEXERIL) 10 mg tablet TAKE 1 TABLET BY MOUTH THREE TIMES DAILY NEEDED. pantoprazole DR (PROTONIX) 40 mg tablet Take 1 tablet by mouth once daily. spironolactone (ALDACTONE) 100 mg tablet TAKE 1 TABLET BY MOUTH ONCE DAILY. metFORMIN (GLUCOPHAGE) 500 mg tablet Take 2 tablets by mouth twice daily with meals. alogliptin 25 mg tab TAKE 1 TABLET BY MOUTH DAILY BEFORE DINNER. lisinopril (ZESTRIL, PRINIVIL) 10 mg tablet Take 1 tablet by mouth once daily. Norethindrone, Contraceptive, 0.35 mg tablet Take 1 tablet by mouth once daily. mupirocin (BACTROBAN) 2 % ointment Apply 1 application to affected area twice daily. levothyroxine (SYNTHROID) 175 mcg tablet TAKE 1 TABLET BY MOUTH EVERY DAY dicyclomine (BENTYL) 20 mg tablet TAKE 1 TABLET BY MOUTH 4 TIMES A DAY NEEDED betamethasone dipropionate (DIPROSONE) 0.05 % cream Apply 1 application to affected area twice daily as needed. CALORIC SUPPLEMENT (BENECALORIE ORAL) Take by mouth. clindamycin (CLEOCIN) 1 % external solution Apply 1 application to affected area as directed. for 10 days, then discontinue Blood-Glucose Meter, Drum-type (ACCU-CHEK COMPACT PLUS CARE) kit Use as directed 6 times daily FAMILY HISTORY Problem Relation Age of Onset - Diabetes Mother diverticular disease - Hypertension Mother - Arthritis Mother - Asthma Mother - Lipids Mother - Cancer Mother 60 anal - Diabetes Father - Hypertension Father - Diabetes Sister - Thyroid Sister - Hypertension Sister - Diabetes Sister - endometriosis [OTHER] Sister - Breast Cancer Maternal Grandmother 30 - Breast Cancer Maternal Aunt 18 bilateral mastectomy Social History Substance Use Topics - Smoking status: Current Every Day Smoker Packs/day: 0.50 Years: 9.00 Types: Cigarettes Last attempt to quit: 01/25/2014 - Smokeless tobacco: Never Used - Alcohol use Yes Comment: Seldom Objective Physical Exam Constitutional: She is well-developed, well-nourished, and in no distress. Musculoskeletal: Arms: Neurological: She is alert. Skin: Skin is warm and dry. No rash noted. There is erythema. Nursing note and vitals reviewed. ASSESSMENT/PLAN: 1. Insect bite, initial encounter - ICD9: 919.4, E906.4, ICD10: W57.XXXA - MUPIROCIN 2 % TOPICAL OINTMENT - DIPHENHYDRAMINE 25 MG CAPSULE - Follow-up with your PCP in 3-5 days if symptoms have not improved or sooner if symptoms worsen - Discussed red flags and need for immediate medical evaluation if any occur. - Discussed supportive care treatment with fluids, rest and analgesia. - Discussed expected course of illness Ml Henry-LAUREEN Nichols ALLERGIES ALLERGIES DATE TYPE / CODE NAME / CODE REACTION SEVERITY SOURCE 01/08/2014 Drug erythromycin Hives Unknown [place] Allergy/416 base/[id number]([facility] [id number]([facility]) Repository 01/02/2009 DRUG/[id number] ERYTHROMYCIN HIVES [facility] [place] [facility] Repository ENCOUNTERS ENCOUNTERS ADMIT/DISCHARGE ACCOUNT ADMITTING ENCOUNTER LOCATION SOURCE NUMBER CLASS 08/12/2018 [id number] Ambulatory [facility] ing:MRI Repository 07/29/2018/07/29/19 [id number] Ambulatory [address] [place] Repository 07/17/2018/07/20/20 [id number] Ambulatory [address] [place] Repository 05/29/2018/06/01/20 [id number] Ambulatory [address] [place] Repository 05/16/2018/05/16/20 [id number] Ambulatory [address] [place] Repository 12/12/2017/12/13/19 [id number] Ambulatory [address] Repository 12/12/2017/01/02/20 [id number] Ambulatory [address] [place] Repository 12/12/2017/12/13/19 [id number] Ambulatory [address] Repository 11/05/2017/11/06/19 [id number] Ambulatory [address] Repository 11/01/2017 [id number] Ambulatory [facility] Repository 11/01/2017/11/04/19 [id number] Ambulatory [address] Repository 10/03/2017/10/07/19 [id number] Ambulatory [address] Repository PAYERS PAYERS ENCOUNTER GUARANTOR PAYER SUBSCRIBER SOURCE 08/12/2018 [place] [id number] Primary JUAN [employer] Insurance:CAMPBELLCHRISSY HAYWARDB: [facility] Number: [id number] Hospital 116[address]Nnn: ([phone]) [id number] Repository [phone] () Date:2018-07-23[address]ATTN: [place] [address]GJ: 08/12/2018 Secondary NOT GIVENBHAVNA Mcgee Insurance:SELF PAY [facility] Number: Effective Repository Date:2018-07-23
== END ==
PROVIDERS: Family Provider Student in an Organized Health Care Education/Training Program; PCP Student in an Organized Health Care Education/Training Program; Referring Provider Student in an Organized Health Care Education/Training Program; Visit Provider Student in an Organized Health Care Education/Training Program
DX: M54.16 Radiculopathy, lumbar region (principal); M54.2 Cervicalgia; G89.29 Other chronic pain; R29.898 Other symptoms and signs involving the musculoskeletal system; R20.2 Paresthesia of skin
CPT/HCPCS: 72141

== ENCOUNTER → 2019-05-05 14:24 | Outpatient (CLI) | payer MEDICAID, SELFPAY ==
--- NOTE | 2019-05-05 15:23 | NEURO_ITS ---
NCS and/or EMG Patient Report Ordering Doctor: Randall Fink DATE OF SERVICE: 05/05/19 Miladis Menchaca is a 38-year-old female presents for electrodiagnostic testing of the upper limbs. She reports numbness and tingling, primarily in the left hand. Electrodiagnostic findings: Left median motor nerve demonstrates prolonged distal latency with normal amplitude and reduced conduction velocity. Normal right median motor response. Normal ulnar motor response bilaterally. Median ulnar F waves are normal. Left median sensory latency is prolonged at the wrist. Normal right median sensory response. Normal ulnar and radial sensory responses bilaterally. On needle EMG, all muscles tested in the upper limb show ed no evidence of denervation with normal motor unit action potentials. Next Electrodiagnostic impression: This is an abnormal study in the upper limbs. 1. Electrodiagnostic findings demonstrate left-sided median mononeuropathy. This is consistent with a moderate left carpal tunnel syndrome there is no electrodiagnostic evidence for right-sided carpal tunnel syndrome. If there are any further questions please not hesitate to contact me
== END ==
PROVIDERS: Family Provider Student in an Organized Health Care Education/Training Program; PCP Student in an Organized Health Care Education/Training Program; Referring Provider Student in an Organized Health Care Education/Training Program; Visit Provider Student in an Organized Health Care Education/Training Program
DX: R20.2 Paresthesia of skin (principal)
CPT/HCPCS: 95886; 95912

== ENCOUNTER → 2019-07-30 16:11 | Outpatient (CLI) | payer MEDICAID, SELFPAY ==
--- NOTE | 2019-07-30 16:15 | MRI_ITS ---
STUDY: MRI LEFT SHOULDER REASON FOR EXAM: Female, 38 years old. Numbness/tingling Left shoulder, pain and decreased ROM TECHNIQUE: Standardized fat and water weighted pulse sequences were obtained in all 3 orthogonal planes. COMPARISON: None. FINDINGS: Normal supraspinatus tendon. Normal infraspinatus tendon. Normal subscapularis tendon. Normal teres minor tendon. Visualized muscles of the rotator cuff are intact. Marrow signal is normal, with no fracture, bone contusion, or osteonecrosis. Normal glenohumeral articulation. Normal biceps labral complex. Normal intracapsular long biceps tendon. Normal labrum. Normal capsulo- ligamentous complex. Normal rotator interval. Normal acromioclavicular articulation. There is a Type II morphology (curved), with a neutral orientation. There is no subacromial-subdeltoid bursal fluid. Normal visualized coracohumeral and coracoacromial ligaments. MRI/Upper Ext Joint Only(Routine) IMPRESSION: Normal MRI of the shoulder. Electronically Signed: Daily Ayers MD at 22:27 EST Tel , Service support ,
== END ==
PROVIDERS: Family Provider Student in an Organized Health Care Education/Training Program; PCP Student in an Organized Health Care Education/Training Program; Referring Provider Student in an Organized Health Care Education/Training Program; Visit Provider Student in an Organized Health Care Education/Training Program
DX: M25.312 Other instability, left shoulder (principal); M79.602 Pain in left arm; M25.512 Pain in left shoulder; G89.29 Other chronic pain; R20.0 Anesthesia of skin; R20.2 Paresthesia of skin
CPT/HCPCS: 73221

== ENCOUNTER 2021-09-15 08:46 | Outpatient (CLI) | payer OTHER, MEDICAID, SELFPAY ==
--- NOTE | 2021-09-15 09:05 | MRI_ITS ---
STUDY: MRI CERVICAL SPINE WITHOUT CONTRAST REASON FOR EXAM: Female, 40 years old. LEFT SIDED NECK PAIN;PARESTHESIA OF LEFT ARM;WEAKNESS IN LEFT CUNHA TECHNIQUE: Standardized fat and water weighted pulse sequences were obtained in the sagittal and axial planes. COMPARISON: None FINDINGS: Normal foramen magnum and brainstem-cervical cord junction. Normal craniovertebral junction. Normal anterior atlantoaxial articulation. Normal odontoid process. Normal cervical lordosis. Normal vertebral bodies and posterior osseous elements. C2-3: Normal endplates. Normal disc height, signal and morphology. Normal central canal and intervertebral neural foramina. C3-4, C4-5, C5-6 and C6-7: Endplate spondylosis. Central and paracentral disc bulge. Degenerative changes of the bilateral facet joints and uncovertebral joints. Moderate narrowing of the central canal and mild narrowing of the bilateral intervertebral neural foramina. Normal cervical cord. Normal visualized soft tissue structures. MRI/Spine Cervical (Routine) IMPRESSION: Multilevel degenerative changes, as described above. Electronically Signed: Antoinette Hahn MD at 23:28 EST ,
== END 2021-09-15 23:59 | disposition home or self-care (01) ==
LOC: MRI 08:48
PROVIDERS: PCP Student in an Organized Health Care Education/Training Program; Referring Provider Student in an Organized Health Care Education/Training Program; Visit Provider Student in an Organized Health Care Education/Training Program
DX: G54.2 Cervical root disorders, not elsewhere classified (principal); M54.2 Cervicalgia; R20.2 Paresthesia of skin; R29.898 Other symptoms and signs involving the musculoskeletal system
CPT/HCPCS: 72141

== ENCOUNTER → 2025-03-01 | Outpatient (CLI) | payer BC, MEDICAID, SELFPAY ==
--- NOTE | 2025-03-01 12:51 | STEWCON_ITS ---
Reason For Study Reason For Study: NSTEMI; Chest Pain Stress Results Protocol: Gilson Protocol WITH DEFINITY Maximum Predicted HR: 174 bpm Target HR: 148 bpm % Maximum Predicted HR: 89 % DurationHeart Rate Stage (mm:ss) (bpm) BP Comment Baseline 83 122/78No Chest Pain; 2 ML Diluted Definity Gilson Protocol Stage I 3:00 118 144/70No Chest Pain Gilson Protocol Stage II 3:00 136 160/70Mild Chest Tightness; Mild Dyspnea Gilson Protocol Stage III 0:45 155 / Mild Chest Tightness; Moderate Dyspnea Recovery 98 112/60No Chest Pain Stress Duration: 6:45 mm:ss Maximum Stress HR: 155 bpm METS: 9 Baseline Echocardiogram Findings Stress Echo Wall motion Data Resting WM Intermediate WM Stress WM ECHO/Stress Test Echo W/Contrast Interpretation Summary Exercise stress echo. 44-year-old male with a history of chest pain and shortness of breath with exer tion. Resting EKG demonstrates normal sinus rhythm with a rate of 84 bpm resting bloo d pressure is 122/78 mmHg. The patient exercised according to the regular Gilson protocol for total duration of 6 minut es and 45 seconds completing 45 seconds to stage III of the Gilson protocol the maximum heart rate attained was 155 bpm which was 89% of maximum predicted heart rate the maximum workload was 9 metabolic equivalents. At rest there were no ST or T wave changes noted suggest ischemia and at peak exercise upsloping ST changes were noted we did not meet the criter ia for ischemia. There was mild chest tightness noted at peak exercise as well as dyspnea. The peak blood pressure wa s 160/70 mmHg with a rate-pressure product of 21,760 which was a good blood pressure response to exercise. Stress echocardiogram. Resting echocardiogram performed with Definity enhancement demonstrated an ejec tion fraction of approximately 60%. With exercise there was improvement in the heart function with contractility on all lu with improvement in ejection fraction to 70% with no wall motion abnormalities noted to suggest ischemia. Conclusion: Exercise stress echocardiogram with no EKG changes suggestive of ischemia. Norm al resting and stress echocardiographic images with Definity enhancement. Ordering Physician: Mack Gomez Referring Physician: Mack Gomez Performed By: Sangita Aranda, MYLES, RVT
== END | disposition home or self-care (01) ==
LOC: CVS 12:50
PROVIDERS: PCP Student in an Organized Health Care Education/Training Program; Referring Provider Internal Medicine Cardiovascular Disease; Visit Provider Internal Medicine Cardiovascular Disease
DX: R07.9 Chest pain, unspecified (principal); I21.4 Non-ST elevation (NSTEMI) myocardial infarction
CPT/HCPCS: 93017; 93350; Q9957; A4216; C8928